=== PATIENT | male | born 1930 | race Caucasian/White ===

== ENCOUNTER 2018-06-14 15:43 | Outpatient (CLI) | payer MEDICARE ==
[2018-06-14 17:33] LABS: #Eosinphils 0.9 thou/uL (0.0-0.7); #Lymphocytes 2.1 thou/uL (1.20-3.40); #Monocytes 0.7 thou/uL (0.11-0.59); #Neutrophils 5.3 thou/uL (1.40-6.50); %Basophils 0.1 % (0.0-1.0); %Eosinophils 9.6 % (0.0-10.0); %Lymphocytes 23.3 % (21.0-51.0); %Monocytes 8.2 % (0.0-10.0); %Neutrophils 58.9 % (42.0-75.0); Hemoglobin 14.1 g/dL (14.0-18.0); Mean Corpuscular HGB CONC 33.1 g/dL (32.0-36.0); Mean Corpuscular Hemoglobin 31.1 pg (27.0-31.0); Mean Corpuscular Volume 93.9 fL (78.0-98.0); Mean Platelet Volume 7.6 fL (7.4-10.4); Platelet Count 304 thou/uL (130-400); RBC Distribution Width 12.3 % (11.5-14.5); Red Blood Cell (RBC) Count 4.55 mill/uL (4.70-6.10)
[2018-06-14 17:39] LABS: PTT 28.7 SEC (22.9-36.1); Prothrombin Time 13.5 SEC (12.0-14.7)
[2018-06-14 18:20] LABS: ALT (SGPT) 12 U/L (8-55); AST (SGOT) 15 U/L (5-34); Albumin 4.3 g/dL (3.4-4.8); Alkaline Phosphatase 88 U/L (40-150); Anion Gap 15 mmol/L (10-20); BUN (Urea Nitrogen) 40 mg/dL (8.4-25.7); Bilirubin, Total 0.3 mg/dL (0.2-1.2); Calc. Creatinine Clearance 0 mL/min (70-130); Calcium 9.5 mg/dL (7.8-10.44); Carbon Dioxide 26 mmol/L (23-31); Chloride 104 mmol/L (98-107); Estimated GFR-MDRD 35; Glucose 148 mg/dL (83-110); Potassium 4.5 mmol/L (3.5-5.1); Protein, Total 7.3 g/dL (5.8-8.1); Sodium 140 mmol/L (136-145)
== END 2018-06-14 15:44 | disposition home or self-care (01) ==
LOC: LABBT 15:43
PROVIDERS: ATTEND Internal Medicine Cardiovascular Disease
DX: Z01.812 Encounter for preprocedural laboratory examination (principal); I35.0 Nonrheumatic aortic (valve) stenosis
CPT/HCPCS: 80053; 85025; 85610; 85730

== ENCOUNTER → 2018-06-21 | Day surgery (SDC) | payer MEDICARE ==
[2018-06-14 16:07] VITALS: BMI 27.3
[~2018-06-21] MED LIST: Diazepam 5 MG TAB ONE; Fentanyl 100 MCG/2 ML VIAL ONE; Heparin 10,000 UNITS/1 ML VIAL ONE; Iopamidol 370 76% 100 ML VIAL ONE; Nitroglycerin 100MG/250ML BOT 0 ML ONE
== END ==
LOC: CCL 05:51
PROVIDERS: ATTEND Internal Medicine Cardiovascular Disease
PROC: 4A023N7 Measurement of Cardiac Sampling and Pressure, Left Heart, Percutaneous Approach (ICD-10-PCS; principal; 2018-06-21)
PROC: B2131ZZ Fluoroscopy of Multiple Coronary Artery Bypass Grafts using Low Osmolar Contrast (ICD-10-PCS; 2018-06-21)
DX: I25.10 Atherosclerotic heart disease of native coronary artery without angina pectoris (principal); I25.82 Chronic total occlusion of coronary artery; I35.0 Nonrheumatic aortic (valve) stenosis; I10 Essential (primary) hypertension; E11.9 Type 2 diabetes mellitus without complications; E78.00 Pure hypercholesterolemia, unspecified; Z88.0 Allergy status to penicillin; Z95.1 Presence of aortocoronary bypass graft; Z79.84 Long term (current) use of oral hypoglycemic drugs; Z79.82 Long term (current) use of aspirin; Z79.899 Other long term (current) drug therapy
CPT/HCPCS: 76942; 93455; C1769; J1644; J3010

== ENCOUNTER 2018-06-27 08:19 | Outpatient (CLI) | payer MEDICARE ==
[2018-06-27 10:40] LABS: #Eosinphils 0.9 thou/uL (0.0-0.7); #Lymphocytes 1.9 thou/uL (1.20-3.40); #Monocytes 0.7 thou/uL (0.11-0.59); #Neutrophils 6.1 thou/uL (1.40-6.50); %Basophils 0.5 % (0.0-1.0); %Eosinophils 9.2 % (0.0-10.0); %Lymphocytes 19.6 % (21.0-51.0); %Monocytes 7.1 % (0.0-10.0); %Neutrophils 63.7 % (42.0-75.0); Hemoglobin 14.1 g/dL (14.0-18.0); Mean Corpuscular Hemoglobin 30.9 pg (27.0-31.0); Mean Corpuscular Volume 93.5 fL (78.0-98.0); Mean Platelet Volume 7.9 fL (7.4-10.4); Platelet Count 254 thou/uL (130-400); RBC Distribution Width 12.5 % (11.5-14.5); Red Blood Cell (RBC) Count 4.58 mill/uL (4.70-6.10); White Blood Cell (WBC) Count 9.5 thou/uL (4.8-10.8)
== END 2018-06-27 08:20 | disposition home or self-care (01) ==
LOC: LABBT 08:19
PROVIDERS: ATTEND Internal Medicine Cardiovascular Disease
DX: Z01.812 Encounter for preprocedural laboratory examination (principal); I25.10 Atherosclerotic heart disease of native coronary artery without angina pectoris
CPT/HCPCS: 85025

== ENCOUNTER 2018-06-28 05:52 | Observation (INO) | payer MEDICARE ==
[2018-06-28] MEDS ORDERED: Lidocaine 1% (PF) 30 ML VIAL ONE (06:38)
[2018-06-28] MEDS ORDERED: Clopidogrel Bisulfate 300 MG TAB ONE (06:43)
[2018-06-28] MEDS ORDERED: Heparin 10,000 UNITS/1 ML VIAL ONE ×2 (07:14→08:28)
[2018-06-28] MEDS ORDERED: Iopamidol 370 76% 100 ML VIAL ONE (09:00)
[2018-06-28] MEDS ORDERED: Iopamidol 370 76% 50 ML VIAL FS ONE (09:00)
--- NOTE | 2018-06-28 17:56 | EKG ---
Test Reason : POST STENT Blood Pressure : / mmHG Vent. Rate : 056 BPM Atrial Rate : 056 BPM P-R Int : 242 ms QRS Dur : 092 ms QT Int : 404 ms P-R-T Axes : -10 -33 173 degrees QTc Int : 389 ms Sinus bradycardia with 1st degree A-V block Left axis deviation Anteroseptal infarct , age undetermined Abnormal ECG When compared with ECG of 19-MAY-2011 13:28, NV interval has increased Anteroseptal infarct is now Present Nonspecific T wave abnormality, worse in Lateral leads Confirmed by JOSE ELIAS MELISSA ([id number]) on 06/28/2018 5:55:57 PM Referred By: SWAPNIL Confirmed By:JOSE ELIAS MELISSA
[2018-06-28] MEDS ORDERED: Sodium Chloride 0.9% 1,000 ML IV SCH (18:02)
[2018-06-28] MEDS ORDERED: Acetaminophen/Codeine 30-300mg Tablet PO PRN ×2 (18:02)
[2018-06-28] MEDS ORDERED: traMADol HCl 50 MG TAB PO PRN (18:02)
[2018-06-28] MEDS ORDERED: clonazePAM 1 MG TAB PO PRN (18:06)
[2018-06-28] MEDS ORDERED: cloNIDine 0.1 MG TAB PO PRN (18:07)
[2018-06-28 19:43] VITALS: BMI 25.9
[2018-06-29 05:03] VITALS: TEMP 98.2
[2018-06-29 05:21] LABS: Anion Gap 12 mmol/L (10-20); BUN (Urea Nitrogen) 15 mg/dL (8.4-25.7); Calc. Creatinine Clearance 64 mL/min (70-130); Carbon Dioxide 24 mmol/L (23-31); Chloride 106 mmol/L (98-107); Estimated GFR-MDRD 76; Glucose 107 mg/dL (83-110); Potassium 3.9 mmol/L (3.5-5.1); Sodium 138 mmol/L (136-145)
[2018-06-29] MEDS ORDERED: Torsemide 20 MG TAB PO SCH (09:00)
[2018-06-29] MEDS ORDERED: Amlodipine 5 MG TAB PO SCH (09:00)
[2018-06-29] MEDS ORDERED: Clopidogrel Bisulfate 75 MG TAB PO SCH (09:00)
[2018-06-29] MEDS ORDERED: Allopurinol 100 MG TAB PO SCH (09:00)
[2018-06-29] MEDS ORDERED: Carvedilol 25 MG TAB PO SCH (09:00)
[2018-06-29 12:41] VITALS: BP 163/72
--- NOTE | 2018-06-29 13:44 | ULT ---
FOCUSED VASCULAR ULTRASOUND OF THE RIGHT INGUINAL REGION: Date: 06/29/18 HISTORY: Right inguinal discomfort, cardiac catheterization performed 2 weeks ago, and 06/28/18, assess for he matoma or pseudoaneurysm. TECHNIQUE: Multiplanar Leahy scale sonographic assessment of the right inguinal region with Doppler interrogation of the inguinal vasculature including color flow and spectral analysis obtained. FINDINGS: There is soft tissue swelling in the right inguinal region. There is a small lymph node incidentally noted. The common femoral artery and common femoral vein demonstrate patency. No appreciable hematoma is see n. No sonographic evidence of a patent pseudoaneurysm. IMPRESSION: No sonographic evidence of pseudoaneurysm of right inguinal region. Soft tissue swelling noted with n o evidence for discrete hematoma. POS: DAMIEN
--- NOTE | 2018-06-29 15:11 | DIS ---
DATE OF ADMISSION: 06/28/2018 DATE OF DISCHARGE: 06/29/2018 Mr. Rogel underwent percutaneous coronary intervention to the saphenous vein graft to the right coronary artery. A multipurpose catheter was used. A 3.5 x 24 mm drug-eluting stent was placed. Filter wire was used to post dilate it to 4 atmospheres, it took a very high pressure to open the stent to 16 atmospheres. CONCLUSION: 1. Successful stent implantation. 2. Most recent creatinine is 1.43. 3. He will resume Benicar, which was done today. He will stay on all his medicines including aspirin, Plavix, and amlodipine. Outpatient transcutaneous aortic valve replacement will be pursued as he does have severe aortic stenosis based on the echocardiogram done in the office recently. Job ID: [id number]
[2018-06-30] MEDS ORDERED: metFORMIN 500 MG TAB PO SCH (08:00)
--- NOTE | 2018-06-30 11:14 | DIS ---
DATE OF ADMISSION: 06/28/2018 DATE OF DISCHARGE: 06/29/2018 Mr. Rogel is doing well today. FINAL DIAGNOSIS: Coronary artery disease. PROCEDURES: Outpatient stent implantation and saphenous vein graft to the right coronary artery. HOSPITAL COURSE: This gentleman was admitted to the hospital having anginal chest pain. He has severe aortic stenosis. He has previous bypass surgery, had a severe stenosis in the right coronary artery to saphenous vein graft. He underwent successful implantation of a drug-coated stent, 3.5 x 24 mm stent and a FilterWire was used, post-dilated to 4 mm with a noncompliant balloon. There was a resistant lesion, but finally was able to be expanded. The patient will be seen in the office in a month. Following that, he will be referred to [place] for consideration of transcutaneous aortic valve replacement. As a precaution, he was given fluids and hydrated. His most recent creatinine actually markedly improved to 0.94. Previously, his creatinine had gone as high as 1.84 on 06/14/2018. Actually, we will ask him to reduce the torsemide to 10 mg a day for 20. Job ID: [id number]
== END 2018-06-29 14:23 | disposition home or self-care (01) ==
LOC: CCL 05:52 → 2SW 17:24
PROVIDERS: ADMIT Internal Medicine Cardiovascular Disease; ATTEND Internal Medicine Cardiovascular Disease
PROC: 027034Z Dilation of Coronary Artery, One Artery with Drug-eluting Intraluminal Device, Percutaneous Approach (ICD-10-PCS; principal; 2018-06-28)
PROC: 4A023N7 Measurement of Cardiac Sampling and Pressure, Left Heart, Percutaneous Approach (ICD-10-PCS; 2018-06-28)
PROC: B2111ZZ Fluoroscopy of Multiple Coronary Arteries using Low Osmolar Contrast (ICD-10-PCS; 2018-06-28)
PROC: B2131ZZ Fluoroscopy of Multiple Coronary Artery Bypass Grafts using Low Osmolar Contrast (ICD-10-PCS; 2018-06-28)
PROC: B2181ZZ Fluoroscopy of Left Internal Mammary Bypass Graft using Low Osmolar Contrast (ICD-10-PCS; 2018-06-28)
DX: I25.719 Atherosclerosis of autologous vein coronary artery bypass graft(s) with unspecified angina pectoris (principal); I25.119 Atherosclerotic heart disease of native coronary artery with unspecified angina pectoris; I35.0 Nonrheumatic aortic (valve) stenosis; E11.9 Type 2 diabetes mellitus without complications; E78.5 Hyperlipidemia, unspecified; E78.00 Pure hypercholesterolemia, unspecified; I10 Essential (primary) hypertension; Z79.02 Long term (current) use of antithrombotics/antiplatelets; Z79.82 Long term (current) use of aspirin; Z79.84 Long term (current) use of oral hypoglycemic drugs; Z79.899 Other long term (current) drug therapy; Z88.0 Allergy status to penicillin; Z95.1 Presence of aortocoronary bypass graft; Z95.5 Presence of coronary angioplasty implant and graft
CPT/HCPCS: 76942; 80048; 82962; 85347 ×3; 90662; 93005; 93454; 93798; 93926; C1769 ×2; C1874; C1887; C9600; G0008; G0378; 36415; 36416; 90471; 92928; J1644; J2001

== ENCOUNTER 2019-05-03 11:02 | Outpatient (CLI) | payer MEDICARE ==
--- NOTE | 2019-05-03 13:46 | MRI ---
MRI LUMBAR SPINE WITHOUT CONTRAST: Date: 05/03/19 INDICATION: Lumbar spinal stenosis. Back pain. FINDINGS: The lumbar vertebra maintain height. Moderate degenerative changes are seen throughout. There is loss of disc space at all levels with degenerative disc and end plate changes throughout the lumbar spine . There is a mild curvature to the right. At T12-L1, there is a broad based disc bulge flattening the thecal sac. Facet and ligamentous hypertr ophy is present. Mild to moderate central canal stenosis at this level. At L1-2, diffuse disc bulge. Facet and ligamentous hypertrophy is prominent. Moderate central canal s tenosis. Bilateral foraminal stenosis is noted. At L2-3, there is severe degenerative disc and end plate change. Broad based disc bulge. Prominent fa cet and ligamentous hypertrophy. Severe central canal stenosis. Bilateral foraminal stenosis. At L3-4, there is mild disc bulge. Prominent facet and ligamentous hypertrophy. Moderate central jake l stenosis. Bilateral foraminal stenosis. At L4-5, there is a broad based disc bulge. Moderate facet and ligamentous hypertrophy. Mild to moder ate central canal stenosis. Bilateral foraminal stenosis, more pronounced on the left. At L5-S1, annular fissure with small focal protrusion centrally indenting the anterior thecal sac and displacing the traversing left S1 nerve root. Mild central canal stenosis. Mild bilateral foraminal narrowing from disc bulge and facet hypertrophy, more pronounced on the left. IMPRESSION: Central canal and foraminal stenosis at multiple levels as described above. POS: TPC
--- NOTE | 2019-05-03 14:03 | RAD ---
LUMBAR SPINE 4 VIEWS: Date: 05/03/19 HISTORY: Lumbar spinal stenosis. Lumbar pain. FINDINGS: Curvature of the mid lumbar spine to the left with apex at L3-4. There is lateral compression of L3 a nd L4 vertebra due to this scoliotic curvature. Prominent osteophytes are present with lateral osteop hytes prominent at L2-3 and L3-4 secondary to the scoliotic curvature. There is loss of disc space a t all levels. In the lateral view, the lumbar vertebra maintain height. There is a slight posterolist hesis of L1-2 in the lateral projection. Prominent facet hypertrophy. IMPRESSION: There are moderate degenerative changes of the lumbar spine with a scoliotic curvature as described a nick. POS: TPC
== END 2019-05-03 11:03 | disposition home or self-care (01) ==
LOC: MRI 11:02
PROVIDERS: ATTEND Neurological Surgery
DX: M48.062 Spinal stenosis, lumbar region with neurogenic claudication (principal); M47.816 Spondylosis without myelopathy or radiculopathy, lumbar region; M48.07 Spinal stenosis, lumbosacral region; M41.9 Scoliosis, unspecified
CPT/HCPCS: 72120; 72148

== ENCOUNTER 2019-07-18 06:16 | Outpatient (CLI) | payer MEDICARE ==
[2019-07-18 12:12] LABS: Hemoglobin 12.2 g/dL (14.0-18.0); Mean Corpuscular HGB CONC 33.7 g/dL (32.0-36.0); Mean Corpuscular Hemoglobin 31.1 pg (27.0-31.0); Mean Corpuscular Volume 92.3 fL (78.0-98.0); Mean Platelet Volume 7.4 fL (7.4-10.4); Platelet Count 253 thou/uL (130-400); RBC Distribution Width 11.9 % (11.5-14.5); Red Blood Cell (RBC) Count 3.91 mill/uL (4.70-6.10); White Blood Cell (WBC) Count 8.8 thou/uL (4.8-10.8)
[2019-07-18 12:17] LABS: PTT 28.6 SEC (22.9-36.1); Prothrombin Time 13.5 SEC (12.0-14.7)
[2019-07-18 12:46] LABS: Anion Gap 13 mmol/L (10-20); BUN (Urea Nitrogen) 35 mg/dL (8.4-25.7); Calc. Creatinine Clearance 0 mL/min (70-130); Calcium 9.2 mg/dL (7.8-10.44); Carbon Dioxide 26 mmol/L (23-31); Chloride 104 mmol/L (98-107); Estimated GFR-MDRD 49; Glucose 139 mg/dL (83-110); Potassium 4.7 mmol/L (3.5-5.1); Sodium 138 mmol/L (136-145)
== END 2019-07-18 06:17 | disposition home or self-care (01) ==
LOC: LABBT 06:16
PROVIDERS: ATTEND Neurological Surgery
DX: Z01.812 Encounter for preprocedural laboratory examination (principal); M48.061 Spinal stenosis, lumbar region without neurogenic claudication
CPT/HCPCS: 80048; 85027; 85610; 85730

== ENCOUNTER 2019-07-21 05:40 | Inpatient (IN) | payer MEDICARE ==
[2019-07-18 11:13] VITALS: BMI 25.1
--- NOTE | 2019-07-20 09:25 | HP ---
REASON FOR ADMISSION: "I'm here for back surgery." HISTORY OF PRESENT ILLNESS: Mr. Rogel is a pleasant 88-year-old gentleman, whom we first met in our Neurosurgery Clinic in April 2016. In the 1970s, Mr. Rogel had, had back surgery in [place] for disk disease. It had been well for decades. In the years preceding his visit and the subsequent 3 years until this admission, he has been managed with a combination of physical therapy, injections, and oral analgesics. He recently returned to our office because these interventions were no longer helping him. The pain he had in his lower extremities with standing is significant and prevented him from having the quality of life he wants. His MRI scan shows multilevel lumbar stenosis causing his neurogenic claudication and he is here to have a decompression. PAST MEDICAL HISTORY: Includes coronary artery disease, diabetes, and hypertension. PAST SURGICAL HISTORY: Includes appendectomy, coronary artery bypass graft, lumbar disk surgery in the , elbow surgery, and rotator cuff repair. MEDICATIONS: 1. Gemfibrozil. 2. Carvedilol. 3. Amlodipine. 4. Niacin. 5. Clonidine. 6. Clonazepam. 7. Aspirin 81 mg daily. 8. Victoza. 9. Allopurinol. 10. Metformin. ALLERGIES: PENICILLIN CAUSES HIVES. FAMILY HISTORY: Both of his parents have . No history of complications of anesthesia in the family. There is no bleeding diathesis history. SOCIAL HISTORY: Mr. Rogel is retired. He is a nonsmoker. REVIEW OF SYSTEMS: Otherwise, negative. PHYSICAL EXAMINATION: NEUROLOGIC: Mr. Rogel is 5 feet 9 inches tall and weighs 170 pounds. He is awake and alert. There is no obvious cognitive deficit. His speech is fluent without dysarthria or dysphasia. In the lower extremities, no loss of strength in the iliopsoas, the quadriceps, the hamstrings, anterior to the EHL, the gastroc, and the toe flexors. There is no obvious specific dermatomal sensory loss, but there is a stocking distribution. Decreased sensation in the distal feet. The gait is normal for his age, but the longer he stands, the more he has to bend forward. IMAGING FINDINGS: The lumbar MR imaging suggest multilevel lumbar stenosis, which is severe. Flexion-extension views show that he has a scoliotic curve, but there is no translation on flexion or extension. 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 ASSESSMENT AND PLAN: Mr. Rogel is ready for his decompression operation. We will take him to the operating room for multilevel lumbar laminectomy with foraminotomies. Informed consent: In the clinic, we discussed indications, risks, benefits, alternatives, and expected outcomes from surgery. The risks we discussed included, but were not limited to, bleeding, infection, CSF leak, nerve damage, cauda equina injury, incontinence, paralysis, wheelchair dependence, cardiopulmonary complications of anesthesia, major blood vessel injury, and . Future complications include spinal instability, need for revision or future surgeries. He understands the risks and wants to proceed. We will take him to the operating room. Job ID: [id number]
[2019-07-21] MEDS ORDERED: Levofloxacin 500 mg/D5W 100 ml Premix Bag ONE (06:10)
[2019-07-21] MEDS ORDERED: Clindamycin/D5W 900 mg/50 ml Premix Bag ONE (06:10)
[2019-07-21] MEDS ORDERED: Thrombin 5000 UNITS/5 ML VIAL ONE (06:12)
[2019-07-21] MEDS ORDERED: Bupivacaine PF 0.5% 30 ML VIAL ONE (06:12)
[2019-07-21] MEDS ORDERED: Albumin 5% 500 ML ONE (06:50)
[2019-07-21] MEDS ORDERED: Rocuronium Bromide 10 MG/ML (10ML VIAL) ONE (07:07)
[2019-07-21] MEDS ORDERED: PHENYLEPHRINE-NS 100 MCG/ML 10 ML SYRINGE ONE (07:07)
[2019-07-21] MEDS ORDERED: PROPOFOL 200 MG/20 ML VIAL ONE (07:07)
[2019-07-21] MEDS ORDERED: Lidocaine 1% PF 5 ML VIAL ONE (07:07)
[2019-07-21] MEDS ORDERED: ePHEDrine/0.9% NaCl/PF SYRINGE 50 mg/10 ml ONE (07:07)
[2019-07-21] MEDS ORDERED: Ondansetron PF 4 MG/2 ML Vial ONE (07:07)
[2019-07-21] MEDS ORDERED: Glycopyrrolate 0.2 MG/ML 5 ML SYRINGE ONE (07:07)
[2019-07-21] MEDS ORDERED: Metoclopramide HCl 10 MG/2 ML VIAL ONE (07:07)
[2019-07-21] MEDS ORDERED: Fentanyl 100 MCG/2 ML VIAL ONE ×3 (07:09→11:28)
[2019-07-21] MEDS ORDERED: Acetaminophen 325 MG TAB PO PRN (11:08)
[2019-07-21] MEDS ORDERED: tiZANidine HCl 4 MG TAB PO PRN (11:08)
[2019-07-21] MEDS ORDERED: diphenhydrAMINE 50 MG/ML VIAL IVP PRN (11:08)
[2019-07-21] MEDS ORDERED: Acetaminophen 650 MG Suppository PR PRN (11:08)
[2019-07-21] MEDS ORDERED: Milk Of Magnesia 30 ML UDCUP PO PRN (11:08)
[2019-07-21] MEDS ORDERED: Ondansetron PF 4 MG/2 ML Vial IVP PRN (11:08)
[2019-07-21] MEDS ORDERED: Promethazine HCl 12.5 MG SUPP PR PRN (11:08)
[2019-07-21] MEDS ORDERED: Promethazine 25 MG TAB PO PRN (11:08)
[2019-07-21] MEDS ORDERED: Morphine 2 MG/ML SYRINGE SLOW IVP PRN (11:08)
[2019-07-21] MEDS ORDERED: Promethazine HCl 25 MG/ML VIAL IM PRN ×2 (11:08→11:32)
[2019-07-21] MEDS ORDERED: Bisacodyl 10 MG SUPP PR PRN (11:08)
[2019-07-21] MEDS ORDERED: Morphine 4 MG/ML VIAL SLOW IVP PRN (11:08)
[2019-07-21] MEDS ORDERED: Mag-Al 1200 mg/1200 mg/30 ML UDCUP PO PRN (11:08)
[2019-07-21] MEDS ORDERED: Acetaminophen/Codeine 30-300mg Tablet PO PRN ×2 (11:08)
[2019-07-21] MEDS ORDERED: cloNIDine 0.1 MG TAB PO PRN (11:11)
[2019-07-21] MEDS ORDERED: clonazePAM 1 MG TAB PO PRN (11:11)
[2019-07-21] MEDS ORDERED: Morphine Sulfate 2 MG/ML SYRINGE SLOW IVP PRN (11:32)
[2019-07-21] MEDS ORDERED: PACU-Morphine 4MG/ML VIAL SLOW IVP PRN (11:32)
[2019-07-21] MEDS ORDERED: Ondansetron HCl/PF 4 MG/2 ML Vial IVP PRN (11:32)
[2019-07-21] MEDS ORDERED: Promethazine HCl 25 MG/ML VIAL SLOW IVP PRN (11:32)
[2019-07-21] MEDS ORDERED: HYDROmorphone 2 MG/ML VIAL SLOW IVP PRN (11:32)
--- NOTE | 2019-07-21 12:01 | OP ---
DATE OF PROCEDURE: 07/21/2019 PRESS SET UP: None. PREOPERATIVE INDICATIONS: Treat pain and prevent neurological deterioration. PREOPERATIVE DIAGNOSIS: Multilevel lumbar stenosis with neurogenic claudication. POSTOPERATIVE DIAGNOSIS: Multilevel lumbar stenosis with neurogenic claudication. PROCEDURES PERFORMED: Decompressive laminectomy, medial facetectomy, and foraminotomy, L1-L2, L2-L3, L3-L4, and L4-L5. PREOPERATIVE MEDICATIONS: 1. Clindamycin 900 mg IV. 2. Levaquin 500 mg IV. DRAIN NUMBER: One. DRAIN TYPE: 10-[place] Neftali. DESCRIPTION OF PROCEDURE: The patient was brought to the operating room. General endotracheal anesthesia was induced. The patient was positioned prone on the operating table with his chest and hips supported by gel-filled chest rolls. A lateral fluoro radiograph was used to plan our incision. The lumbar skin was sterilely prepped and draped. We opened our planned incision with a 10-blade knife and controlled bleeding with bipolar cautery. We used monopolar cautery to dissect through the subcutaneous tissues to the thoracodorsal fascia. We incised the fascia in the midline and reflected the paraspinal muscles off the spinous process and lamina from L1 through L5. A self-retaining retractor was placed. A lateral fluoro radiograph confirmed the levels upon which we were operating. We then used an Adson rongeur to remove the spinous processes from L1 all the way to the top of L5. A Kerrison rongeur was used to fashion a laminectomy down the midline. Most of the compression was in the lateral recesses under the enlarged facet joints and bone spurs. Medial facetectomies needed to be performed at L1-L2, L2-L3, L3-L4, and L4-L5 as well as foraminotomies over the exiting L1 through L5 nerve roots on either side. Once our decompression was secured, we irrigated copiously with bacitracin irrigation. We infused local anesthetic in the paraspinal muscles. We treated the wound with vancomycin powder, and we closed the wound over a drain that was tunneled inferiorly through a separate stab incision. A sterile dressing was applied. This was a clean case, no contamination. Job ID: [id number]
[2019-07-21] MEDS: Sodium Chloride 0.9% 1,000 ML IV SCH (12:44)
[2019-07-21] MEDS ORDERED: Dextrose 50% Abboject 50 ML SYRINGE SLOW IVP PRN (13:25)
[2019-07-21] MEDS ORDERED: Insulin Regular 300 UNITS/3 ML VIAL SC PRN ×2 (13:25)
[2019-07-21] MEDS ORDERED: Dextrose 5% in Water 1,000 ML IV PRN (13:25)
[2019-07-21] MEDS: Scopolamine 1.5 mg/72 hour Patch TD SCH (13:36)
[2019-07-21] MEDS: Clindamycin/D5W 900 MG in Premix Bag 1 BAG IVPB SCH ×2 (16:55→21:03)
[2019-07-21] MEDS: HYDROcodone/Acetaminophen 7.5/325 mg Tablet PO PRN (17:15)
[2019-07-21] MEDS: metFORMIN 500 MG TAB PO SCH (18:27)
[2019-07-21] MEDS: Gemfibrozil 600 MG TAB PO SCH (21:03)
[2019-07-21] MEDS: Carvedilol 25 MG TAB PO SCH (21:04)
[2019-07-22 00:34] LABS: Bacteria/HPF None Seen HPF (None Seen); Bilirubin Negative (Negative); Blood, Urine Negative (Negative); Clarity Clear (Clear); Glucose, Urine (Dipstick) Normal (Negative); Leukocyte 25 Leu/uL (Negative); Nitrite Negative (Negative); Protein, Urine (Dipstick) 20 mg/dL (Neg-Trace); RBC/HPF 0-3 HPF (0-3); Squamous Epithelial None Seen HPF (0-3); Urobilinogen Normal mg/dL (Less than 2); WBC/HPF 0-3 HPF (0-3)
[2019-07-22 00:35] LABS: Urine Culture Reflex No No
[2019-07-22] MEDS: Sodium Chloride 0.9% 1,000 ML IV SCH ×2 (04:28→15:20)
[2019-07-22] MEDS: Tamsulosin HCl 0.4 MG CAP PO SCH (05:02)
[2019-07-22 05:58] LABS: #Lymphocytes 1.1 thou/uL (1.20-3.40); #Monocytes 1.1 thou/uL (0.11-0.59); #Neutrophils 8.5 thou/uL (1.40-6.50); %Basophils 0.1 % (0.0-1.0); %Eosinophils 0.1 % (0.0-10.0); %Lymphocytes 10.5 % (21.0-51.0); %Monocytes 10.2 % (0.0-10.0); %Neutrophils 79.1 % (42.0-75.0); Hemoglobin 9.6 g/dL (14.0-18.0); Mean Corpuscular HGB CONC 33.9 g/dL (32.0-36.0); Mean Corpuscular Hemoglobin 31.7 pg (27.0-31.0); Mean Corpuscular Volume 93.6 fL (78.0-98.0); Mean Platelet Volume 7.8 fL (7.4-10.4); Platelet Count 198 thou/uL (130-400); RBC Distribution Width 12.1 % (11.5-14.5); Red Blood Cell (RBC) Count 3.04 mill/uL (4.70-6.10); White Blood Cell (WBC) Count 10.8 thou/uL (4.8-10.8)
[2019-07-22 06:15] LABS: Carbon Dioxide 23 mmol/L (23-31); Chloride 105 mmol/L (98-107); Potassium 4.3 mmol/L (3.5-5.1); Sodium 138 mmol/L (136-145)
[2019-07-22 06:16] LABS: Anion Gap 14 mmol/L (10-20); BUN (Urea Nitrogen) 30 mg/dL (8.4-25.7); Calc. Creatinine Clearance 40 mL/min (70-130); Calcium 8.5 mg/dL (7.8-10.44); Estimated GFR-MDRD 48; Glucose 127 mg/dL (83-110); Magnesium 1.8 mg/dL (1.6-2.6)
--- NOTE | 2019-07-22 07:30 | PDOC.HOSPP ---
- Subjective Encounter Date: 07/21/19 Encounter Time: 18:20 Subjective: Patient seen and examined for med mngt. Follows Dr Pompa and Dr Eastman. Pain controlled. No CP/SOB. No new complaints. No overnight events - Objective Vital Signs & Weight: Vital Signs (12 hours) Temp Pulse Resp BP BP Pulse Ox 07/22/19 03:57 98.8 F 70 20 171/71 H 94 L 07/21/19 23:55 98.3 F 67 18 125/66 92 L 07/21/19 20:00 98 F 64 18 146/63 H 99 Weight Weight 170 lb I&O: 07/21/19 07/22/19 07/23/19 06:59 06:59 06:59 Intake Total 1075 Output Total 1290 Balance -215 Result Diagrams: 07/22/19 05:37 07/22/19 05:37 Additional Labs: Accuchecks 07/21/19 14:19 POC Glucose 157 H EKG Reviewed by me: Yes (SR) Hospitalist ROS - Review of Systems Respiratory: denies: cough, dry, shortness of breath, hemoptysis, SOB with excertion, pleuritic pain, sputum, wheezing, other Cardiovascular: denies: chest pain, palpitations, orthopnea, paroxysmal noc. dyspnea, edema, light headedness, other Gastrointestinal: denies: nausea, vomiting, abdominal pain, diarrhea, constipation, melena, hematochezia, other - Medication Medications: Active Medications Generic Name Dose Route Start Last Admin Trade Name Freq PRN Reason Stop Dose Admin Hydrocodone Bitart/Acetaminophen 1 tab 07/21/19 11:08 07/21/19 17:15 [place] 7.5/325 PO 1 tab Q4H PRN Administration Moderate Pain (4-6) Carvedilol 25 mg 07/21/19 21:00 07/21/19 21:04 Coreg PO 25 mg BID SUSANNA Administration Gemfibrozil 600 mg 07/21/19 21:00 07/21/19 21:03 Lopid PO 600 mg BID SUSANNA Administration Sodium Chloride 1,000 mls @ 75 mls/hr 07/21/19 11:15 07/22/19 04:28 Normal Saline 0.9% IV Not Given .[id number] SUSANNA Metformin HCl 500 mg 07/21/19 17:00 07/21/19 18:27 Glucophage PO Not Given BID-WM SUSANNA Promethazine HCl 12.5 mg 07/21/19 11:08 07/21/19 13:36 Phenergan PO 12.5 mg Q4H PRN Administration Nausea/Vomiting Scopolamine 1.5 mg 07/21/19 12:00 07/21/19 13:36 Transderm Scop TD 1.5 mg Q3D SUSANNA Administration Tamsulosin HCl 0.4 mg 07/22/19 06:00 07/22/19 05:02 Flomax PO 0.4 mg 0600 SUSANNA Administration - Exam General Appearance: NAD Neck: supple, no JVD Heart: RRR, no gallops Respiratory: no wheezes, no rales Gastrointestinal: soft, non-distended, normal bowel sounds Extremities: no edema Hosp A/P (1) HTN (hypertension) Code(s): I10 - ESSENTIAL (PRIMARY) HYPERTENSION (2) Dyslipidemia Code(s): E78.5 - HYPERLIPIDEMIA, UNSPECIFIED (3) CAD (coronary artery disease) Code(s): I25.10 - ATHSCL HEART DISEASE OF [place] CORONARY ARTERY W/O ANG PCTRS (4) S/P CABG (coronary artery bypass graft) Code(s): Z95.1 - PRESENCE OF AORTOCORONARY BYPASS GRAFT (5) Gout Code(s): M10.9 - GOUT, UNSPECIFIED (6) DM2 (diabetes mellitus, type 2) Qualifiers: Chronic kidney disease stage: stage 3 (moderate) - Plan DVT proph w/SCDs Does not remember the names of his meds Will resume selected home meds per recent preop visit - Coreg/Amlodipine/Digoxin /Lopis/Olmesartan/Torsemide No need for sliding scale Cont Metformin ASA/Plavix on hold due to surgery Full code DPOA - self/family
[2019-07-22] MEDS: metFORMIN 500 MG TAB PO SCH ×2 (08:30→16:29)
[2019-07-22] MEDS: Gemfibrozil 600 MG TAB PO SCH ×2 (08:30→20:36)
[2019-07-22] MEDS: Clindamycin/D5W 900 MG in Premix Bag 1 BAG IVPB SCH ×3 (08:30→23:41)
[2019-07-22] MEDS: Digoxin 0.125 MG TAB PO SCH (08:30)
[2019-07-22] MEDS: Senokot S 8.6-50 MG TAB PO SCH ×2 (08:30→20:36)
[2019-07-22] MEDS: Allopurinol 100 MG TAB PO SCH (08:30)
[2019-07-22] MEDS: Torsemide 20 MG TAB PO SCH (08:31)
[2019-07-22] MEDS: Losartan 25 MG TAB PO SCH (08:31)
[2019-07-22] MEDS: Amlodipine 5 MG TAB PO SCH (08:31)
[2019-07-22] MEDS: Carvedilol 25 MG TAB PO SCH ×2 (08:31→20:36)
[2019-07-22] MEDS: Aspirin Chewable 81 MG TAB PO SCH (08:32)
--- NOTE | 2019-07-22 08:33 | PRG ---
DATE OF SERVICE: 07/22/2019 SUBJECTIVE: The patient is postoperative day 1, status post L1-L5 laminectomy. Following the surgery, he was transitioned to the Med/Surg floor where his pain has been well controlled with p.o. medications, he is tolerating regular diet. He does have an indwelling Herrera catheter placed. He also had a DENISA drain placed intraoperatively, which had 90 mL out over the first night. The patient has no complaints this morning. Reports he rested well. OBJECTIVE: GENERAL: On exam, the patient is awake, alert, in no acute distress. EXTREMITIES: He has free active range of motion of all extremities. No focal motor weakness. There is a small amount of bright red blood in the DENISA drain. PLAN: We will leave DENISA drain an additional evening. We will begin to mobilize the patient with the assistance of PT and OT. The patient has expressed the desire to go to inpatient rehabilitation at discharge. A rehab screen has been placed and Case Management is assisting with discharge planning. We will go ahead and remove his Herrera catheter today and begin to mobilize him appropriately. Job ID: [id number]
[2019-07-22] MEDS ORDERED: Amlodipine 5 MG TAB PO SCH (09:00)
[2019-07-22] MEDS ORDERED: Losartan 25 MG TAB PO SCH (09:00)
[2019-07-22] MEDS ORDERED: Prevnar 13-Val Conj/PF 0.5 ML SYRINGE IM ONE (09:00)
[2019-07-22] MEDS ORDERED: Carvedilol 25 MG TAB PO SCH (09:00)
[2019-07-22] MEDS ORDERED: FLU VACC TS2019-20(65YR UP)/PF 180 MCG/0.5 ML SYRINGE IM ONE (09:00)
--- NOTE | 2019-07-22 15:44 | PRG ---
DATE OF SERVICE: 07/22/2019 Mr. Rogel is doing quite well following his multilevel laminectomy. His drain output is still reasonable and we are leaving this one more day. He is gradually mobilizing, but given his age and the extent of the surgery, he is requesting consideration for inpatient rehab, which we will pursue. Job ID: [id number]
--- NOTE | 2019-07-22 18:31 | PDOC.HOSPP ---
- Subjective Encounter Date: 07/22/19 Encounter Time: 18:30 Subjective: Pt seen for followup re: hypertension. States he feels better. - Objective Vital Signs & Weight: Vital Signs (12 hours) Temp Pulse Resp BP BP Pulse Ox 07/22/19 15:44 98.9 F 69 20 150/63 H 93 L 07/22/19 11:01 98.6 F 70 18 120/64 92 L 07/22/19 08:31 63 165/89 H 07/22/19 08:30 67 07/22/19 07:53 99.0 F 63 18 165/89 H 93 L Weight Weight 170 lb I&O: 07/21/19 07/22/19 07/23/19 06:59 06:59 06:59 Intake Total 1075 Output Total 1290 Balance -215 Result Diagrams: 07/22/19 05:37 07/22/19 05:37 Additional Labs: Labs and MARs reviewed by hi Hospitalist ROS - Review of Systems Respiratory: denies: cough, shortness of breath, SOB with excertion, pleuritic pain, wheezing Cardiovascular: denies: chest pain, palpitations, orthopnea, paroxysmal noc. dyspnea, edema, light headedness - Medication Medications: Active Medications Generic Name Dose Route Start Last Admin Trade Name Freq PRN Reason Stop Dose Admin Hydrocodone Bitart/Acetaminophen 1 tab 07/21/19 11:08 07/21/19 17:15 [place] 7.5/325 PO 1 tab Q4H PRN Administration Moderate Pain (4-6) Allopurinol 100 mg 07/22/19 09:00 07/22/19 08:30 Zyloprim PO 100 mg DAILY SUSANNA Administration Amlodipine Besylate 5 mg 07/22/19 09:00 07/22/19 08:31 Norvasc PO 5 mg DAILY SUSANNA Administration Aspirin 81 mg 07/22/19 09:00 07/22/19 08:32 Aspirin Chewable PO 81 mg DAILY SUSANNA Administration Carvedilol 25 mg 07/21/19 21:00 07/22/19 08:31 Coreg PO 25 mg BID SUSANNA Administration Digoxin 0.125 mg 07/22/19 09:00 07/22/19 08:30 Lanoxin PO 0.125 mg QAM SUSANNA Administration Gemfibrozil 600 mg 07/21/19 21:00 07/22/19 08:30 Lopid PO 600 mg BID SUSANNA Administration Sodium Chloride 1,000 mls @ 75 mls/hr 07/21/19 11:15 07/22/19 15:20 Normal Saline 0.9% IV 1,000 mls .[id number] SUSANNA Administration Clindamycin Phosphate/Dextrose 50 mls @ 100 mls/hr 07/22/19 08:00 07/22/19 16 :29 900 mg/ Device IVPB 50 mls 0800,1600,2359 SUSANNA Administration Losartan Potassium 100 mg 07/22/19 09:00 07/22/19 08:31 Cozaar PO 100 mg DAILY SUSANNA Administration Metformin HCl 500 mg 07/21/19 17:00 07/22/19 16:29 Glucophage PO 500 mg BID-WM SUSANNA Administration Promethazine HCl 12.5 mg 07/21/19 11:08 07/21/19 13:36 Phenergan PO 12.5 mg Q4H PRN Administration Nausea/Vomiting Scopolamine 1.5 mg 07/21/19 12:00 07/21/19 13:36 Transderm Scop TD 1.5 mg Q3D SUSANNA Administration Senna/Docusate Sodium 1 tab 07/22/19 09:00 07/22/19 08:30 Senokot S PO 1 tab BID SUSANNA Administration Sodium Chloride 10 ml 07/21/19 11:08 07/22/19 08:30 Flush - Normal Saline IVF 10 ml PRN PRN Administration Saline Flush Tamsulosin HCl 0.4 mg 07/22/19 06:00 07/22/19 05:02 Flomax PO 0.4 mg 0600 SUSANNA Administration Torsemide 20 mg 07/22/19 09:00 07/22/19 08:31 Demadex PO 20 mg DAILY SUSANNA Administration - Exam General Appearance: NAD Eye: anicteric sclera ENT: moist mucosa Neck: supple Heart: RRR Respiratory: CTAB Gastrointestinal: soft, non-tender Extremities: no clubbing Psychiatric: normal affect, normal behavior Hosp A/P - Plan Hosp A/P (1) HTN (hypertension) Code(s): I10 - ESSENTIAL (PRIMARY) HYPERTENSION (2) Dyslipidemia Code(s): E78.5 - HYPERLIPIDEMIA, UNSPECIFIED (3) CAD (coronary artery disease) Code(s): I25.10 - ATHSCL HEART DISEASE OF [place] CORONARY ARTERY W/O ANG PCTRS (4) S/P CABG (coronary artery bypass graft) Code(s): Z95.1 - PRESENCE OF AORTOCORONARY BYPASS GRAFT (5) Gout Code(s): M10.9 - GOUT, UNSPECIFIED (6) DM2 (diabetes mellitus, type 2) Qualifiers: Chronic kidney disease stage: stage 3 (moderate) - Plan DVT proph w/SCDs HTN control improved Continue Coreg/Amlodipine/Digoxin/Lopis/Olmesartan/Torsemide Cont Metformin ASA/Plavix on hold due to surgery Pain management and DVT prophylaxis per neurosurgery
--- NOTE | 2019-07-22 20:16 | PDOC.EVN ---
Event Note - Event Note Event Note: Notified by RN patient with urinary retention, bladder scan: 500mL, unable to fully void. Herrera was placed last night due to urinary retention with bladder scan showing [address] Herrera again. Will consult Urology.
[2019-07-23] MEDS: Tamsulosin HCl 0.4 MG CAP PO SCH (05:40)
[2019-07-23] MEDS: Sodium Chloride 0.9% 1,000 ML IV SCH ×2 (05:40→20:41)
[2019-07-23] MEDS: Torsemide 20 MG TAB PO SCH (08:13)
[2019-07-23] MEDS: Clindamycin/D5W 900 MG in Premix Bag 1 BAG IVPB SCH (08:13)
[2019-07-23] MEDS: Losartan 25 MG TAB PO SCH (08:14)
[2019-07-23] MEDS: Gemfibrozil 600 MG TAB PO SCH ×2 (08:15→20:41)
[2019-07-23] MEDS: Digoxin 0.125 MG TAB PO SCH (08:15)
[2019-07-23] MEDS: metFORMIN 500 MG TAB PO SCH ×2 (08:15→17:45)
[2019-07-23] MEDS: Senokot S 8.6-50 MG TAB PO SCH ×2 (08:15→20:41)
[2019-07-23] MEDS: Amlodipine 5 MG TAB PO SCH (08:15)
[2019-07-23] MEDS: Allopurinol 100 MG TAB PO SCH (08:15)
[2019-07-23] MEDS: Aspirin Chewable 81 MG TAB PO SCH (08:15)
[2019-07-23] MEDS: Carvedilol 25 MG TAB PO SCH ×2 (08:15→20:41)
--- NOTE | 2019-07-23 09:16 | PRG ---
DATE OF SERVICE: 07/23/2019 SUBJECTIVE: The patient is postoperative day #2, status post L1-L5 laminectomy. Overnight, he did develop some urinary retention and had to have Herrera catheter replaced. His DENISA output is beginning to trend downward and only had 50 mL out overnight. He reports minimal pain and is moving his legs easily in the bed. He has been mobilizing some with Physical Therapy. He still would like to go to rehab if possible at discharge. OBJECTIVE: GENERAL: On exam, this morning, he is awake, alert, in no acute distress. EXTREMITIES: He has free active range of motion of all extremities. No focal motor weakness. No reflex asymmetry. Incision is clean, dry, and intact. There is a small amount of serosanguineous blood in the DENISA. PLAN: We will plan to remove his DENISA drain. Continue to mobilize with the assistance of PT. Urology consult has been placed for his urinary retention. Job ID: [id number]
[2019-07-23] MEDS ORDERED: Polyethylene Glycol 3350 17 GM Packet PO PRN (11:16)
--- NOTE | 2019-07-23 12:26 | PDOC.HOSPP ---
- Subjective Encounter Date: 07/23/19 Encounter Time: 08:20 Subjective: Pt seen for followup re: urinary retention. States he feels better after he had Herrera placed. - Objective Vital Signs & Weight: Vital Signs (12 hours) Temp Pulse Resp BP BP Pulse Ox 07/23/19 11:26 98.5 F 89 18 99/57 L 95 07/23/19 08:15 68 148/68 H 07/23/19 08:10 93 L 07/23/19 07:27 98.5 F 67 20 148/68 H 96 07/23/19 03:16 98.7 F 68 18 122/67 95 Weight Weight 170 lb I&O: 07/22/19 07/23/19 07/24/19 06:59 06:59 06:59 Intake Total 1075 2135 Output Total 1290 1640 10 Balance -215 495 -10 Result Diagrams: 07/22/19 05:37 07/22/19 05:37 Additional Labs: Labs and MARs reviewed by nj Hospitalist ROS - Review of Systems Respiratory: denies: cough, shortness of breath, SOB with excertion, pleuritic pain, wheezing Cardiovascular: denies: chest pain, palpitations, orthopnea, paroxysmal noc. dyspnea, edema, light headedness Genitourinary: reports: retention. denies: dysuria, frequency, incontinence, hematuria - Medication Medications: Active Medications Generic Name Dose Route Start Last Admin Trade Name Freq PRN Reason Stop Dose Admin Hydrocodone Bitart/Acetaminophen 1 tab 07/21/19 11:08 07/21/19 17:15 [place] 7.5/325 PO 1 tab Q4H PRN Administration Moderate Pain (4-6) Allopurinol 100 mg 07/22/19 09:00 07/23/19 08:15 Zyloprim PO 100 mg DAILY SUSANNA Administration Amlodipine Besylate 5 mg 07/22/19 09:00 07/23/19 08:15 Norvasc PO 5 mg DAILY SUSANNA Administration Aspirin 81 mg 07/22/19 09:00 07/23/19 08:15 Aspirin Chewable PO 81 mg DAILY SUSANNA Administration Carvedilol 25 mg 07/21/19 21:00 07/23/19 08:15 Coreg PO 25 mg BID SUSANNA Administration Digoxin 0.125 mg 07/22/19 09:00 07/23/19 08:15 Lanoxin PO 0.125 mg QAM SUSANNA Administration Gemfibrozil 600 mg 07/21/19 21:00 07/23/19 08:15 Lopid PO 600 mg BID SUSANNA Administration Sodium Chloride 1,000 mls @ 75 mls/hr 07/21/19 11:15 07/23/19 05:40 Normal Saline 0.9% IV 1,000 mls .[id number] SUSANNA Administration Losartan Potassium 100 mg 07/22/19 09:00 07/23/19 08:14 Cozaar PO 100 mg DAILY SUSANNA Administration Metformin HCl 500 mg 07/21/19 17:00 07/23/19 08:15 Glucophage PO 500 mg BID-WM SUSANNA Administration Polyethylene Glycol 17 gm 07/23/19 11:16 07/23/19 11:37 Miralax PO 17 gm DAILY PRN Administration Constipation Promethazine HCl 12.5 mg 07/21/19 11:08 07/21/19 13:36 Phenergan PO 12.5 mg Q4H PRN Administration Nausea/Vomiting Scopolamine 1.5 mg 07/21/19 12:00 07/21/19 13:36 Transderm Scop TD 1.5 mg Q3D SUSANNA Administration Senna/Docusate Sodium 1 tab 07/22/19 09:00 07/23/19 08:15 Senokot S PO 1 tab BID SUSANNA Administration Sodium Chloride 10 ml 07/21/19 11:08 07/22/19 08:30 Flush - Normal Saline IVF 10 ml PRN PRN Administration Saline Flush Tamsulosin HCl 0.4 mg 07/22/19 06:00 07/23/19 05:40 Flomax PO 0.4 mg 0600 SUSANNA Administration Tizanidine HCl 4 mg 07/21/19 11:08 07/23/19 08:15 Zanaflex PO 4 mg Q6H PRN Administration Muscle Spasm Torsemide 20 mg 07/22/19 09:00 07/23/19 08:13 Demadex PO 20 mg DAILY SUSANNA Administration - Exam General Appearance: NAD Eye: anicteric sclera ENT: moist mucosa Neck: supple Heart: RRR Respiratory: CTAB, no rales Gastrointestinal: soft, non-tender Extremities: no clubbing Psychiatric: normal affect, normal behavior Hosp A/P - Plan Hosp A/P (1) Urinary retention Code(s): E78.5 - HYPERLIPIDEMIA, UNSPECIFIED (2) HTN (hypertension) Code(s): I10 - ESSENTIAL (PRIMARY) HYPERTENSION (3) CAD (coronary artery disease) Code(s): I25.10 - ATHSCL HEART DISEASE OF [place] CORONARY ARTERY W/O ANG PCTRS (4) S/P CABG (coronary artery bypass graft) Code(s): Z95.1 - PRESENCE OF AORTOCORONARY BYPASS GRAFT (5) Gout Code(s): M10.9 - GOUT, UNSPECIFIED (6) DM2 (diabetes mellitus, type 2) Qualifiers: Chronic kidney disease stage: stage 3 (moderate) (7) Dyslipidemia Code(s): E78.5 - HYPERLIPIDEMIA, UNSPECIFIED - Plan Continue Herrera, consult urology HTN controlled Continue Coreg/Amlodipine/Digoxin/Lopis/Olmesartan/Torsemide will continue metformin Pain management and DVT prophylaxis per neurosurgery DVT proph w/SCDs
--- NOTE | 2019-07-23 17:34 | CON ---
DATE OF CONSULTATION: 07/23/2019 CONSULTING PHYSICIAN: Fransisca Taylor. CONSULTED: Dr. Carvajal. REASON FOR CONSULTATION: Urinary retention. HISTORY OF PRESENT ILLNESS: Mr. Rogel is an 88-year-old white male, who was admitted to the hospital for L1 through L5 laminectomy with Dr. Downs. He underwent the surgery successfully on July 21. He has been admitted postoperatively. His catheter was removed, but the patient was unable to urinate adequately. He had a catheter replaced with approximately 500 mL of urine released. The catheter was then taken out, but the patient could not void again and then ended up with 600 mL in his bladder, at which time the catheter was put back in. He was started on Flomax and I have been consulted for further assistance. Of note, the patient normally sees Dr. Lane Barr for BPH. He does not normally take any medications for this. He states he is able to urinate on his own, although it is a little slow. He currently is not using much pain medication. He has not had a bowel movement in 3 days. He is getting up and walking, although he is scheduled for physical therapy as an inpatient at rehab after he is discharged from the hospital. ALLERGIES: PENICILLIN. HOME MEDICATIONS: 1. Clonazepam. 2. Metformin. 3. Clonidine. 4. Torsemide. 5. Olmesartan. 6. Plavix. 7. Carvedilol. 8. Aspirin. 9. Amlodipine. 10. Allopurinol. 11. Digoxin. 12. Gemfibrozil. Of note, the patient is also on Flomax here in the hospital. PAST MEDICAL HISTORY: 1. Coronary artery disease. 2. Diabetes. 3. Hypertension. PAST SURGICAL HISTORY: 1. Appendectomy. 2. CABG x5 vessels. 3. Lumbar disk surgery in the 70s. 4. Elbow surgery. 5. Rotator cuff repair. 6. Bilateral knee replacements. 7. Recent spine surgery with Dr. Downs. FAMILY HISTORY: Noncontributory. SOCIAL HISTORY: The patient is retired. He does not smoke. He denies alcohol or illicit drug abuse. REVIEW OF SYSTEMS: A 12-point review of systems is reviewed and negative other than what was commented on the HPI. PHYSICAL EXAMINATION: VITAL SIGNS: Temperature 98.5, pulse 68, respirations 20, blood pressure 148/68, saturation is 93% on room air. GENERAL: No apparent distress. Communicative and alert. Well nourished, well developed, appears stated age. HEENT: Normocephalic, atraumatic. Pupils are symmetric and round. Sclerae are nonicteric. Trachea midline. Moist mucous membranes. CARDIOVASCULAR: Regular rate and rhythm. Normal S1, S2. Symmetric pulses. CHEST: Nonlabored breathing and symmetric expansion. LUNGS: Clear anteriorly. ABDOMEN: Soft, nontender, and nondistended. Positive bowel sounds. : Herrera catheter in place, draining clear yellow urine secured with a StatLock. Testes are bilaterally descended. No scrotal edema. Prostate exam is deferred at this time. EXTREMITIES: No clubbing, cyanosis, or edema. MUSCULOSKELETAL: Full range of motion. No joint deformities or joint erythema noted. Bilateral knee scars noted. Back surgeries also recently performed with incision clean, dry, and intact. NEUROLOGIC: Cranial nerves 2 through 12 grossly intact. No focal or sensory motor deficits identified. SKIN: Warm, dry. No rashes. No lesions. Good turgor. EXTREMITIES: No clubbing, cyanosis, or edema. PSYCHIATRIC: Alert and oriented x3. Appropriate mood and affect. LABORATORY EVALUATION: Full set of labs are in the [facility] system, which I have reviewed. Of note, most recent labs demonstrate a white count of 10.8, hemoglobin 9.6. Creatinine of 1.4. Urinalysis is completely unremarkable except 4-6 hyaline casts. ASSESSMENT AND PLAN: An 88-year-old white male with postop urinary retention after spine surgery, which is relatively common secondary to the spinal inflammation. I would recommend continuing on the Flomax. The patient does need to have management of his constipation, which will improve his ability to void. Given that he had 2 relatively mild overdistention injuries at his advanced age, I would recommend keeping the Herrera catheter in for at least 2 to 3 days, at which point, the catheter could subsequently be removed for a void trial. This could be done while at rehab or at Dr. Lane Barr's office, who is his primary urologist. I would recommend the patient to keep the catheter in for now, stay on the Flomax, aggressively manage bowel movements, and ambulate with physical therapy. He will not need to follow up with me, but should follow up with Dr. Barr in the future to ensure that he is adequately voiding. Again, void trial can be done either at rehab or with Dr. Barr. I will sign off. Please call if there are any further questions. Job ID: [id number]
[2019-07-23] MEDS: HYDROcodone/Acetaminophen 7.5/325 mg Tablet PO PRN (20:40)
[2019-07-24] MEDS: Sodium Chloride 0.9% 1,000 ML IV SCH ×2 (05:27→20:34)
[2019-07-24] MEDS: Tamsulosin HCl 0.4 MG CAP PO SCH (05:40)
--- NOTE | 2019-07-24 06:56 | PRG ---
DATE OF SERVICE: 07/24/2019 I saw Mr. Rogel in his hospital room this morning. He is 3 days out from a long segment lumbar laminectomy. He began mobilization over the weekend , but with a walker, he can get to the commode, but he has not taken walks in the hallway. The maximum temperature I see recorded over the weekend is 99.9 degrees Fahrenheit. Other vital signs have been relatively stable and his neurological examination is likewise reassuring. If there is a bed in the inpatient rehabilitation facility, then I think, Mr. Rogel, would be a good candidate for that. He lives alone, and therefore, he needs to be safe for all his activities of daily living and independent before finally returning to his home. A few days to a week in inpatient rehabilitation facility, would go long way to achieving that goal. Job ID: [id number] MTDD
[2019-07-24] MEDS: Allopurinol 100 MG TAB PO SCH (08:39)
[2019-07-24] MEDS: Carvedilol 25 MG TAB PO SCH ×2 (08:39→20:50)
[2019-07-24] MEDS: Amlodipine 5 MG TAB PO SCH (08:39)
[2019-07-24] MEDS: Torsemide 20 MG TAB PO SCH (08:39)
[2019-07-24] MEDS: metFORMIN 500 MG TAB PO SCH ×2 (08:39→17:44)
[2019-07-24] MEDS: Digoxin 0.125 MG TAB PO SCH (08:40)
[2019-07-24] MEDS: Aspirin Chewable 81 MG TAB PO SCH (08:42)
[2019-07-24] MEDS: Senokot S 8.6-50 MG TAB PO SCH ×2 (08:42→20:50)
[2019-07-24] MEDS: Gemfibrozil 600 MG TAB PO SCH ×2 (08:42→20:50)
[2019-07-24] MEDS: Losartan 25 MG TAB PO SCH (08:42)
[2019-07-24] MEDS: Scopolamine 1.5 mg/72 hour Patch TD SCH (14:43)
--- NOTE | 2019-07-24 15:56 | PDOC.HOSPP ---
- Subjective Encounter Date: 07/24/19 Encounter Time: 08:40 Subjective: Pt seen for followup re: urinary retention. No abdo pain. - Objective Vital Signs & Weight: Vital Signs (12 hours) Temp Pulse Resp BP BP Pulse Ox 07/24/19 15:02 98.1 F 71 18 129/61 95 07/24/19 10:59 97.1 F L 71 20 129/66 92 L 07/24/19 08:40 72 07/24/19 08:39 71 151/72 H 07/24/19 07:36 98.2 F 71 16 151/72 H 92 L Weight Weight 170 lb I&O: 07/23/19 07/24/19 07/25/19 06:59 06:59 06:59 Intake Total 2135 3130 Output Total 1640 1360 Balance 495 1770 Result Diagrams: 07/22/19 05:37 07/22/19 05:37 Additional Labs: Labs and MARs reviewed by ca Hospitalist ROS - Review of Systems Cardiovascular: denies: chest pain, palpitations, orthopnea, paroxysmal noc. dyspnea, edema, light headedness Gastrointestinal: denies: nausea, vomiting, abdominal pain, diarrhea, constipation, melena, hematochezia - Medication Medications: Active Medications Generic Name Dose Route Start Last Admin Trade Name Freq PRN Reason Stop Dose Admin Hydrocodone Bitart/Acetaminophen 1 tab 07/21/19 11:08 07/23/19 20:40 [place] 7.5/325 PO 1 tab Q4H PRN Administration Moderate Pain (4-6) Allopurinol 100 mg 07/22/19 09:00 07/24/19 08:39 Zyloprim PO 100 mg DAILY SUSANNA Administration Amlodipine Besylate 5 mg 07/22/19 09:00 07/24/19 08:39 Norvasc PO 5 mg DAILY SUSANNA Administration Aspirin 81 mg 07/22/19 09:00 07/24/19 08:42 Aspirin Chewable PO 81 mg DAILY SUSANNA Administration Carvedilol 25 mg 07/21/19 21:00 07/24/19 08:39 Coreg PO 25 mg BID SUSANNA Administration Digoxin 0.125 mg 07/22/19 09:00 07/24/19 08:40 Lanoxin PO 0.125 mg QAM SUSANNA Administration Gemfibrozil 600 mg 07/21/19 21:00 07/24/19 08:42 Lopid PO 600 mg BID SUSANNA Administration Sodium Chloride 1,000 mls @ 75 mls/hr 07/21/19 11:15 07/24/19 05:27 Normal Saline 0.9% IV Not Given .[id number] SUSANNA Losartan Potassium 100 mg 07/22/19 09:00 07/24/19 08:42 Cozaar PO 100 mg DAILY SUSANNA Administration Metformin HCl 500 mg 07/21/19 17:00 07/24/19 08:39 Glucophage PO 500 mg BID-WM SUSANNA Administration Polyethylene Glycol 17 gm 07/23/19 11:16 07/23/19 11:37 Miralax PO 17 gm DAILY PRN Administration Constipation Promethazine HCl 12.5 mg 07/21/19 11:08 07/21/19 13:36 Phenergan PO 12.5 mg Q4H PRN Administration Nausea/Vomiting Scopolamine 1.5 mg 07/21/19 12:00 07/24/19 14:43 Transderm Scop TD 1.5 mg Q3D SUSANNA Administration Senna/Docusate Sodium 1 tab 07/22/19 09:00 07/24/19 08:42 Senokot S PO 1 tab BID SUSANNA Administration Sodium Chloride 10 ml 07/21/19 11:08 07/22/19 08:30 Flush - Normal Saline IVF 10 ml PRN PRN Administration Saline Flush Tamsulosin HCl 0.4 mg 07/22/19 06:00 07/24/19 05:40 Flomax PO 0.4 mg 0600 SUSANNA Administration Tizanidine HCl 4 mg 07/21/19 11:08 07/23/19 08:15 Zanaflex PO 4 mg Q6H PRN Administration Muscle Spasm Torsemide 20 mg 07/22/19 09:00 07/24/19 08:39 Demadex PO 20 mg DAILY SUSANNA Administration - Exam General Appearance: awake alert Eye: anicteric sclera ENT: moist mucosa Neck: supple Heart: RRR Respiratory: no wheezes Gastrointestinal: soft, non-tender Skin: no rashes Musculoskeletal: no muscle wasting Psychiatric: normal affect, normal behavior Hosp A/P - Plan Hosp A/P (1) Urinary retention Code(s): E78.5 - HYPERLIPIDEMIA, UNSPECIFIED (2) HTN (hypertension) Code(s): I10 - ESSENTIAL (PRIMARY) HYPERTENSION (3) CAD (coronary artery disease) Code(s): I25.10 - ATHSCL HEART DISEASE OF [place] CORONARY ARTERY W/O ANG PCTRS (4) S/P CABG (coronary artery bypass graft) Code(s): Z95.1 - PRESENCE OF AORTOCORONARY BYPASS GRAFT (5) Gout Code(s): M10.9 - GOUT, UNSPECIFIED (6) DM2 (diabetes mellitus, type 2) Qualifiers: Chronic kidney disease stage: stage 3 (moderate) (7) Dyslipidemia Code(s): E78.5 - HYPERLIPIDEMIA, UNSPECIFIED - Plan Appreciate urology service input. Continue Miralax, start Dulcolax. HTN controlled Continue metformin DVT proph w/SCDs
[2019-07-24] MEDS: HYDROcodone/Acetaminophen 7.5/325 mg Tablet PO PRN (16:14)
[2019-07-24] MEDS ORDERED: Bisacodyl 5 MG TAB PO SCH (16:15)
[2019-07-25] MEDS: Tamsulosin HCl 0.4 MG CAP PO SCH (05:28)
[2019-07-25] MEDS: Bisacodyl 5 MG TAB PO PRN ×2 (05:29→08:25)
--- NOTE | 2019-07-25 07:09 | PRG ---
DATE OF SERVICE: 07/25/2019 I saw John Rogel in his hospital room this morning. He is 4 days out from long segment lumbar laminectomy. He is making nice progress with mobilization. A Herrera catheter had to be replaced last night. He is anticipating continued improvement in inpatient rehabilitation. I reviewed vital signs and I do not see a fever recorded overnight. Blood pressures have been in the 150s. Lower extremity function is quite good. Mr. Rogel is ready for transfer to inpatient rehabilitation. Followup arrangements have been made in our office. We went over home going activity restrictions and wound care. Job ID: [id number]
[2019-07-25] MEDS: Amlodipine 5 MG TAB PO SCH (08:24)
[2019-07-25] MEDS: Allopurinol 100 MG TAB PO SCH (08:24)
[2019-07-25] MEDS: Gemfibrozil 600 MG TAB PO SCH (08:24)
[2019-07-25] MEDS: Aspirin Chewable 81 MG TAB PO SCH (08:24)
[2019-07-25] MEDS: Torsemide 20 MG TAB PO SCH (08:24)
[2019-07-25] MEDS: metFORMIN 500 MG TAB PO SCH (08:24)
[2019-07-25] MEDS: Carvedilol 25 MG TAB PO SCH (08:24)
[2019-07-25] MEDS: Senokot S 8.6-50 MG TAB PO SCH (08:25)
[2019-07-25] MEDS: Digoxin 0.125 MG TAB PO SCH (08:26)
[2019-07-25] MEDS: Losartan 25 MG TAB PO SCH (08:26)
[2019-07-25] MEDS: Sodium Chloride 0.9% 1,000 ML IV SCH (08:26)
[2019-07-25] MEDS ORDERED: Magnesium Citrate 300 ML BOT PO SCH (10:45)
[2019-07-25 12:07] VITALS: BP 155/69; TEMP 98.4
== END 2019-07-25 14:22 | DRG 517 ==
LOC: SDC 05:40 → SURG B 12:52 → SDC 07-23 22:12 → SURG B 07-23 22:12
PROVIDERS: ADMIT Neurological Surgery; ATTEND Neurological Surgery
PROC: 01NB0ZZ Release Lumbar Nerve, Open Approach (ICD-10-PCS; principal; 2019-07-21)
DX: M48.062 Spinal stenosis, lumbar region with neurogenic claudication (principal); I25.10 Atherosclerotic heart disease of native coronary artery without angina pectoris; M10.9 Gout, unspecified; N18.3 Chronic kidney disease, stage 3 (moderate); I12.9 Hypertensive chronic kidney disease with stage 1 through stage 4 chronic kidney disease, or unspecified chronic kidney disease; E11.22 Type 2 diabetes mellitus with diabetic chronic kidney disease; N40.0 Benign prostatic hyperplasia without lower urinary tract symptoms; M41.86 Other forms of scoliosis, lumbar region; M51.16 Intervertebral disc disorders with radiculopathy, lumbar region; R33.9 Retention of urine, unspecified; Z95.1 Presence of aortocoronary bypass graft; Z90.49 Acquired absence of other specified parts of digestive tract; Z88.0 Allergy status to penicillin; Z88.8 Allergy status to other drugs, medicaments and biological substances
CPT/HCPCS: 36415; 36416; 76000; 80048; 81001; 83735; 85025; 90471; 90662; G0008; J1956; J3010; J3370; J3490; P9045; Q0169; S0020

== ENCOUNTER 2019-08-15 15:12 | Outpatient (CLI) | payer MEDICARE | END 2019-08-15 15:13 | disposition home or self-care (01) | LOC: CTENTCT 15:12 | PROVIDERS: ATTEND Otolaryngology Plastic Surgery within the Head & Neck | DX: J32.8 Other chronic sinusitis (principal) | CPT/HCPCS: 70486 ==

== ENCOUNTER 2019-08-23 06:57 | Inpatient (IN) | payer MEDICARE ==
[2019-08-23] MEDS ORDERED: Fentanyl 250 MCG/5 ML VIAL ONE (08:07)
[2019-08-23 09:05] LABS: Hemoglobin 10.6 g/dL (14.0-18.0)
[2019-08-23] MEDS ORDERED: AFRIN NASAL MIST 15 ML BOT ONE ×3 (09:30→11:53)
[2019-08-23 09:36] LABS: Anion Gap 11 mmol/L (10-20); BUN (Urea Nitrogen) 29 mg/dL (8.4-25.7); Calc. Creatinine Clearance 50 mL/min (70-130); Calcium 9.4 mg/dL (7.8-10.44); Carbon Dioxide 25 mmol/L (23-31); Chloride 106 mmol/L (98-107); Estimated GFR-MDRD 61; Glucose 129 mg/dL (83-110); Potassium 4.7 mmol/L (3.5-5.1); Sodium 137 mmol/L (136-145)
[2019-08-23] MEDS ORDERED: Lidocaine 2% Jelly 5 ML TUBE ONE (10:01)
[2019-08-23] MEDS ORDERED: Sodium Bicarb 50 MEQ/50 ML Abboject 8.4% SYRINGE ONE (10:01)
[2019-08-23] MEDS ORDERED: Lidocaine 1% w/Epinephrine 1:100K 20 ML VIAL ONE ×2 (10:08→11:53)
[2019-08-23] MEDS ORDERED: Bacitracin Zinc Ointment 30 gm TUBE ONE (11:15)
[2019-08-23] MEDS ORDERED: Tetracaine HCl/PF 1% 20 MG/2 ML AMP ONE (12:01)
[2019-08-23] MEDS ORDERED: methylPREDNISolone Sod Succ 40 MG VIAL ONE (12:04)
[2019-08-23] MEDS ORDERED: methylPREDNISolone Sod Succ/PF 125 MG/2 ML VIAL ONE (12:14)
[2019-08-23] MEDS ORDERED: Phenylephrine HCL 10 MG/ML VIAL ONE (13:07)
[2019-08-23] MEDS ORDERED: EPHEDRINE 25 MG/5 ML SYRINGE ONE ×3 (13:09→13:15)
[2019-08-23] MEDS ORDERED: Glycopyrrolate 0.2 MG/ML 5 ML SYRINGE ONE (13:12)
[2019-08-23] MEDS ORDERED: Ondansetron PF 4 MG/2 ML Vial ONE (13:12)
[2019-08-23] MEDS ORDERED: PROPOFOL 200 MG/20 ML VIAL ONE ×2 (13:12→13:15)
[2019-08-23] MEDS ORDERED: Lidocaine 1% PF 5 ML VIAL ONE ×2 (13:12→13:15)
[2019-08-23] MEDS ORDERED: Rocuronium Bromide 10 MG/ML (10ML VIAL) ONE ×2 (13:12→13:15)
[2019-08-23] MEDS ORDERED: Dexamethasone 20 MG/5 ML VIAL ONE (13:12)
[2019-08-23] MEDS ORDERED: HYDROcodone/Acetaminophen 5/325 mg Tablet PO PRN ×2 (13:23→13:24)
[2019-08-23] MEDS ORDERED: Ondansetron PF 4 MG/2 ML Vial IVP PRN (13:23)
--- NOTE | 2019-08-23 13:29 | RAD ---
EXAM: Single view of the chest HISTORY: Postop chest x-ray COMPARISON: 04/11/2009 FINDINGS: Single view of the chest shows a normal sized cardiomediastinal silhouette. There is eleva tion the right hemidiaphragm. No pneumothorax is seen. Atherosclerotic calcifications are seen in the aorta. There is no evidence of consolidation, mass, or pleural effusion. The bones are unremarkab le. IMPRESSION: No evidence of acute cardiopulmonary disease
[2019-08-23] MEDS ORDERED: Sodium Chloride 0.45% 1,000 ML IV SCH (13:30)
[2019-08-23 13:52] LABS: #Basophils 0.1 thou/uL (0.0-0.2); #Eosinphils 0.3 thou/uL (0.0-0.7); #Lymphocytes 1.4 thou/uL (1.20-3.40); #Monocytes 0.2 thou/uL (0.11-0.59); #Neutrophils 10.4 thou/uL (1.40-6.50); %Basophils 0.9 % (0.0-1.0); %Eosinophils 2.2 % (0.0-10.0); %Lymphocytes 11.5 % (21.0-51.0); %Monocytes 1.6 % (0.0-10.0); %Neutrophils 83.8 % (42.0-75.0); Hemoglobin 9.4 g/dL (14.0-18.0); Mean Corpuscular HGB CONC 33.1 g/dL (32.0-36.0); Mean Corpuscular Hemoglobin 32.3 pg (27.0-31.0); Mean Corpuscular Volume 97.6 fL (78.0-98.0); Mean Platelet Volume 7.4 fL (7.4-10.4); Platelet Count 291 thou/uL (130-400); RBC Distribution Width 12.6 % (11.5-14.5); Red Blood Cell (RBC) Count 2.92 mill/uL (4.70-6.10); White Blood Cell (WBC) Count 12.4 thou/uL (4.8-10.8)
[2019-08-23 14:09] LABS: Anion Gap 11 mmol/L (10-20); BUN (Urea Nitrogen) 29 mg/dL (8.4-25.7); Calc. Creatinine Clearance 56 mL/min (70-130); Calcium 8.6 mg/dL (7.8-10.44); Carbon Dioxide 24 mmol/L (23-31); Chloride 107 mmol/L (98-107); Estimated GFR-MDRD 70; Glucose 197 mg/dL (83-110); Potassium 5.4 mmol/L (3.5-5.1); Sodium 137 mmol/L (136-145)
[2019-08-23] MEDS ORDERED: Fentanyl 100 MCG/2 ML VIAL ONE ×2 (14:25→17:41)
[2019-08-23 16:26] VITALS: BMI 25.5
[2019-08-23] MEDS: Clindamycin/D5W 900 MG in Premix Bag 1 BAG IVPB SCH ×2 (16:48→22:34)
[2019-08-23] MEDS ORDERED: Midazolam HCl 2 mg/2 ml Vial ONE (17:41)
[2019-08-23 17:43] LABS: Actual Bicarbonate (HCO3a) 12.2 mEq/L (22-28); Base Excess (BEa) -12.7 mEq/L (-2.0 to +3.0); Calcium, Ionized 1.02 mmol/L (1.12-1.30); Carboxyhemoglobin (COHb) 1.4 gm% (0.0-3.0); Hemoglobin (Hb) 6.6 g/dL (14.0-18.0); O2 Tension (PaO2) 139.7 mmHg (> 60.0); Potassium - ABG Lab 7.32 mmol/L (3.70-5.30); pH, Arterial 7.32 (7.35-7.45)
[2019-08-23 17:52] LABS: CO2 Tension 24.4 mmHg (35.0-45.0); Puncture Site LFA
--- NOTE | 2019-08-23 18:05 | RAD ---
EXAM: CHEST ONE VIEW HISTORY: Code balloon. Post intubation. COMPARISON: 08/23/2019 at 1257 hours. FINDINGS: Endotracheal tube is now noted in place with tip overlying the T3-4 level and above the level of the emilia. Cardiac silhouette is magnified by projection. Pulmonary vasculature is within normal limits. There is stable elevation of the right hemidiaphragm with mild volume loss at the medial righ t lung base. No pneumothorax or pleural effusion is identified on this exam. Aortic valve replacement is seen. Surgical clips overlie the right axillary region. Vascular calcification are aga in seen in thoracic aorta. No other interval change. IMPRESSION: 1. Interval placement of endotracheal tube with tip above the level of the emilia. Chest is otherwise stable.
[2019-08-23] MEDS ORDERED: Propofol 1,000 MG/100 ML VIAL IV ONE (18:50)
[2019-08-23] MEDS ORDERED: DISCONTINUE PREVIOUS NARCOTIC PAIN MEDICATIONS AND BENZODIAZEPINES FS SCH (19:15)
[2019-08-23] MEDS ORDERED: Morphine 2 MG/ML SYRINGE SLOW IVP PRN (19:15)
[2019-08-23] MEDS ORDERED: Sodium Bicarb 50 MEQ/50 ML VIAL IVP SCH (19:15)
[2019-08-23] MEDS ORDERED: Fentanyl BOLUS 250 ML IVPB PRN (19:15)
[2019-08-23] MEDS ORDERED: Lorazepam 2 MG/ML VIAL SLOW IVP PRN (19:15)
[2019-08-23] MEDS ORDERED: Propofol BOLUS 1,000 MG/100 ML VIAL IV PRN (19:15)
[2019-08-23] MEDS ORDERED: fentaNYL Citrate/PF 2,000 MCG in Sodium Chloride 0.9% 60 ML IV SCH (19:15)
[2019-08-23] MEDS ORDERED: Sodium Chloride 0.9% 2,000 ML IV SCH (19:15)
[2019-08-23] MEDS ORDERED: Propofol 1,000 MG/100 ML VIAL IV PRN (19:15)
[2019-08-23 19:16] LABS: Actual Bicarbonate (HCO3a) 19.5 mEq/L (22-28); Base Excess (BEa) -6.7 mEq/L (-2.0 to +3.0); CO2 Tension 42.8 mmHg (35.0-45.0); Calcium, Ionized 1.01 mmol/L (1.12-1.30); Carboxyhemoglobin (COHb) 1.2 gm% (0.0-3.0); Hemoglobin (Hb) 5.4 g/dL (14.0-18.0); O2 Tension (PaO2) 493.3 mmHg (> 60.0); Potassium - ABG Lab 5.56 mmol/L (3.70-5.30); pH, Arterial 7.28 (7.35-7.45)
[2019-08-23 19:42] LABS: Puncture Site LRA
[2019-08-23 19:49] LABS: #Eosinphils 0.1 thou/uL (0.0-0.7); #Lymphocytes 3.8 thou/uL (1.20-3.40); #Monocytes 0.3 thou/uL (0.11-0.59); #Neutrophils 12.9 thou/uL (1.40-6.50); %Basophils 0.1 % (0.0-1.0); %Eosinophils 0.5 % (0.0-10.0); %Lymphocytes 22.3 % (21.0-51.0); %Monocytes 1.6 % (0.0-10.0); %Neutrophils 75.4 % (42.0-75.0); Mean Corpuscular HGB CONC 32.6 g/dL (32.0-36.0); Mean Corpuscular Volume 98.1 fL (78.0-98.0); Mean Platelet Volume 8.3 fL (7.4-10.4); Platelet Count 241 thou/uL (130-400); RBC Distribution Width 12.5 % (11.5-14.5); Red Blood Cell (RBC) Count 2.19 mill/uL (4.70-6.10); White Blood Cell (WBC) Count 17.1 thou/uL (4.8-10.8)
[2019-08-23 19:55] LABS: Anion Gap 22 mmol/L (10-20); BUN (Urea Nitrogen) 33 mg/dL (8.4-25.7); Calc. Creatinine Clearance 50 mL/min (70-130); Calcium 7.8 mg/dL (7.8-10.44); Carbon Dioxide 14 mmol/L (23-31); Chloride 108 mmol/L (98-107); Estimated GFR-MDRD 60; Glucose 194 mg/dL (83-110); Sodium 137 mmol/L (136-145)
[2019-08-23 20:06] LABS: Potassium 6.6 mmol/L (3.5-5.1)
[2019-08-23 20:35] LABS: Band 12 % (5-11); Lymphocytes 11 % (21-51); MDiff Complete? YES; Monocytes 3 % (0-10); Neutrophil 74 % (42-75)
[2019-08-23 20:36] LABS: Ovalocytes SLIGHT = 2-5 cells (100X) (0-1/hpf); Platelet Morphology Comment Appears Adequate; Polychromasia SLIGHT = 2-3 cells (100X) (0-2/hpf)
[2019-08-23] MEDS: Sodium Chloride 0.45% 1,000 ML IV SCH (20:50)
[2019-08-23] MEDS ORDERED: Calcium Chloride 13.6 MEQ in Sodium Chloride 0.9% 100 ML IVPB SCH (21:00)
[2019-08-23] MEDS ORDERED: methylPREDNISolone Sod Succ/PF 125 MG/2 ML VIAL IVP SCH (21:00)
[2019-08-23 21:09] LABS: INR-International Normal Ratio 1.4; Prothrombin Time 16.8 SEC (12.0-14.7)
[2019-08-23] MEDS ORDERED: Sodium Chloride 0.9% (PF) 10 ML VIAL FS PRN (21:18)
[2019-08-23] MEDS ORDERED: Pantoprazole 40 MG VIAL IVP SCH (21:30)
[2019-08-23] MEDS ORDERED: Albuterol Sulfate 2.5 mg/3 ml Neb ONE (21:59)
--- NOTE | 2019-08-24 01:43 | CON ---
DATE OF CONSULTATION: 08/23/2019 SERVICE: Pulmonary Medicine. REASON FOR CONSULTATION: ICU patient. HISTORY OF PRESENT ILLNESS: The patient is an 88-year-old white male with past medical history significant for essentially nothing. He was in his usual state of health until he underwent an elective procedure. Postoperatively, he has significant bleeding event. His hemoglobins dropped off significantly over several hours. Unfortunately, he experienced a brief PEA arrest. He briefly got chest compressions and 3 L of fluid. He was tucked into the ICU. Thankfully, he has had good neurologic recovery. He cannot provide any additional elements of the history as he is currently requiring a little bit of sedation he is on the mechanical ventilator. He denies any current fevers or chills. Prior to this event, he did not have any known lung problems. Laboratories were reviewed and multiple adjustments were made. PAST MEDICAL HISTORY: 1. Coronary artery disease. 2. Type 2 diabetes mellitus. 3. Hypertension. PAST SURGICAL HISTORY: 1. Appendectomy. 2. Coronary bypass graft x5 vessels. 3. Lumbar surgery in the 1970s. 4. Laminectomy, postop 1 month. 5. Elbow surgery. 6. Rotator cuff repair. 7. Bilateral knee replacements. 8. ENT procedure, postop day #0. FAMILY HISTORY: Noncontributory. SOCIAL HISTORY: Negative for alcohol, tobacco, or illicit drug use. ALLERGIES: PENICILLIN. MEDICATIONS: List of inpatient medications was reviewed. Multiple small updates were made. We will put him on a sedation protocol and a fluoroquinolone was initiated. IV fluids were dropped slightly, and the patient was given some scheduled nebulized medications and steroids, Kayexalate and calcium. REVIEW OF SYSTEMS: This cannot be obtained as the patient is currently intubated and sedated. PHYSICAL EXAMINATION: VITAL SIGNS: Afebrile, pulse 62, blood pressure 99/47, respirations 16, saturation 97%, currently on 27% FiO2 and a PEEP of 5. GENERAL: The patient is awake and alert, in no apparent distress. LUNGS: Very good air entry. There is a prolonged expiratory phase on the ventilator waveforms. No overt wheezing is appreciated. No rhonchi noted. No crackles noted. HEART: Normal rate, regular. ABDOMEN: Soft, nontender, nondistended. Bowel sounds are positive. MUSCULOSKELETAL: No cyanosis or clubbing. EXTREMITIES: There is no pitting in the bilateral lower extremities. NEUROLOGIC: Grossly nonfocal. He is moving all 4 extremities. He is following commands. LABORATORY DATA: WBC 7.1, hemoglobin 7.0 and downtrending, platelets 241,000. INR 1.0 on the 2019. PH 7.28, pCO2 42, pO2 493. Potassium up trending to 6.6, bicarb 14, anion gap 22. Creatinine 1.15. Basic metabolic profile is otherwise unremarkable. Magnesium 1.8. Urinalysis is unremarkable. IMAGING: Chest x-ray demonstrates interval placement of an endotracheal tube. Cardiac silhouette is generous, though I do not see any overt consolidating lesions, or pulmonary edema present. There is an enteric catheter coursing midline below the level of the diaphragm. ASSESSMENT: 1. Acute blood loss anemia. 2. Hyperkalemia. 3. Pulseless electrical activity arrest. 4. Hemorrhagic shock, resolving. 5. Aspiration pneumonitis, suspected. DISCUSSION AND PLAN: The patient does not have a lung history, but there is pretty significant prolongation of the expiratory phase. We will put him on nebulized medications, which may actually help out with his potassium issue. We will give a dose of Kayexalate, and I will give him a dose of calcium. Magnesium and phosphorus will be checked with tomorrow morning's laboratories. A brief course of steroids will be initiated and I will also put him on the Levaquin to round out our coverage of aspiration related organisms. We will continue the clindamycin for the anaerobic coverage. Pulmonary/Critical Care will continue to follow very closely. Provided that his hemoglobin stabilizes, he will likely be prepared for extubation 1st thing in the morning. Multiple adjustments to the ventilator have been performed. Since the patient is waking up nicely, and his drive to breathe is good, we will turn a touch more work of breathing over to the patient. CRITICAL CARE TIME: 30 minutes, this includes dictation. Job ID: [id number] [facility]
--- NOTE | 2019-08-24 02:25 | OP ---
DATE OF PROCEDURE: 08/23/2019 PREOPERATIVE DIAGNOSIS: Left orbital hematoma. POSTOPERATIVE DIAGNOSIS: Left orbital hematoma. PROCEDURE PERFORMED: Left endoscopic medial orbital wall decompression. ESTIMATED BLOOD LOSS: 50 mL. COMPLICATIONS: None. ANESTHESIA: GETA. BRIEF HISTORY: This is a gentleman who just previously underwent endoscopic sinus surgery and was noted to have herniation of orbital fat with a bleeding vessel in the orbital fat, which was previously controlled. The patient was noted to have mild amount of proptosis and intraoperative consultation with Dr. Cunha was obtained while the patient was returned to the operating room. Intraoperatively, Dr. Cunha checked the intra-ocular pressures, which were noted to be within normal limits and also extraocular muscle movements were noted to be intact and it was recommended by Dr. Cunha that the patient undergo a medial orbital wall decompression. There was no indication for a lateral canthotomy at this time per his evaluation. DESCRIPTION OF PROCEDURE: The patient was placed on the operating room table supine. General endotracheal anesthesia was obtained. The 0-degree endoscope was then advanced into the right nasal cavity, which was noted to be intact with no bleeding. The left nasal cavity was then examined. Any residual NasoPore packing was removed from this area. There was a slight amount of oozing from the herniated medial orbital contents and bipolar electrocautery was again used to control this bleeding in this area. Following this, a 2 cm2 area of medial orbital wall bone was then gently removed using straight Blakesley forceps and the periorbita was then incised in a linear fashion with a sickle knife and ball ended probe allowing more overall fat to herniate into the ethmoidal sinus. A small amount of NasoPore packing was placed over this area to protect the orbital fat, but still allow for herniation and a Merocel pack was then placed in the inferior aspect of the nasal cavity and was soaked with Afrin. This medial orbital decompression allowed for the globe to be much softer. The patient was taken to recovery room in stable condition. It was noted in the recovery room the patient experienced an episode of bradycardia and Anesthesia corrected this with a dose of Delta-Synephrine and the patient was observed in the recovery room for approximately 2 hours and the nasal pack was then removed from the left inferior nasal cavity. There was no anterior bleeding or posterior bleeding noted. The patient was awake and oriented x3. He was having no eye pain and his visual acuity was still diminished, but improved from before. Job ID: [id number]
--- NOTE | 2019-08-24 02:53 | PRG ---
DATE OF SERVICE: TIME SEEN: Approximately 5 p.m. BRIEF HISTORY: I was called by the telemetry nurses to be informed that the patient was undergoing a code secondary to asystole. However after the patient had been transferred to the ICU, he was intubated by Dr. Lane De La Rosa and CPR were performed. His rhythm was restored following a code document after three doses of epinephrine and chest compressions. He currently is in the ICU and hemodynamically stable. The patient previously had a bradycardia event in the immediate postoperative period in the recovery room. At that time, CBC, basic metabolic panel and chest x-ray was performed to rule out any flash pulmonary edema or blood loss. Hemoglobin was 9.5 at that time. His current hemoglobin was 6.5 after the code. the patient did have some blood in the posterior pharynx, which was suctioned prior to intubation. We are still awaiting the telemetry records to observe his continuous pulse oximetry numbers as well as his heart rhythm and rate. He will receive 2 units of packed red blood cells for now and when more hemodynamically stable, we will perform a CT of the head to rule out any intracranial bleeding that may possibly have contributed to this. Job ID: [id number]
--- NOTE | 2019-08-24 03:06 | OP ---
DATE OF PROCEDURE: 08/23/2019 PREOPERATIVE DIAGNOSES: 1. Chronic rhinosinusitis. 2. Allergic fungal sinusitis. POSTOPERATIVE DIAGNOSES: 1. Chronic rhinosinusitis. 2. Allergic fungal sinusitis. PROCEDURES: 1. Bilateral endoscopic sinus surgery, total ethmoidectomies. 2. Bilateral endoscopic sinus surgery, frontal sinusotomies. 3. Bilateral endoscopic sinus surgery, maxillary antrostomies. 4. Right endoscopic sinus surgery, sphenoidotomy with removal of tissue. 5. Left endoscopic sinus surgery, sphenoidotomy. 6. LandSverveX image-guided intraoperative cranial base navigational surgery. ESTIMATED BLOOD LOSS: 50 mL. COMPLICATIONS: Left orbital fat herniation. ANESTHESIA: GETA. DESCRIPTION OF PROCEDURE: The patient was taken to the operating room and placed supine on the table. General endotracheal anesthesia was obtained by the Anesthesia Staff. The Fitcline image-guided system was set up and was calibrated and was noted to be within 1 mm of accuracy. Following this, Afrin pledgets were removed from the nasal cavity. 1% lidocaine with 1:100,000 epinephrine was injected into the middle turbinates and lateral nasal wall. Following this, the middle turbinates were gently medialized with a White elevator. The uncinate process was then anteriorly fractured using a ball-ended probe bilaterally. The uncinate process was then removed using the 0-degree microdebrider and up-biting Blakesley forceps bilaterally. The natural maxillary sinus ostia was then visualized and was widened using the 40-degree microdebrider blade and straight Blakesley forceps. Following this, the ethmoidal bulla was identified bilaterally and was punctured on its medial and inferior aspect using the 0-degree microdebrider. Following this, ethmoidal bulla was removed using the microdebrider and up-biting Blakesley forceps. Following this, the grand lamella was identified and was punctured into the posterior ethmoidal cells, working from posterior to anterior keeping the cribriform plate in view. Ethmoidal cells were opened. Following this, the image guided instruments were used to identify the anterior sphenoid sinus wall and a sphenoidotomy was created bilaterally using a Alvarez tip suction. The sphenoidotomies were then widened in a medial and inferior direction using the 0-degree microdebrider bilaterally. The right sphenoid sinus was impacted with fungal debris and mucin, this was removed using a straight suction and straight Blakesley forceps. Following this, the 45-degree endoscope along with a 40-degree microdebrider blade was used to further open the anterior ethmoidal cells and expose the frontal sinus ostia. On the left anterior ethmoidal cell, there was a small area of exposed left orbital fat. The fat was gently repositioned with a White elevator. There is a small amount of bleeding that was identified from the orbital fat. It did not appear to be the anterior ethmoidal artery, only from a small vessel within the orbital fat. A bipolar electrocautery was used to cauterize this area. There was no active bleeding. Following this, the frontal sinus ostia was then widened using the curved microdebrider bilaterally. Following this NasoPore packing was placed within the middle meatus area and the procedure was completed. Upon extubation, it was noted that the patient's left eye was slightly tense. The packing was removed from the left ethmoidal area, which seemed to help with the pressures on the left eye. The patient was extubated and taken to the recovery room. In the recovery room, the patient's vision was noted to be diminished on this left side. Therefore, an intraoperative consult with Dr. Randolph and Ophthalmology was obtained. The patient was then returned to the operating room for endoscopic orbital decompression. Job ID: [id number]
[2019-08-24 04:20] LABS: #Lymphocytes 0.7 thou/uL (1.20-3.40); #Monocytes 0.7 thou/uL (0.11-0.59); #Neutrophils 15.6 thou/uL (1.40-6.50); %Basophils 0.1 % (0.0-1.0); %Eosinophils 0.2 % (0.0-10.0); %Lymphocytes 4.3 % (21.0-51.0); %Neutrophils 91.4 % (42.0-75.0); Hemoglobin 7.4 g/dL (14.0-18.0); Mean Corpuscular HGB CONC 33.3 g/dL (32.0-36.0); Mean Corpuscular Hemoglobin 32.2 pg (27.0-31.0); Mean Corpuscular Volume 96.6 fL (78.0-98.0); Platelet Count 215 thou/uL (130-400); RBC Distribution Width 12.8 % (11.5-14.5); Red Blood Cell (RBC) Count 2.29 mill/uL (4.70-6.10); White Blood Cell (WBC) Count 17.1 thou/uL (4.8-10.8)
[2019-08-24 04:39] LABS: Anion Gap 10 mmol/L (10-20); BUN (Urea Nitrogen) 41 mg/dL (8.4-25.7); Calc. Creatinine Clearance 48 mL/min (70-130); Calcium 7.8 mg/dL (7.8-10.44); Carbon Dioxide 24 mmol/L (23-31); Chloride 107 mmol/L (98-107); Estimated GFR-MDRD 57; Glucose 194 mg/dL (83-110); Phosphorus 4.7 mg/dL (2.3-4.7); Potassium 5.4 mmol/L (3.5-5.1); Sodium 136 mmol/L (136-145)
[2019-08-24] MEDS: Clindamycin/D5W 900 MG in Premix Bag 1 BAG IVPB SCH ×3 (05:31→21:50)
[2019-08-24 08:39] LABS: Actual Bicarbonate (HCO3a) 19.5 mEq/L (22-28); Analyzer IN Cardio OR; Base Excess (BEa) -5.2 mEq/L (-2.0 to +3.0); Calcium, Ionized 1.09 mmol/L (1.12-1.30); Carboxyhemoglobin (COHb) 1.1 gm% (0.0-3.0); Hemoglobin (Hb) 7.3 g/dL (14.0-18.0); Potassium - ABG Lab 4.88 mmol/L (3.70-5.30); pH, Arterial 7.38 (7.35-7.45)
[2019-08-24] MEDS: Pantoprazole 40 MG VIAL IVP SCH (08:40)
[2019-08-24] MEDS: predniSONE 20 MG TAB PO SCH (08:40)
[2019-08-24] MEDS ORDERED: DC Sedation Protocol FS ONE (08:46)
--- NOTE | 2019-08-24 08:55 | PRG ---
DATE OF SERVICE: TIME SPENT: 35 minutes of critical care time. SUBJECTIVE: Mr. Rogel was brought to the ICU last night and had to be intubated because of an arrest while on the floor after surgery yesterday. He looks like he is back to baseline at this point. He is on minimal ventilator settings. OBJECTIVE: GENERAL: He is awake, alert, following commands. HEENT: Remarkable for ecchymosis around his left eye with periorbital swelling. He has a nasal tampon in his left nostril. He is intubated orally. NECK: No adenopathy or JVD. LUNGS: Clear anteriorly. CARDIOVASCULAR: S1 and S2. Regular. ABDOMEN: Soft, nontender to palpation. EXTREMITIES: No clubbing, cyanosis, or edema. LABORATORY DATA: ABG pending. Sodium 136, potassium 5.4, chloride 107, CO2 of 24, BUN 41, creatinine 1.2, glucose 194. White blood cell count is 17.1, hematocrit 22.2, and platelet count 215. Chest x-ray is pending. ASSESSMENT: 1. Acute respiratory failure, requiring mechanical ventilation. 2. Acute blood loss anemia. 3. Hyperkalemia. 4. Status post CPR. PLAN: 1. Given the patient lost blood yesterday, his H and H seem to be followed closely and he may require transfusion if he falls any further. 2. If his blood gas looks appropriate, we will proceed with extubation. 3. He is being empirically covered with antibiotics for presumed aspiration. 4. We will check an x-ray to make sure the right diaphragm is okay as it looked elevated on yesterday's film. Job ID: [id number]
[2019-08-24 08:57] LABS: Puncture Site LRA
[2019-08-24] MEDS ORDERED: Losartan 25 MG TAB PO SCH (09:00)
--- NOTE | 2019-08-24 09:07 | RAD ---
SINGLE VIEW OF THE CHEST: COMPARISON: 08/23/2019. HISTORY: Right diaphragm elevation. FINDINGS: A single view of the chest shows a normal-size cardiomediastinal silhouette. The endotracheal tube i s unchanged in position. There is an NG tube with its tip in the stomach. There is no evidence of c onsolidation, mass, or pleural effusion. There is stable elevation of the right hemidiaphragm. IMPRESSION: Stable exam status post nasogastric tube placement. POS: [facility]
[2019-08-24] MEDS: Sodium Chloride 0.45% 1,000 ML IV SCH ×2 (09:33→23:19)
[2019-08-24 17:58] LABS: #Lymphocytes 0.9 thou/uL (1.20-3.40); #Monocytes 0.8 thou/uL (0.11-0.59); #Neutrophils 17.9 thou/uL (1.40-6.50); %Eosinophils 0.1 % (0.0-10.0); %Lymphocytes 4.6 % (21.0-51.0); %Monocytes 4.1 % (0.0-10.0); %Neutrophils 91.1 % (42.0-75.0); Hemoglobin 7.4 g/dL (14.0-18.0); Mean Corpuscular HGB CONC 33.4 g/dL (32.0-36.0); Mean Corpuscular Volume 95.8 fL (78.0-98.0); Mean Platelet Volume 7.8 fL (7.4-10.4); Platelet Count 233 thou/uL (130-400); White Blood Cell (WBC) Count 19.7 thou/uL (4.8-10.8)
[2019-08-25 03:43] LABS: #Lymphocytes 1.2 thou/uL (1.20-3.40); #Neutrophils 13.9 thou/uL (1.40-6.50); %Eosinophils 0.1 % (0.0-10.0); %Lymphocytes 7.7 % (21.0-51.0); %Monocytes 6.4 % (0.0-10.0); %Neutrophils 85.9 % (42.0-75.0); Hemoglobin 6.6 g/dL (14.0-18.0); Mean Corpuscular Hemoglobin 32.2 pg (27.0-31.0); Mean Corpuscular Volume 94.7 fL (78.0-98.0); Mean Platelet Volume 7.9 fL (7.4-10.4); Platelet Count 198 thou/uL (130-400); RBC Distribution Width 12.9 % (11.5-14.5); Red Blood Cell (RBC) Count 2.04 mill/uL (4.70-6.10); White Blood Cell (WBC) Count 16.1 thou/uL (4.8-10.8)
[2019-08-25 04:08] LABS: Anion Gap 13 mmol/L (10-20); BUN (Urea Nitrogen) 57 mg/dL (8.4-25.7); Calc. Creatinine Clearance 48 mL/min (70-130); Calcium 7.9 mg/dL (7.8-10.44); Carbon Dioxide 21 mmol/L (23-31); Chloride 106 mmol/L (98-107); Estimated GFR-MDRD 57; Glucose 136 mg/dL (83-110); Magnesium 1.8 mg/dL (1.6-2.6); Potassium 4.5 mmol/L (3.5-5.1); Sodium 135 mmol/L (136-145)
[2019-08-25] MEDS: Clindamycin/D5W 900 MG in Premix Bag 1 BAG IVPB SCH ×3 (05:02→22:45)
[2019-08-25] MEDS ORDERED: Acetaminophen 325 MG TAB PO PRN ×2 (07:48→12:19)
[2019-08-25] MEDS: Pantoprazole 40 MG VIAL IVP SCH (07:50)
[2019-08-25] MEDS: predniSONE 20 MG TAB PO SCH (07:50)
--- NOTE | 2019-08-25 08:40 | PRG ---
DATE OF SERVICE: 08/25/2019 SUBJECTIVE: He has done well since extubation. He is up in a chair this morning. He has received 1 unit of blood. OBJECTIVE: VITAL SIGNS: Temperature 97.6, pulse 63, blood pressure 136/64, O2 saturation 92%. Intake 2268, output 2320. HEENT: Left periorbital swelling is better. Still has ecchymoses there. He has a nasal tampon in the left nostril. NECK: No adenopathy or JVD. CHEST: Clear to auscultation. CARDIAC: S1, S2. Regular. ABDOMEN: Soft. EXTREMITIES: No edema. LABORATORY: Sodium 135, potassium 4.5, chloride 106, CO2 of 21, BUN 57, creatinine 1.2, and glucose 136. White blood cell count 16.1, hemoglobin 6.6, hematocrit 19.3, and platelet count 198. His x-ray from yesterday showed mild right diaphragmatic elevation. ASSESSMENT: 1. Anemia due to blood loss. 2. Status post respiratory failure, requiring mechanical ventilation. 3. Improved hyperkalemia. 4. Elevated BUN, probably secondary to swallowing of blood. PLAN: 1. Go ahead and stop IV fluids. 2. Recheck H and H at 10 a.m. this morning. If hemoglobin less than 8, give one more unit of blood. 3. Can transfer to [facility]. If he does well today there, then he can be transferred to the floor tomorrow. Job ID: [id number]
[2019-08-25] MEDS ORDERED: Loperamide HCl 2 MG CAP PO PRN (12:19)
[2019-08-25] MEDS ORDERED: Calcium Carbonate 500 MG ChewTAB PO PRN (12:19)
[2019-08-25] MEDS ORDERED: Bisacodyl 10 MG SUPP PR PRN (12:19)
[2019-08-25] MEDS ORDERED: Artificial Tears 18 DROP/0.9 ML EA EYE PRN (12:19)
[2019-08-25] MEDS ORDERED: Diabetic Tussin 200 MG/10 ML UDCUP PO PRN (12:19)
[2019-08-25] MEDS ORDERED: Senokot S 8.6-50 MG TAB PO PRN (12:19)
[2019-08-25] MEDS ORDERED: Sodium Chloride 0.65% Nasal 44 ML BOT EA NARE PRN (12:19)
[2019-08-25] MEDS ORDERED: NIFEdipine XL 60 MG TAB PO SCH (12:30)
[2019-08-25] MEDS ORDERED: Losartan 25 MG TAB PO SCH (12:30)
--- NOTE | 2019-08-25 12:45 | PDOC.HOSPP ---
- Subjective Encounter Date: 08/25/19 Encounter Time: 12:43 Subjective: pt seen and examined, consulted for medical management, last night he had code and he had PEA, had CPR and intubated, transfer to ICU, this morning extubated and transferred to IM, he was admitted by ENT for sinus surgery, he has received blood transfusion, he is stable now, family bedside - Objective Vital Signs & Weight: Vital Signs (12 hours) Temp Pulse Resp Pulse Ox 08/25/19 08:00 98 08/25/19 07:00 97.9 F 08/25/19 06:00 97.6 F 63 20 92 L 08/25/19 04:00 98.2 F Weight Admit Weight 170 lb Weight 173 lb 4 oz Most Recent Monitor Data Heart Rate from ECG 73 NIBP 163/74 NIBP BP-Mean 103 Respiration from ECG 26 SpO2 95 I&O: 08/24/19 08/25/19 08/26/19 06:59 06:59 06:59 Intake Total 4086 2268 800 Output Total 850 2320 150 Balance 3236 -52 650 Result Diagrams: 08/25/19 09:45 08/25/19 03:21 Radiology Reviewed by me: Yes EKG Reviewed by me: Yes Hospitalist ROS - Review of Systems Eyes: denies: pain, vision change, conjunctivae inflammation, eyelid inflammation, redness, other ENT: denies: ear pain, ear discharge, nose pain, nose discharge, nose congestion , mouth pain, mouth swelling, throat pain, throat swelling, other Respiratory: denies: cough, dry, shortness of breath, hemoptysis, SOB with excertion, pleuritic pain, sputum, wheezing, other Cardiovascular: denies: chest pain, palpitations, orthopnea, paroxysmal noc. dyspnea, edema, light headedness, other Gastrointestinal: denies: nausea, vomiting, abdominal pain, diarrhea, constipation, melena, hematochezia, other Musculoskeletal: denies: neck pain, shoulder pain, arm pain, back pain, hand pain, leg pain, foot pain, other - Medication Medications: Active Medications Generic Name Dose Route Start Last Admin Trade Name Freq PRN Reason Stop Dose Admin Clindamycin Phosphate/Dextrose 50 mls @ 100 mls/hr 08/23/19 14:00 08/25/19 05 :02 900 mg/ Device IVPB 50 mls Q8HR SUSANNA Administration Levofloxacin 750 mg/ Device 150 mls @ 100 mls/hr 08/23/19 22:00 08/24/19 21: 51 IVPB 08/27/19 23:29 150 mls 2200 SUSANNA Administration Pantoprazole Sodium 40 mg 08/24/19 09:00 08/25/19 07:50 Protonix IVP 40 mg DAILY SUSANNA Administration Prednisone 40 mg 08/24/19 08:00 08/25/19 07:50 Prednisone PO 08/27/19 08:01 40 mg QAM-WM SUSANNA Administration Sodium Chloride 10 ml 08/23/19 21:00 08/25/19 07:51 Flush - Normal Saline IVF 10 ml Q12HR SUSANNA Administration - Exam General Appearance: NAD, awake alert Eye: PERRL, anicteric sclera ENT: normocephalic atraumatic, no oropharyngeal lesions Neck: supple, symmetric, no JVD, no thyromegaly Heart: RRR, no murmur, no gallops, no rubs Respiratory: CTAB, no wheezes, no rales, no ronchi Gastrointestinal: soft, non-tender, non-distended, normal bowel sounds Extremities: no cyanosis, no clubbing, no edema Skin: normal turgor, no lesions Neurological: no focal deficits Musculoskeletal: normal tone, normal strength Psychiatric: normal affect, normal behavior Hosp A/P (1) Anemia due to acute blood loss Code(s): D62 - ACUTE POSTHEMORRHAGIC ANEMIA Status: Acute (2) Acute respiratory failure Code(s): J96.00 - ACUTE RESPIRATORY FAILURE, UNSP W HYPOXIA OR HYPERCAPNIA Status: Acute (3) CAD (coronary artery disease) Code(s): I25.10 - ATHSCL HEART DISEASE OF [place] CORONARY ARTERY W/O ANG PCTRS Status: Chronic (4) DM2 (diabetes mellitus, type 2) Status: Chronic Qualifiers: Chronic kidney disease stage: stage 3 (moderate) (5) Dyslipidemia Code(s): E78.5 - HYPERLIPIDEMIA, UNSPECIFIED Status: Chronic (6) Gout Code(s): M10.9 - GOUT, UNSPECIFIED Status: Chronic (7) HTN (hypertension) Code(s): I10 - ESSENTIAL (PRIMARY) HYPERTENSION Status: Chronic (8) Hyperkalemia Code(s): E87.5 - HYPERKALEMIA Status: Acute (9) Metabolic acidosis Code(s): E87.2 - ACIDOSIS Status: Acute - Plan old records reviewed/req, plan discussed w/ family 08/25/19 medication reviewed and continue to provide symptomatic care will consult palliative care will repeat H & H at 4 PM will follow consider boles removal but pt wanted to leave in discussed with family
--- NOTE | 2019-08-25 13:32 | CON ---
DATE OF CONSULTATION: Code Note I was on the telemetry unit when the monitor techs noted that Mr. Rogel had become asystolic. On arrival in the room, he had a large clot volume on his left arm, which had been removed. We initially checked for a pulse. There was none and CPR was begun. We bag-mask ventilated him while respiratory therapy prepared for intubation. After our intubation supplies were prepared, we elevated his jaw and suctioned a large volume of clot from his posterior pharynx. The cords were noted and passed a Yankauer sucker into his tracheobronchial tree and evacuated a large volume of clot. He was intubated with #8 endotracheal tube. Good color change was seen and he was ventilated via the endotracheal tube. CPR was continued. Three rounds of epinephrine were given. Eventually, we were able to sustain a sinus rhythm with a palpable pulse. The patient was transferred to the ICU and blood gas was obtained, which showed a hemoglobin of 6.6. Dr. Huggins was notified and arrived on the scene and took over the patient's management. Job ID: [id number]
[2019-08-25] MEDS: hydrALAZINE 20 MG/ML VIAL SLOW IVP PRN (15:38)
[2019-08-25] MEDS ORDERED: HumaLOG 300 UNITS/3 ML VIAL SC PRN ×2 (16:05)
[2019-08-25] MEDS ORDERED: Dextrose 5% in Water 1,000 ML IV PRN (16:05)
[2019-08-25] MEDS ORDERED: Dextrose 50% Abboject 50 ML SYRINGE SLOW IVP PRN (16:05)
--- NOTE | 2019-08-25 16:21 | PDOC.PALCO ---
Palliative Care Consult - Consult Details Requesting Physician: Dr Quigley Reason for Consult: advance directives assistance, complex decision-making Family Members Present: Family friend Efe Franco HPI 88 year old male with an unremarkable past medical history. Present to the hospital 08/23 for elective surgery, experienced bleeding and while on telemetry was found to have a cardiac arrest/PEA. Successful intubation and cardiac measures with admission to CCU and IMCU after successful extubation. Palliative Care was consulted for assistance with advance directives and revisiting resuscitation status. - Social History Smoking Status: Never smoker Smoking: no tobacco exposure Alcohol Use: none Drug Use History: none Living Situation: independent - Medications MAR Reviewed: Yes - Allergies Allergies/Adverse Reactions: Allergies Allergy/AdvReac Type Severity Reaction Status Date / Time Penicillins Allergy Verified 08/22/19 10:31 - Subjective Awake, alert. Family friend Efe Cassidy at bedside. Patient was for greater than 40 years, he became a several years ago. Lives independently , and he had one son who last year. Complains of slight soreness to chest, weakness. - ROS Constitutional: alert, weakness ENT: other (negative for difficulity swallowing, congestion) Respiratory: other (Negative for shortness of breath) Cardiology: other (negative for palpitations) Musculoskeletal: other (Chest pain from CPR compressions) Skin: bruising - Objective Vital Signs: Vital Signs - Most Recent Temp Pulse Resp BP Pulse Ox 97.9 F 65 20 183/79 H 98 08/25/19 07:00 08/25/19 15:38 08/25/19 06:00 08/25/19 15:38 08/25/19 08:00 Palliative Performance Scale: 50 - Physical Exam Constitutional: mild distress HEENT: moist MMs, sclera anicteric Respiratory: no wheezing, unlabored breathing Cardiovascular: no significant murmur, RRR Gastrointestinal: non-tender, no distention, positive bowel sounds Musculoskeletal: no cyanosis, no clubbing Deviation from normal: Limited ROM to right arm/rotator cuff injury Skin: bruising, fragile Psychiatric: A&O x 3 - Problem List (1) Palliative care encounter Code(s): Z51.5 - ENCOUNTER FOR PALLIATIVE CARE Current Visit: Yes Status: Acute (2) Acute respiratory failure Code(s): J96.00 - ACUTE RESPIRATORY FAILURE, UNSP W HYPOXIA OR HYPERCAPNIA Current Visit: Yes Status: Acute (3) Anemia due to acute blood loss Code(s): D62 - ACUTE POSTHEMORRHAGIC ANEMIA Current Visit: Yes Status: Acute (4) CAD (coronary artery disease) Code(s): I25.10 - ATHSCL HEART DISEASE OF [place] CORONARY ARTERY W/O ANG PCTRS Current Visit: No Status: Chronic (5) Dyslipidemia Code(s): E78.5 - HYPERLIPIDEMIA, UNSPECIFIED Current Visit: No Status: Chronic - Plan/Recommendations Plan: Discussed resuscitation status at length with patient. He desires to be cardiac only, no intubation in the future. Efe Cassidy at bedside. In an attempt to determine MPOA patient states he "Thinks it is his niece" who lives in [place]. "Valery" but could not spell or recall specific of last name. We do not have her number. We have the number of a Valery who lives by him but he requested we not call her. Asked if Efe could go in his home to retrieve "paperwork/documents/cell phone" but he said no. Requested that all family leave a number so we can attempt to locate Valery in [place]. Efe Cassidy [phone] [45] minutes spent on this encounter with >50% of the time in counseling and coordination of care. Thank you for this very appropriate consult.
[2019-08-25 16:28] LABS: Hemoglobin 7.8 g/dL (14.0-18.0)
[2019-08-26 05:50] LABS: #Monocytes 1.2 thou/uL (0.11-0.59); #Neutrophils 11.9 thou/uL (1.40-6.50); %Basophils 0.1 % (0.0-1.0); %Eosinophils 0.1 % (0.0-10.0); %Lymphocytes 12.9 % (21.0-51.0); %Monocytes 7.8 % (0.0-10.0); %Neutrophils 79.2 % (42.0-75.0); Mean Corpuscular HGB CONC 35.5 g/dL (32.0-36.0); Mean Corpuscular Hemoglobin 32.6 pg (27.0-31.0); Platelet Count 207 thou/uL (130-400); RBC Distribution Width 13.3 % (11.5-14.5); Red Blood Cell (RBC) Count 2.76 mill/uL (4.70-6.10); White Blood Cell (WBC) Count 15.1 thou/uL (4.8-10.8)
[2019-08-26] MEDS: Clindamycin/D5W 900 MG in Premix Bag 1 BAG IVPB SCH ×3 (05:57→21:46)
[2019-08-26 06:27] LABS: Anion Gap 12 mmol/L (10-20); BUN (Urea Nitrogen) 32 mg/dL (8.4-25.7); Calc. Creatinine Clearance 57 mL/min (70-130); Calcium 8.8 mg/dL (7.8-10.44); Carbon Dioxide 26 mmol/L (23-31); Chloride 106 mmol/L (98-107); Estimated GFR-MDRD 69; Glucose 111 mg/dL (83-110); Phosphorus 1.9 mg/dL (2.3-4.7); Potassium 3.9 mmol/L (3.5-5.1); Sodium 140 mmol/L (136-145)
[2019-08-26] MEDS: NIFEdipine XL 60 MG TAB PO SCH (09:06)
[2019-08-26] MEDS: predniSONE 20 MG TAB PO SCH (09:07)
[2019-08-26] MEDS: Losartan 25 MG TAB PO SCH (09:07)
[2019-08-26] MEDS: Sodium Phosphate 30 MMOL in Sodium Chloride 0.9% 250 ML 250 ML IVPB SCH (10:47)
--- NOTE | 2019-08-26 14:05 | PDOC.HOSPP ---
- Subjective Encounter Date: 08/26/19 Encounter Time: 12:00 Subjective: no overnigh events. This morning, patient complains of complete loss of vision in left eye. 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 CT head and facial STAT and notified ENT. Otherwise, has no complaints. Denies acute headaches or focal weakness. - Objective Vital Signs & Weight: Vital Signs (12 hours) Temp Pulse BP Pulse Ox 08/26/19 09:06 75 152/69 H 08/26/19 08:00 94 L 08/26/19 07:41 98.5 F 08/26/19 03:53 97.9 F Weight Admit Weight 170 lb Weight 173 lb 4 oz Most Recent Monitor Data Heart Rate from ECG 81 NIBP 140/63 NIBP BP-Mean 88 Respiration from ECG 30 SpO2 94 I&O: 08/25/19 08/26/19 08/27/19 06:59 06:59 06:59 Intake Total 2268 3180 Output Total 2320 4450 Balance -52 -1270 Result Diagrams: 08/26/19 05:30 08/26/19 05:30 Additional Labs: Accuchecks 08/26/19 08/26/19 08/25/19 10:45 05:29 19:55 POC Glucose 166 H 126 H 221 H 08/25/19 17:16 POC Glucose 224 H Hospitalist ROS - Review of Systems Constitutional: denies: fever, chills, sweats, weakness, malaise, other Eyes: reports: vision change Respiratory: denies: cough, dry, shortness of breath, hemoptysis, SOB with excertion, pleuritic pain, sputum, wheezing, other Cardiovascular: denies: chest pain, palpitations, orthopnea, paroxysmal noc. dyspnea, edema, light headedness, other Musculoskeletal: denies: neck pain, shoulder pain, arm pain Neurological: denies: weakness, numbness, incoordination, change in speech, confusion - Medication Medications: Active Medications Generic Name Dose Route Start Last Admin Trade Name Freq PRN Reason Stop Dose Admin Hydralazine HCl 10 mg 08/25/19 12:19 08/25/19 15:38 Apresoline SLOW IVP 10 mg Q4H PRN Administration SBP > 180 and HR < 70 Clindamycin Phosphate/Dextrose 50 mls @ 100 mls/hr 08/23/19 14:00 08/26/19 05 :57 900 mg/ Device IVPB 50 mls Q8HR SUSANNA Administration Levofloxacin 750 mg/ Device 150 mls @ 100 mls/hr 08/23/19 22:00 08/25/19 22: 45 IVPB 08/27/19 23:29 150 mls 2200 SUSANNA Administration Sodium Phosphate 30 mmol/ 260 mls @ 43.333 mls/hr 08/26/19 09:00 08/26/19 10: 47 Sodium Chloride IVPB 08/26/19 20:59 260 mls Q6H SUSANNA Administration Insulin Human Lispro 0 units 08/25/19 16:05 08/25/19 18:28 Humalog SC 4 unit .MODERATE SLIDING SC PRN Administration Moderate Correctional Scale Losartan Potassium 50 mg 08/26/19 09:00 08/26/19 09:07 Cozaar PO 50 mg DAILY SUSANNA Administration Nifedipine 60 mg 08/26/19 09:00 08/26/19 09:06 Procardia Xl PO 60 mg DAILY SUSANNA Administration Pantoprazole Sodium 40 mg 08/26/19 09:00 08/26/19 09:07 Protonix PO 40 mg DAILY SUSANNA Administration Prednisone 40 mg 08/24/19 08:00 08/26/19 09:07 Prednisone PO 08/27/19 08:01 40 mg QAM-WM SUSANNA Administration Sodium Chloride 10 ml 08/23/19 21:00 08/26/19 09:13 Flush - Normal Saline IVF 10 ml Q12HR SUSANNA Administration - Exam General Appearance: NAD, awake alert Eye: anicteric sclera. negative: PERRL (no anisocoria, no ophthalmoplegia) Eye - other findings: left pupil not reacting to light, reacts when light on opposite eye. 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
--- NOTE | 2019-08-26 14:50 | CT ---
CT HEAD WITHOUT CONTRAST: 08/26/2019 HISTORY: Vision loss. COMPARISON: CT maxillofacial bones from 08/15/2019. TECHNIQUE: Axial CT imaging at 5 mm intervals from the vertex through the skull base without contrast. FINDINGS: When compared to the 08/15/2019 examination there is new partial opacification of the frontal sinuses with a right frontal sinus air-fluid level. There is new complete opacification of the sphenoid sinu s on the left and there is partial opacification of the sphenoid sinus on the right, which is grossly unchanged as well. New air-fluid levels within the bilateral maxillary sinuses with hyperdensity, co nsistent with internal hemorrhage. There is extensive new opacification of the bilateral ethmoid air cells. Some of the material opacify ing the ethmoid air cells is hyperdense, suggesting internal hemorrhage. There is a subtle new fractu re involving the medial orbital wall/lamina papyracea on the right. There is a new laterally displace d lamina papyracea fracture/medial orbital wall fracture on the left. Through this new fracture of th e left lamina papyracea there is extension of hyperdense material. This causes mass effect on the lef t medial rectus muscle, which is slightly deviated laterally. There is associated mild new left exoph thalmos. There is atherosclerotic calcification involving the cavernous carotid arteries and the distal verteb ral arteries bilaterally. No intracranial hemorrhage, midline shift or mass effect. Extensive periven tricular and deep white matter hypodensity suggests small vessel disease. IMPRESSION: Interval extensive paranasal sinus opacification with scattered areas of hyperdense secretions, inclu ding the ethmoid air cells, the sphenoid sinuses and the maxillary sinuses, suggesting hemorrhage. Ne w bilateral lamina papyracea/medial orbital wall fractures, most significant on the left. The secreti ons within the left ethmoid air cells extend through the fracture of the left lamina papyracea and ex ert mass effect on the left medial rectus muscle, which is slightly deviated to the left. There is al so new left exophthalmos. POS: [facility]
--- NOTE | 2019-08-26 15:07 | CT ---
CT of the orbits 08/26/2019 COMPARISON: CT of the paranasal sinuses to 10/30/2019 HISTORY: Difficulty with left-sided vision following paranasal sinus surgery. TECHNIQUE: Axial CT imaging at 2.5 mm intervals through the orbits with coronal and sagittal reformat damon imaging FINDINGS: There is new partial opacification of the frontal sinuses with hyperdense secretions and ai r-fluid levels suggesting internal paranasal sinus hemorrhage. Similar findings are noted within bilateral ethmoid air cells, sphenoid sinuses, and maxillary sinuses. The retroantral fat appears ki ar. The patient appears status post interval bilateral uncinatectomy. There is a new slightly laterally d isplaced fracture of the medial orbital wall on the right. On the left there is a new multifocal fracture of the medial orbital wall. There is significant later al displacement. Through the fracture of the left medial orbital wall is extension of paranasal sinus contents, including hyperdense contents likely on the basis of hemorrhage. This leads to mass e ffect on the medial rectus muscle on the left which is deviated laterally. There is also a mild degree of hemorrhage extending into the superior aspect of the orbit on the left adjacent to the supe rior oblique muscle. This leads to a mild degree of exophthalmus on the left. IMPRESSION: Interval paranasal sinus surgery with extensive paranasal sinus opacification, including contents of hyperdensity consistent with hemorrhage. Of note, new medial orbital wall fractures are noted bilaterally, left more conspicuous than right. Through the fracture on the left there is extens ion of hyperdense paranasal sinus component suggesting hemorrhage which results in lateral deviation of the left medial rectus muscle as well as left exophthalmus. CODE T- Dr. Bryan made aware at 3:05 PM via phone by Dr. Bliss 08/26/2019
--- NOTE | 2019-08-26 18:21 | PRG ---
DATE OF SERVICE: 08/26/2019 SUBJECTIVE: Mr. Rogel has no complaints. OBJECTIVE: VITAL SIGNS: He is afebrile. Oximetry is 97 on room air, blood pressure 165/75, heart rate 86. HEENT: He has an ecchymotic periorbital area and subconjunctival hemorrhage on the left. He has no light perception in his left eye. He can see fine on his right eye. He still has left nasal packing. LUNGS: Clear. HEART: Regular rhythm. ABDOMEN: Soft. IMPRESSION: 1. Status post arrest associated with a postop hemorrhage. 2. Status post CT today showing a laterally displaced fracture of the medial orbital wall on the right and left. Apparently, there is retro-orbital blood seen on the CT. 3. Status post code associated with perioperative hemorrhage. 4. 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 I cannot find a note, although I was told by my associate that the retina doctor did seem in the perioperative period. There is no dictation. There is no progress notes in the chart, so I am not really sure what the affect was. Unfortunately, he has no light perception in his left eye which would lead me to believe that he has lost his vision in his left eye. From a pulmonary standpoint, he is stable. Job ID: [id number]
[2019-08-27] MEDS: Sodium Phosphate 30 MMOL in Sodium Chloride 0.9% 250 ML 250 ML IVPB SCH (02:04)
[2019-08-27 03:46] LABS: #Lymphocytes 1.6 thou/uL (1.20-3.40); #Monocytes 1.2 thou/uL (0.11-0.59); #Neutrophils 9.1 thou/uL (1.40-6.50); %Eosinophils 0.2 % (0.0-10.0); %Lymphocytes 13.6 % (21.0-51.0); %Neutrophils 76.2 % (42.0-75.0); Hemoglobin 8.1 g/dL (14.0-18.0); Mean Corpuscular Hemoglobin 32.5 pg (27.0-31.0); Mean Corpuscular Volume 92.7 fL (78.0-98.0); Mean Platelet Volume 7.6 fL (7.4-10.4); Platelet Count 182 thou/uL (130-400); RBC Distribution Width 13.5 % (11.5-14.5); Red Blood Cell (RBC) Count 2.48 mill/uL (4.70-6.10); White Blood Cell (WBC) Count 11.9 thou/uL (4.8-10.8)
[2019-08-27 04:15] LABS: Anion Gap 13 mmol/L (10-20); BUN (Urea Nitrogen) 23 mg/dL (8.4-25.7); Calc. Creatinine Clearance 63 mL/min (70-130); Calcium 8.2 mg/dL (7.8-10.44); Carbon Dioxide 24 mmol/L (23-31); Chloride 107 mmol/L (98-107); Estimated GFR-MDRD 78; Glucose 103 mg/dL (83-110); Magnesium 1.7 mg/dL (1.6-2.6); Phosphorus 3.5 mg/dL (2.3-4.7); Potassium 3.7 mmol/L (3.5-5.1); Sodium 140 mmol/L (136-145)
[2019-08-27] MEDS: Clindamycin/D5W 900 MG in Premix Bag 1 BAG IVPB SCH ×3 (05:20→22:28)
[2019-08-27] MEDS: NIFEdipine XL 60 MG TAB PO SCH (08:36)
[2019-08-27] MEDS: predniSONE 20 MG TAB PO SCH (08:38)
[2019-08-27] MEDS: Losartan 25 MG TAB PO SCH (08:39)
--- NOTE | 2019-08-27 17:12 | PRG ---
DATE OF SERVICE: 08/27/2019 SUBJECTIVE: Mr. Rogel still has no light perception in his left eye. I contacted Dr. Sellers who apparently discussed the case with Dr. Mascorro and then called back stating that he would be happy to come look at Mr. Rogel. OBJECTIVE: VITAL SIGNS: He is afebrile. Blood pressure is 165/77, heart rate is 80, respiratory rates in the 20s. LUNGS: Clear. HEART: Regular rhythm. ABDOMEN: Soft[place] no way that he can go home with vision out of one eye, living alone, [place] am told [place]. There is no way he can drive at this point safely given his advanced age and vision out of one eye. We need to get all these issues resolved and also get him through some rehab before he can be discharged in my opinion. I appreciate Dr. 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 Job ID: [id number]
--- NOTE | 2019-08-27 22:33 | PDOC.HOSPP ---
- Subjective Encounter Date: 08/27/19 Encounter Time: 09:30 Subjective: no overnight events. Nasal packing removed. Patient continues to have no light perception in left eye. Otherwise no complaints. - Objective Vital Signs & Weight: Vital Signs (12 hours) Temp Pulse Ox 08/27/19 20:00 96 08/27/19 19:54 98.8 F 08/27/19 16:05 98.6 F 08/27/19 11:13 98.9 F Weight Admit Weight 170 lb Weight 173 lb 4 oz Most Recent Monitor Data Heart Rate from ECG 70 NIBP 147/67 NIBP BP-Mean 93 Respiration from ECG 23 SpO2 95 I&O: 08/26/19 08/27/19 08/28/19 06:59 06:59 06:59 Intake Total 3180 480 Output Total 4450 875 Balance -1270 -395 Result Diagrams: 08/27/19 03:36 08/27/19 03:36 Additional Labs: Accuchecks 08/27/19 08/27/19 08/27/19 20:27 16:36 10:35 POC Glucose 272 H 249 H 153 H 08/27/19 05:46 POC Glucose 112 H Hospitalist ROS - Review of Systems Constitutional: denies: fever, chills, sweats, weakness, malaise, other Eyes: reports: other (complete loss of vision in left eye) Respiratory: denies: cough, dry, shortness of breath, hemoptysis, SOB with excertion, pleuritic pain, sputum, wheezing, other Cardiovascular: denies: chest pain, palpitations, orthopnea, paroxysmal noc. dyspnea, edema, light headedness, other Gastrointestinal: denies: nausea, vomiting, abdominal pain, diarrhea, constipation, melena, hematochezia, other Neurological: denies: weakness, numbness, incoordination, change in speech, confusion, seizures - Medication Medications: Active Medications Generic Name Dose Route Start Last Admin Trade Name Freq PRN Reason Stop Dose Admin Hydralazine HCl 10 mg 08/25/19 12:19 08/25/19 15:38 Apresoline SLOW IVP 10 mg Q4H PRN Administration SBP > 180 and HR < 70 Clindamycin Phosphate/Dextrose 50 mls @ 100 mls/hr 08/23/19 14:00 02/16/20 22 :28 900 mg/ Device IVPB 50 mls Q8HR SUSANNA Administration Levofloxacin 750 mg/ Device 150 mls @ 100 mls/hr 08/23/19 22:00 08/27/19 22: 29 IVPB 08/27/19 23:29 150 mls 2200 SUSANNA Administration Insulin Human Lispro 0 units 08/25/19 16:05 08/25/19 18:28 Humalog SC 4 unit .MODERATE SLIDING SC PRN Administration Moderate Correctional Scale Losartan Potassium 50 mg 08/26/19 09:00 08/27/19 08:39 Cozaar PO 50 mg DAILY SUSANNA Administration Nifedipine 60 mg 08/26/19 09:00 08/27/19 08:36 Procardia Xl PO 60 mg DAILY SUSANNA Administration Pantoprazole Sodium 40 mg 08/26/19 09:00 08/27/19 08:39 Protonix PO 40 mg DAILY SUSANNA Administration Sodium Chloride 10 ml 08/23/19 21:00 08/27/19 22:28 Flush - Normal Saline IVF 10 ml Q12HR SUSANNA Administration Sodium Chloride 0 ml 08/25/19 12:19 08/27/19 05:16 [place] Nasal [place] 0.65% EA NARE 1 spr QIDPRN PRN Administration Nasal Congestion - Exam General Appearance: NAD, awake alert Eye - other findings: afferent left pupillary defect; unchanged; left orbital superficial hematom ENT - other findings: nasal packing removed; dry blood; Heart: RRR, no murmur, no gallops, no rubs, normal peripheral pulses Respiratory: CTAB, no wheezes, no rales, no ronchi, normal chest expansion Gastrointestinal: soft, non-tender, non-distended, normal bowel sounds, no palpable masses, no hepatomegaly, no splenomegaly, no bruit Extremities: no edema Neurological: normal sensation to touch, no weakness, no focal deficits, no new deficit, vision deficit. 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 abbott) who evaluated imaging and thinks it is unlikely a result of mass effect or vascular but rather neuritis -discussed with patient and educated regarding inability to predict improvement and possibility of permanent loss, as was relayed to me by Dr. Abbott #left orbital hematoma #left nasal bleeding -packing removed -no additional bleeding episodes #Type 2 DM -BG increasing -at home on metformin -currently sliding scale Plan: -will transfer to stroke unit in AM if no additional bleeding episodes or new neurological findings -avoid anticoagulants and antiplatelets -diet restarted; will reassess BG control Code status: PRTL
[2019-08-27] MEDS ORDERED: metFORMIN 500 MG TAB PO SCH (23:00)
[2019-08-28] MEDS: hydrALAZINE 20 MG/ML VIAL SLOW IVP PRN (03:16)
[2019-08-28 04:39] LABS: #Lymphocytes 1.7 thou/uL (1.20-3.40); #Neutrophils 7.6 thou/uL (1.40-6.50); %Basophils 0.1 % (0.0-1.0); %Eosinophils 0.4 % (0.0-10.0); %Monocytes 9.7 % (0.0-10.0); %Neutrophils 73.8 % (42.0-75.0); Anion Gap 12 mmol/L (10-20); BUN (Urea Nitrogen) 21 mg/dL (8.4-25.7); Calc. Creatinine Clearance 62 mL/min (70-130); Calcium 8.1 mg/dL (7.8-10.44); Carbon Dioxide 24 mmol/L (23-31); Chloride 105 mmol/L (98-107); Estimated GFR-MDRD 76; Glucose 90 mg/dL (83-110); Hemoglobin 8.6 g/dL (14.0-18.0); Magnesium 1.8 mg/dL (1.6-2.6); Mean Corpuscular HGB CONC 34.4 g/dL (32.0-36.0); Mean Corpuscular Hemoglobin 32.3 pg (27.0-31.0); Mean Corpuscular Volume 93.7 fL (78.0-98.0); Mean Platelet Volume 7.7 fL (7.4-10.4); Phosphorus 2.8 mg/dL (2.3-4.7); Platelet Count 219 thou/uL (130-400); Potassium 3.8 mmol/L (3.5-5.1); RBC Distribution Width 13.6 % (11.5-14.5); Red Blood Cell (RBC) Count 2.65 mill/uL (4.70-6.10); Sodium 137 mmol/L (136-145); White Blood Cell (WBC) Count 10.3 thou/uL (4.8-10.8)
--- NOTE | 2019-08-28 04:45 | PDOC.EVN ---
Event Note - Event Note Event Note: RN called - Pt has CP. Will get EKG/troponins
[2019-08-28] MEDS ORDERED: Nitroglycerin 0.4 MG TAB (25 Tab Bottle) ONE (04:57)
[2019-08-28] MEDS: Nitroglycerin 0.4 MG TAB (25 Tab Bottle) PO PRN ×2 (04:58→05:21)
[2019-08-28] MEDS: Clindamycin/D5W 900 MG in Premix Bag 1 BAG IVPB SCH ×3 (08:09→21:37)
[2019-08-28] MEDS: Losartan 25 MG TAB PO SCH (08:11)
[2019-08-28] MEDS: NIFEdipine XL 60 MG TAB PO SCH (08:11)
[2019-08-28 08:27] LABS: Troponin I 0.131 ng/mL (< 0.028)
--- NOTE | 2019-08-28 08:39 | CON ---
DATE OF CONSULTATION: 08/27/2019 TIME OF CONSULT: 1030 hours. REASON FOR CONSULTATION: Loss of vision in left eye. HISTORY OF PRESENT ILLNESS: The patient is an 88-year-old man who was having an endoscopic sinus surgery. Immediately afterwards, he had considerable subconjunctival hemorrhage and swelling of the left eye. Dr. Randolph was consulted in the operating room and he recommended to remove blood from the posterior orbit. Subsequently, the patient additionally,.aspirated some blood, producing cardiac arrest with immediate resuscitation and is now functioning at his pre- arrest level. CT of the orbits has shown fractures of the medial wall of both orbits, with displacement of the left medial rectus muscle and extending into the left posterior orbit. He has been noted by [employer] to have no light perception in his left eye. The medical record was reviewed. PHYSICAL EXAMINATION: Visual acuity with right eye J-3. Left eye has no light perception with penlight through the lid. Intraocular pressure with a Himanshu-Pen was 15 right eye , and 25 mm Hg left eye. The ocular motility exam shows good alignment and full range of motion. There is no proptosis. The pupils are equal at about 3 or 4 mm. The right pupil is briskly reactive to light. The left pupil is nonreactive to direct light in shows a 4+ left relative afferent pupillary defect. There is slight bruising of the right lids and dense bruising of left lids. There is a 360 degree patchy subconjunctival hemorrhage of the left eye. Corneas are clear and the anterior chambers have normal depth. There is 2+ nuclear sclerotic cataract of each eye. Dilated fundus exam showed no pathology in either eye. Both retinas are flat and intact without any hemorrhages or areas of edema. Both optic nerves are of normal color, not elevated, with a cup/disk ratio of about 0.2. There are no pigment changes within the macular area. 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 This is not likely to show any recovery. There is no additional treatment indicated. This was discussed with the patient. Job ID: [id number] [facility]
--- NOTE | 2019-08-28 09:30 | PRG ---
DATE OF SERVICE: 08/28/2019 SUBJECTIVE: The patient is up, walking in the halls, still has not regained sight with his left eye. OBJECTIVE: VITAL SIGNS: Temperature 98, pulse 70, blood pressure 177/75, O2 saturation 96%. HEENT: Left eye ecchymosis. NECK: No JVD. CHEST: Clear. CARDIAC: S1 and S2 regular. ABDOMEN: Soft. LABORATORY DATA: White blood cell count 10, hematocrit 24.8, platelet count 219. Sodium 137, potassium 3.8, BUN 21, creatinine 0.9, glucose 90. ASSESSMENT: 1. Status post respiratory failure, requiring mechanical ventilation. 2. Status post cardiopulmonary arrest after extensive bleeding from sinus surgery. 3. Failure to regain left eyesight. PLAN: No real suggestions from Pulmonary standpoint, probably transferred up to the regular floor. We will sign off the case. Please recall further assistance if needed. Job ID: [id number]
--- NOTE | 2019-08-28 11:48 | PRG ---
DATE OF SERVICE: 08/28/2019 SUBJECTIVE: The patient was doing well over the weekend. He had a hemoglobin once dropped from 9 to 8, now up this morning, was back up to 8.6. He did have an episode of chest pain about 4 a.m. in the morning, and chest x-ray was ordered. Troponins and EKG were ordered. His first round of troponins are negative thus far. Otherwise, the patient is resting comfortably in bed. He is alert and oriented and completely aware and involved in his situation. Dr. Sellers visited the patient over the weekend. I have put a phone call with Dr. Sellers this morning. He reports that his pupillary responses were intact. Extraocular muscles markedly diminished visual acuity on this side with low likelihood of judaism of vision in his left eye. OBJECTIVE: GENERAL: The patient is resting comfortably in bed. HEENT: Pupillary responses intact. Extraocular muscles are intact. Left orbit shows very mild amount of proptosis compared to the right side. Otherwise, the periorbital ecchymosis is resolving. Nasal cavity, stuffy and congested. Postoperative changes are intact and within normal limits. Oral cavity and oropharynx, no postnasal bleeding or drainage noticed. NECK: No lymphadenopathy. No masses. ASSESSMENT AND PLAN: 1. Recent angina. Troponin levels were ordered. However, the patient could have multiple etiologies from his chest compressions he received just a few days ago. 2. Left decreased visual acuity as discussed with Dr. Sellers. He can evaluate him with glasses, he recommends in the next 2 to 3 weeks. In the meantime, we need to first rule out any acute cardiac cause of his angina. If he clears that, we will begin physical therapy and occupational therapy, assuring that Mr. Rogel can return to his residence safely. 3. Allergic fungal sinusitis, status post endoscopic sinus surgery. We would normally begin endoscopic debridements this week in clinic; however, secondary to the medial orbital decompression that was performed and also concern for some of his blood loss over the weekend, we will hold off on debridements until next week. I will begin very gentle nasal saline irrigations maybe Wednesday. Job ID: [id number]
--- NOTE | 2019-08-28 13:44 | PDOC.HOSPP ---
- Subjective Encounter Date: 08/28/19 Encounter Time: 09:00 Subjective: overnight, substernal chest pressure somewhat allevviated by nitroglycerin. No other symptoms. 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 This morning, feeling well and has no complaints. left eyesight unchanged. - Objective Vital Signs & Weight: Vital Signs (12 hours) Temp Pulse Pulse Pulse BP BP BP 08/28/19 11:19 97.2 F L 08/28/19 09:00 79 78 164/76 H 145/68 H 08/28/19 08:11 69 182/82 H 08/28/19 07:21 98.0 F 08/28/19 03:39 98.5 F 08/28/19 03:16 69 182/82 H Weight Admit Weight 170 lb Weight 173 lb 4 oz Most Recent Monitor Data Heart Rate from ECG 81 NIBP 164/76 NIBP BP-Mean 105 Respiration from ECG 34 SpO2 97 I&O: 08/27/19 08/28/19 08/29/19 06:59 06:59 06:59 Intake Total 480 240 Output Total 875 500 550 Balance -395 -260 -550 Result Diagrams: 08/28/19 03:33 08/28/19 03:33 Additional Labs: Accuchecks 08/28/19 08/28/19 08/27/19 10:46 06:35 20:27 POC Glucose 150 H 112 H 272 H 08/27/19 16:36 POC Glucose 249 H Hospitalist ROS - Review of Systems Constitutional: denies: fever, chills, sweats, weakness, malaise, other Respiratory: denies: cough, dry, shortness of breath, hemoptysis, SOB with excertion, pleuritic pain, sputum, wheezing, other Cardiovascular: denies: chest pain, palpitations, orthopnea, paroxysmal noc. dyspnea, edema, light headedness, other Gastrointestinal: denies: nausea, vomiting, abdominal pain, diarrhea, constipation, melena, hematochezia, other Genitourinary: denies: hematuria Neurological: denies: weakness, numbness, incoordination, change in speech, confusion, seizures, other - Medication Medications: Active Medications Generic Name Dose Route Start Last Admin Trade Name Freq PRN Reason Stop Dose Admin Hydralazine HCl 10 mg 08/25/19 12:19 08/28/19 03:16 Apresoline SLOW IVP 10 mg Q4H PRN Administration SBP > 180 and HR < 70 Clindamycin Phosphate/Dextrose 50 mls @ 100 mls/hr 08/23/19 14:00 08/28/19 08 :09 900 mg/ Device IVPB 50 mls Q8HR SUSANNA Administration Insulin Human Lispro 0 units 08/25/19 16:05 08/25/19 18:28 Humalog SC 4 unit .MODERATE SLIDING SC PRN Administration Moderate Correctional Scale Losartan Potassium 50 mg 08/26/19 09:00 08/28/19 08:11 Cozaar PO 50 mg DAILY SUSANNA Administration Nitroglycerin 0.4 mg 08/28/19 04:40 08/28/19 05:21 Nitrostat PO 0.4 mg Q5MIN PRN Administration Chest Pain Pantoprazole Sodium 40 mg 08/26/19 09:00 08/28/19 08:11 Protonix PO 40 mg DAILY SUSANNA Administration Sodium Chloride 10 ml 08/23/19 21:00 08/28/19 08:12 Flush - Normal Saline IVF 10 ml Q12HR SUSANNA Administration Sodium Chloride 0 ml 08/25/19 12:19 08/27/19 05:16 [place] Nasal [place] 0.65% EA NARE 1 spr QIDPRN PRN Administration Nasal Congestion - Exam General Appearance: NAD, awake alert Eye - other findings: afferent pupillary defect unchanged ENT: normocephalic atraumatic ENT - other findings: orbital hematoma unchanged Neck: no JVD Heart: RRR, no murmur, no gallops Respiratory: CTAB, no wheezes, no rales, no ronchi Gastrointestinal: soft, non-tender, non-distended, normal bowel sounds Extremities: no edema Neurological: no weakness, no focal deficits, no new deficit, vision deficit. negative: facial droop, hemiplegia, speech deficit Musculoskeletal: normal tone, normal strength Psychiatric: normal affect, normal behavior, A&O x 3 Hosp A/P - Plan #hypertensive emergency #type 2 NSTEMI #CAD s/p CBG (5 vessel) #PEA requiring CPR this admission -typical chest pressure overnight, grossly elevated BP at time -ekg showing old anteroseptal infarct, no new ischemic changes -likely demand ischemia due to hypertensive emergency -symptoms resolved (08/28 AM) -aspirin and plavix held due to bleeding #left eye loss of vision s/p sinus surgery -ophthalmology reassessed patient; recommendations appreciated and no change in management #allergic fungal sinusitis s/p endoscopic surgery #left orbital hematoma #left nasal bleeding -packing removed -no additional bleeding episodes since 08/26; hgb stable -per ENT, will debride next week #Type 2 DM -BG increasing -at home on metformin -currently sliding scale Plan: -transfer to telemetry -started coreg (25mg bid at home, started 6.25 bid here) for better control of blood pressure; nitroglycerin PRN; has indication for ACEI however if coughs might precipitate sinus/nasal bleeding -avoid anticoagulants and antiplatelets -diet restarted; will reassess BG control Code status: PRTL
[2019-08-28] MEDS: Carvedilol 6.25 MG TAB PO SCH (16:28)
[2019-08-28] MEDS ORDERED: Carvedilol 6.25 MG TAB PO SCH (17:00)
[2019-08-28] MEDS ORDERED: Carvedilol 25 MG TAB PO SCH (21:00)
[2019-08-29 04:13] LABS: #Eosinphils 0.2 thou/uL (0.0-0.7); #Lymphocytes 1.4 thou/uL (1.20-3.40); #Monocytes 1.1 thou/uL (0.11-0.59); #Neutrophils 7.9 thou/uL (1.40-6.50); %Basophils 0.1 % (0.0-1.0); %Eosinophils 1.6 % (0.0-10.0); %Lymphocytes 12.9 % (21.0-51.0); %Monocytes 10.1 % (0.0-10.0); %Neutrophils 75.4 % (42.0-75.0); Anion Gap 11 mmol/L (10-20); BUN (Urea Nitrogen) 22 mg/dL (8.4-25.7); Calc. Creatinine Clearance 56 mL/min (70-130); Calcium 8.3 mg/dL (7.8-10.44); Carbon Dioxide 25 mmol/L (23-31); Chloride 103 mmol/L (98-107); Estimated GFR-MDRD 68; Glucose 117 mg/dL (83-110); Hemoglobin 8.6 g/dL (14.0-18.0); Magnesium 1.8 mg/dL (1.6-2.6); Mean Corpuscular HGB CONC 34.8 g/dL (32.0-36.0); Mean Corpuscular Hemoglobin 32.6 pg (27.0-31.0); Mean Corpuscular Volume 93.7 fL (78.0-98.0); Mean Platelet Volume 7.6 fL (7.4-10.4); Platelet Count 222 thou/uL (130-400); RBC Distribution Width 13.6 % (11.5-14.5); Red Blood Cell (RBC) Count 2.64 mill/uL (4.70-6.10); Sodium 135 mmol/L (136-145); White Blood Cell (WBC) Count 10.5 thou/uL (4.8-10.8)
[2019-08-29] MEDS: Clindamycin/D5W 900 MG in Premix Bag 1 BAG IVPB SCH ×3 (06:14→22:13)
[2019-08-29] MEDS: Carvedilol 6.25 MG TAB PO SCH ×2 (10:15→18:09)
[2019-08-29] MEDS: Atorvastatin Calcium 40 MG TAB PO SCH (10:15)
[2019-08-29] MEDS: Losartan 25 MG TAB PO SCH (10:15)
[2019-08-29] MEDS: Digoxin 0.125 MG TAB PO SCH (10:15)
[2019-08-29] MEDS: NIFEdipine XL 60 MG TAB PO SCH (10:16)
--- NOTE | 2019-08-29 17:20 | PDOC.HOSPP ---
- Subjective Encounter Date: 08/29/19 Encounter Time: 09:00 Subjective: no overnight events. No additional episodes of chest pressure. No change in left eye vision. Has no complaints. - Objective Vital Signs & Weight: Vital Signs (12 hours) Temp Pulse Resp BP BP Pulse Ox 08/29/19 15:40 99.7 F H 78 22 H 132/65 95 08/29/19 11:54 97.4 F L 72 16 164/70 H 97 08/29/19 10:16 115/59 L 08/29/19 10:15 69 115/59 L 08/29/19 07:39 98.2 F Weight Admit Weight 170 lb Weight 173 lb 4 oz Most Recent Monitor Data Heart Rate from ECG 68 NIBP 125/55 NIBP BP-Mean 78 Respiration from ECG 25 SpO2 96 I&O: 08/28/19 08/29/19 08/30/19 06:59 06:59 06:59 Intake Total 240 1220 Output Total 500 1800 10 Balance -260 -580 -10 Result Diagrams: 08/29/19 03:11 08/29/19 03:11 Additional Labs: Accuchecks 08/29/19 08/29/19 08/29/19 16:33 10:35 06:25 POC Glucose 208 H 164 H 133 H 08/28/19 20:24 POC Glucose 150 H Hospitalist ROS - Review of Systems Constitutional: denies: fever, chills, sweats, weakness, malaise, other Eyes: denies: vision change Respiratory: denies: cough, dry, shortness of breath, hemoptysis, SOB with excertion, pleuritic pain, sputum, wheezing, other Cardiovascular: denies: chest pain, palpitations, orthopnea, paroxysmal noc. dyspnea, edema, light headedness, other Gastrointestinal: denies: nausea, vomiting, abdominal pain, diarrhea, constipation, melena, hematochezia, other Genitourinary: denies: dysuria, frequency, incontinence, hematuria, retention, other Neurological: denies: weakness, numbness, incoordination, change in speech, confusion, seizures, other - Medication Medications: Active Medications Generic Name Dose Route Start Last Admin Trade Name Freq PRN Reason Stop Dose Admin Atorvastatin Calcium 40 mg 08/29/19 09:00 08/29/19 10:15 Lipitor PO 40 mg DAILY SUSANNA Administration Carvedilol 12.5 mg 08/28/19 17:00 08/29/19 10:15 Coreg PO 12.5 mg BID-WM SUSANNA Administration Digoxin 0.125 mg 08/29/19 09:00 08/29/19 10:15 Lanoxin PO 0.125 mg QAM SUSANNA Administration Hydralazine HCl 10 mg 08/25/19 12:19 08/28/19 03:16 Apresoline SLOW IVP 10 mg Q4H PRN Administration SBP > 180 and HR < 70 Clindamycin Phosphate/Dextrose 50 mls @ 100 mls/hr 08/23/19 14:00 08/29/19 14 :09 900 mg/ Device IVPB 50 mls Q8HR SUSANNA Administration Insulin Human Lispro 0 units 08/25/19 16:05 08/25/19 18:28 Humalog SC 4 unit .MODERATE SLIDING SC PRN Administration Moderate Correctional Scale Losartan Potassium 50 mg 08/26/19 09:00 08/29/19 10:15 Cozaar PO 50 mg DAILY SUSANNA Administration Nifedipine 60 mg 08/29/19 09:00 08/29/19 10:16 Procardia Xl PO 60 mg DAILY SUSANNA Administration Nitroglycerin 0.4 mg 08/28/19 04:40 08/28/19 05:21 Nitrostat PO 0.4 mg Q5MIN PRN Administration Chest Pain Pantoprazole Sodium 40 mg 08/26/19 09:00 08/29/19 10:16 Protonix PO 40 mg DAILY SUSANNA Administration Sodium Chloride 0 ml 08/25/19 12:19 08/27/19 05:16 [place] Nasal [place] 0.65% EA NARE 1 spr QIDPRN PRN Administration Nasal Congestion - Exam General Appearance: NAD, awake alert Eye - other findings: no change in afferent pupillary defect ENT - other findings: left eye hematoma unchanged Neck: supple, symmetric, no JVD Heart: RRR, no murmur, no gallops, no rubs, normal peripheral pulses Respiratory: CTAB, no wheezes, no rales, no ronchi, normal chest expansion Gastrointestinal: soft, non-tender, non-distended, normal bowel sounds, no bruit Extremities: no edema Psychiatric: normal affect, normal behavior, A&O x 3 Hosp A/P - Plan #hypertensive emergency #type 2 NSTEMI #CAD s/p CBG (5 vessel) #PEA requiring CPR this admission -no additional chest pressure since 08/28 -aspirin and plavix held due to bleeding #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 -ophthalmology reassessed patient; recommendations appreciated and no change in management #allergic fungal sinusitis s/p endoscopic surgery #left orbital hematoma #left nasal bleeding -packing removed (08/27) -no additional bleeding episodes since 08/26; hgb stable -per ENT, pending debridment #Type 2 DM -BG well controlled after restarting home metformin Plan: -transfered to telemetry -started coreg (25mg bid at home, started 6.25 bid here) and blood pressure well controlled; nitroglycerin PRN; has indication for ACEI however if coughs might precipitate sinus/nasal bleeding -avoid anticoagulants and antiplatelets Code status: PRTL
[2019-08-30] MEDS: Clindamycin/D5W 900 MG in Premix Bag 1 BAG IVPB SCH ×2 (05:34→14:31)
[2019-08-30 05:39] LABS: Anion Gap 10 mmol/L (10-20); BUN (Urea Nitrogen) 22 mg/dL (8.4-25.7); Calc. Creatinine Clearance 63 mL/min (70-130); Calcium 8.3 mg/dL (7.8-10.44); Carbon Dioxide 27 mmol/L (23-31); Chloride 104 mmol/L (98-107); Estimated GFR-MDRD 78; Glucose 141 mg/dL (83-110); Magnesium 1.9 mg/dL (1.6-2.6); Potassium 3.9 mmol/L (3.5-5.1); Sodium 137 mmol/L (136-145)
[2019-08-30] MEDS: Atorvastatin Calcium 40 MG TAB PO SCH (09:12)
[2019-08-30] MEDS: Digoxin 0.125 MG TAB PO SCH (09:12)
[2019-08-30] MEDS: Carvedilol 6.25 MG TAB PO SCH ×2 (09:12→17:00)
[2019-08-30] MEDS: Losartan 25 MG TAB PO SCH (09:13)
[2019-08-30] MEDS: NIFEdipine XL 60 MG TAB PO SCH (09:13)
[2019-08-30 16:21] VITALS: BP 122/59; TEMP 97.9
--- NOTE | 2019-08-31 13:49 | DIS ---
DATE OF ADMISSION: 08/23/2019 DATE OF DISCHARGE: 08/30/2019 HOSPITAL COURSE: Mr. Rogel is an 88-year-old male with a medical history of coronary artery disease, type 2 diabetes, and hypertension, who underwent an elective procedure for full treatment of allergic fungal sinusitis. He underwent left endoscopic medial orbital wall decompression after he had a hematoma and he initially tolerated the procedure well. He was admitted to the telemetry floor status post procedure, but developed pulseless electrical activity, so was revised via CPR and admitted to the ICU. In the ICU, he was doing well. However, he reported completely losing the vision in his left eye. ENT and Ophthalmology were consulted. Per Ophthalmology, there was no intraocular pathology, and ENT suggested that the patient lost his vision due to optic neuritis. The patient was educated regarding his loss of vision and was informed that he may not regain the vision in his left eye. He was discharged to a rehab facility in order to assure that he is accustoming to his loss of vision as well as follow his postsurgical course considering he had significant bleeding. He was discharged home hemodynamically stable. PHYSICAL EXAMINATION: VITAL SIGNS: Unremarkable. GENERAL: He was in no apparent distress, awake, and alert. HEENT: Eye exam, left afferent pupillary defect. No perception of light, left eye hematoma, superficial hematoma, unchanged. NECK: Supple. Symmetric. No JVD. HEART: Regular rate and rhythm. No murmur. No gallops. No rubs. Normal peripheral pulses. RESPIRATORY: Clear to auscultation bilaterally. No wheezes. No rales. No rhonchi. Normal chest expansion. GI: Soft, nontender, nondistended. Normal bowel sounds. No bruits. EXTREMITIES: No edema. PSYCHIATRIC: Normal affect. Normal behavior. Alert and oriented x3. ASSESSMENT AND PLAN: Mr. Rogel is an 88-year-old with a medical history of Aspergillus sinusitis, who presented for treatment of the sinusitis, status post endoscopic surgery developed hematoma as well as left nasal bleed. He underwent decompression. After decompression, developed pulseless electrical activity. Therefore, admitted to the ICU. He recovered promptly. However, he did lose the vision in his left eye due to optic neuritis. Prior to discharge, the patient underwent debridement of his sinus by ENT and was restarted on his home medications. The patient's blood pressure remains well controlled despite holding some of his medications, so instead of starting him on his full dose of Coreg, which is 25 mg b.i.d. at home. He was resumed on 6.25 b.i.d. The patient's PCP should consider starting him on an SAIMA inhibitor after his sinus problems resolve in order to avoid coughing, which can increase the risk for bleeding from his sinus or nasal cavity. The patient was also restarted on his aspirin and Plavix per ENT recommendations prior to discharge. Job ID: [id number]
== END 2019-08-30 19:30 | DRG 131 ==
LOC: SDC 06:57 → 2NO 13:19 → CCU 17:32 → IMCU/EMU 08-25 10:40 → 2SW 08-29 11:44
PROVIDERS: ADMIT Otolaryngology Plastic Surgery within the Head & Neck; ATTEND Otolaryngology Plastic Surgery within the Head & Neck
PROC: 09BV8ZZ Excision of Left Ethmoid Sinus, Via Natural or Artificial Opening Endoscopic (ICD-10-PCS; principal; 2019-08-23)
PROC: 09BU8ZZ Excision of Right Ethmoid Sinus, Via Natural or Artificial Opening Endoscopic (ICD-10-PCS; 2019-08-23)
PROC: 09BW8ZZ Excision of Right Sphenoid Sinus, Via Natural or Artificial Opening Endoscopic (ICD-10-PCS; 2019-08-23)
PROC: 09BR8ZZ Excision of Left Maxillary Sinus, Via Natural or Artificial Opening Endoscopic (ICD-10-PCS; 2019-08-23)
PROC: 09BX8ZZ Excision of Left Sphenoid Sinus, Via Natural or Artificial Opening Endoscopic (ICD-10-PCS; 2019-08-23)
PROC: 09BQ8ZZ Excision of Right Maxillary Sinus, Via Natural or Artificial Opening Endoscopic (ICD-10-PCS; 2019-08-23)
PROC: 30233N1 Transfusion of Nonautologous Red Blood Cells into Peripheral Vein, Percutaneous Approach (ICD-10-PCS; 2019-08-23)
PROC: 0BH17EZ Insertion of Endotracheal Airway into Trachea, Via Natural or Artificial Opening (ICD-10-PCS; 2019-08-23)
PROC: 5A1935Z Respiratory Ventilation, Less than 24 Consecutive Hours (ICD-10-PCS; 2019-08-23)
PROC: 0NB Head and Facial Bones, Excision (ICD-10-PCS; 2019-08-23)
PROC: 5A12012 Performance of Cardiac Output, Single, Manual (ICD-10-PCS; 2019-08-24)
DX: J30.89 Other allergic rhinitis (principal); I46.9 Cardiac arrest, cause unspecified; R57.8 Other shock; J96.00 Acute respiratory failure, unspecified whether with hypoxia or hypercapnia; I21.A1 Myocardial infarction type 2; D62 Acute posthemorrhagic anemia; E87.2 Acidosis; I16.1 Hypertensive emergency; Z51.5 Encounter for palliative care; J32.0 Chronic maxillary sinusitis; J32.2 Chronic ethmoidal sinusitis; J32.3 Chronic sphenoidal sinusitis; H05.232 Hemorrhage of left orbit; I25.10 Atherosclerotic heart disease of native coronary artery without angina pectoris; E11.9 Type 2 diabetes mellitus without complications; I10 Essential (primary) hypertension; Z95.1 Presence of aortocoronary bypass graft; Z96.653 Presence of artificial knee joint, bilateral; Z88.0 Allergy status to penicillin; E87.5 Hyperkalemia; E78.5 Hyperlipidemia, unspecified; M10.9 Gout, unspecified; H54.62 Unqualified visual loss, left eye, normal vision right eye
CPT/HCPCS: 36415; 36416; 36430; 70450; 70480; 71045; 80048; 82805; 83735; 84100; 84484; 85014; 85018; 85025; 85610; 86850; 86900; 86901; 92950; 93005; 93010; 94002; 94003; 94640; C2625; C9113; J0360; J1100; J1956; J2001; J2250; J2370; J2405; J2704; J2920; J2930; J3010; J3490; J7050; J7512; J7611; J7620; P9016; P9035

== ENCOUNTER 2020-03-04 21:58 | Inpatient (IN) | payer MEDICARE, OTHER ==
[2020-03-04] MEDS ORDERED: Pantoprazole 40 MG VIAL ONE (22:27)
[2020-03-04 22:28] LABS: #Basophils 0.1 thou/uL (0.0-0.2); #Eosinphils 0.1 thou/uL (0.0-0.7); #Lymphocytes 2.2 thou/uL (1.20-3.40); #Monocytes 0.5 thou/uL (0.11-0.59); #Neutrophils 4.8 thou/uL (1.40-6.50); %Basophils 0.9 % (0.0-1.0); %Eosinophils 0.7 % (0.0-10.0); %Monocytes 7.1 % (0.0-10.0); %Neutrophils 63.3 % (42.0-75.0); Hemoglobin 7.3 g/dL (14.0-18.0); Mean Corpuscular Hemoglobin 29.4 pg (27.0-31.0); Mean Corpuscular Volume 91.9 fL (78.0-98.0); Platelet Count 262 thou/uL (130-400); Red Blood Cell (RBC) Count 2.47 mill/uL (4.70-6.10); White Blood Cell (WBC) Count 7.7 thou/uL (4.8-10.8)
[2020-03-04] MEDS ORDERED: Pantoprazole 80 MG in Sodium Chloride 0.9% 100 ML IVPB SCH (22:45)
[2020-03-04 22:48] LABS: ALT (SGPT) 7 U/L (8-55); AST (SGOT) 13 U/L (5-34); Alkaline Phosphatase 62 U/L (40-110); Anion Gap 13 mmol/L (10-20); BUN (Urea Nitrogen) 40 mg/dL (8.4-25.7); Bilirubin, Total 0.2 mg/dL (0.2-1.2); Calc. Creatinine Clearance 0 mL/min (70-130); Calcium 8.2 mg/dL (7.8-10.44); Carbon Dioxide 24 mmol/L (23-31); Chloride 105 mmol/L (98-107); Estimated GFR-MDRD 65; Globulin 2.6 g/dL (2.4-3.5); Glucose 105 mg/dL (83-110); Potassium 4.3 mmol/L (3.5-5.1); Protein, Total 5.6 g/dL (5.8-8.1); Sodium 138 mmol/L (136-145)
[2020-03-05] MEDS ORDERED: Acetaminophen 325 MG TAB PO PRN (00:05)
[2020-03-05] MEDS ORDERED: Sodium Chloride 0.9% 1,000 ML IV SCH (00:05)
[2020-03-05] MEDS ORDERED: Ondansetron ODT 4 MG TAB SL PRN (00:05)
[2020-03-05] MEDS ORDERED: Ondansetron PF 4 MG/2 ML Vial IVP PRN (00:05)
--- NOTE | 2020-03-05 01:14 | PDOC.HHP ---
Hospitalist HPI - History of Present Illness gi bleeding History of Present Illness: Case of an 89y/o male with pmhx of atrial fibrillation with no AC, htn and cad who comes to hospital transfer from rehab due to episodes of coffe ground vomiting and black stools. patient is a poor historian, he apparently had a recent admission for a syncope episode. he was dx with afib in rvr and had a picc line place on his abdomn to drain an abdominal wall abscess by IR, and was discharge with rocephin and flagyl and would f/u with dr Centeno. patient states he was on his usual state of health until 3 days ago when he had an episode of coffe ground hemesis and another one today for which he was jeannine to hospital for evaluation. patient also complains of atleast 5 days of drak stools. denies chest pain abd pain palpitations sob fever or chills Hospitalist ROS - Review of Systems All other systems reviewed; all pertinent +/- noted in HPI/Subj Hospitalist History - Past Surgical History Past Surgical History: reports: CABG, Other (Colon surgery, sinus surgery, spinal surgery, bovine valve replacement) - Social History Alcohol: reports: None Drugs: reports: none - Exam General Appearance: NAD, awake alert Eye: PERRL, anicteric sclera ENT: normocephalic atraumatic, no oropharyngeal lesions Neck: supple, symmetric, no JVD, no thyromegaly Heart: RRR, no murmur, no gallops, no rubs Respiratory: CTAB, no wheezes, no rales, no ronchi Gastrointestinal: soft, non-tender, non-distended, normal bowel sounds Extremities: no cyanosis, no clubbing, no edema Skin: normal turgor, no lesions, no rashes Neurological: cranial nerve grossly intact, normal sensation to touch, no weakness Musculoskeletal: normal tone, normal strength, no muscle wasting Psychiatric: normal affect, normal behavior, A&O x 3 Hospitalist Results - Labs Result Diagrams: 03/05/20 01:20 03/04/20 22:19 Lab results: WBC 7.7 thou/uL (4.8-10.8) 03/04/20 22:19 Hgb 7.3 g/dL (14.0-18.0) L 03/04/20 22:19 Hct 22.7 % (42.0-52.0) L 03/04/20 22:19 MCV 91.9 fL (78.0-98.0) 03/04/20 22:19 Plt Count 262 thou/uL (130-400) 03/04/20 22:19 Neutrophils % 63.3 % (42.0-75.0) 03/04/20 22:19 Sodium 138 mmol/L (136-145) 03/04/20 22:19 Potassium 4.3 mmol/L (3.5-5.1) 03/04/20 22:19 Chloride 105 mmol/L (98-107) 03/04/20 22:19 Carbon Dioxide 24 mmol/L (23-31) 03/04/20 22:19 BUN 40 mg/dL (8.4-25.7) H 03/04/20 22:19 Creatinine 1.08 mg/dL (0.7-1.3) 03/04/20 22:19 Glucose 105 mg/dL (83-110) 03/04/20 22:19 Lactic Acid 3.5 mmol/L (0.5-2.2) H 03/04/20 22:38 Calcium 8.2 mg/dL (7.8-10.44) 03/04/20 22:19 Total Bilirubin 0.2 mg/dL (0.2-1.2) 03/04/20 22:19 AST 13 U/L (5-34) 03/04/20 22:19 ALT 7 U/L (8-55) L 03/04/20 22:19 Alkaline Phosphatase 62 U/L (40-110) 03/04/20 22:19 Serum Total Protein 5.6 g/dL (5.8-8.1) L 03/04/20 22:19 Albumin 3.0 g/dL (3.4-4.8) L 03/04/20 22:19 Lipase 27 U/L (8-78) 03/04/20 22:38 Hospitalist H&P A/P - Problem (1) GI bleeding Code(s): K92.2 - GASTROINTESTINAL HEMORRHAGE, UNSPECIFIED Status: Acute (2) Abdominal abscess Code(s): WGB1068 - Status: Acute (3) CAD (coronary artery disease) Code(s): I25.10 - ATHSCL HEART DISEASE OF [place] CORONARY ARTERY W/O ANG PCTRS Status: Chronic Qualifiers: Coronary Disease-Associated Artery/Lesion type: [place] artery [place] vs. transplanted heart: [place] heart Associated angina: without angina Qualified Code(s): I25.10 - Atherosclerotic heart disease of [place] coronary artery without angina pectoris (4) DM2 (diabetes mellitus, type 2) Status: Chronic Qualifiers: Diabetes mellitus mcfp insulin use: without superintendent terminal use Chronic kidney disease stage: stage 3 (moderate) (5) Dyslipidemia Code(s): E78.5 - HYPERLIPIDEMIA, UNSPECIFIED Status: Chronic (6) Gout Code(s): M10.9 - GOUT, UNSPECIFIED Status: Chronic (7) HTN (hypertension) Code(s): I10 - ESSENTIAL (PRIMARY) HYPERTENSION Status: Chronic Qualifiers: Hypertension type: essential hypertension Qualified Code(s): I10 - Essential (primary) hypertension - Plan Plan: 89y/o male with the stated pmhx who present with gi bleeding gi bleeding - npo - hg q 4hrs - transfuse 2 prbcs - gi consulted - ivfs - protonix drip atrial fibrillation - no AC, holding asa due to gi bleed - continue rate control when able to tolerate po abdominal wall abscess - abx should have been finish by now, was discharge with rocephin + flagyl - will consult dr garg as he was seeing in last admission htn - holding medication in the setting of anemia w gi bleeding dm acc + ss
[2020-03-05 01:43] LABS: Lactic Acid 3.4 mmol/L (0.5-2.2)
[2020-03-05] MEDS ORDERED: HumaLOG 300 UNITS/3 ML VIAL SC PRN (02:05)
[2020-03-05] MEDS ORDERED: Dextrose 5% in Water 1,000 ML IV PRN (02:05)
[2020-03-05] MEDS ORDERED: Dextrose 50% Abboject 50 ML SYRINGE SLOW IVP PRN (02:05)
[2020-03-05 08:00] LABS: SARS-CoV-2 NAA Rapid Test Not Detected (NotDetected)
[2020-03-05] MEDS: Lactinex Tablet PO SCH (08:09)
[2020-03-05] MEDS: Allopurinol 100 MG TAB PO SCH (08:09)
[2020-03-05] MEDS: Sodium Chloride 0.9% 1,000 ML IV SCH (08:53)
[2020-03-05] MEDS ORDERED: Iopamidol 370 76% 50 ML VIAL FS ONE (09:23)
[2020-03-05] MEDS ORDERED: Iopamidol-370 76% 500 ML 1 ML ONE (09:23)
[2020-03-05] MEDS ORDERED: Sodium Chloride 0.9% (PF) 10 ML VIAL FS PRN (09:42)
[2020-03-05 09:46] LABS: #Basophils 0.1 thou/uL (0.0-0.2); #Eosinphils 0.2 thou/uL (0.0-0.7); #Lymphocytes 2.1 thou/uL (1.20-3.40); #Monocytes 0.6 thou/uL (0.11-0.59); %Basophils 0.8 % (0.0-1.0); %Eosinophils 3.1 % (0.0-10.0); %Lymphocytes 30.4 % (21.0-51.0); %Monocytes 8.6 % (0.0-10.0); Hemoglobin 8.6 g/dL (14.0-18.0); Mean Corpuscular HGB CONC 33.7 g/dL (32.0-36.0); Mean Corpuscular Volume 91.9 fL (78.0-98.0); Platelet Count 213 thou/uL (130-400); RBC Distribution Width 14.5 % (11.5-14.5); Red Blood Cell (RBC) Count 2.76 mill/uL (4.70-6.10)
[2020-03-05 09:48] LABS: INR-International Normal Ratio 1.1; Prothrombin Time 14.3 sec (12.0-14.7)
[2020-03-05] MEDS: Pantoprazole 40 MG VIAL IVP SCH ×2 (09:51→19:59)
[2020-03-05 10:05] LABS: ALT (SGPT) Less than 7 U/L (8-55); AST (SGOT) 14 U/L (5-34); Albumin 2.8 g/dL (3.4-4.8); Alkaline Phosphatase 55 U/L (40-110); Anion Gap 9 mmol/L (10-20); BUN (Urea Nitrogen) 34 mg/dL (8.4-25.7); Bilirubin, Total 0.6 mg/dL (0.2-1.2); Calc. Creatinine Clearance 50 mL/min (70-130); Carbon Dioxide 26 mmol/L (23-31); Chloride 107 mmol/L (98-107); Estimated GFR-MDRD 70; Globulin 2.4 g/dL (2.4-3.5); Glucose 94 mg/dL (83-110); Potassium 3.9 mmol/L (3.5-5.1); Protein, Total 5.2 g/dL (5.8-8.1); Sodium 138 mmol/L (136-145)
[2020-03-05] MEDS ORDERED: PROPOFOL 200 MG/20 ML VIAL ONE (10:51)
[2020-03-05] MEDS ORDERED: Fentanyl 100 MCG/2 ML VIAL ONE (11:08)
--- NOTE | 2020-03-05 12:20 | PDOC.HOSPP ---
- Subjective Encounter Date: 03/05/20 Encounter Time: 07:45 Subjective: no abd pain or sob had hematemesis then melena and chasity blood in stools per patient - Objective Vital Signs & Weight: Vital Signs (12 hours) Temp Pulse Pulse Resp BP BP Pulse Ox 03/05/20 05:26 98.6 F 91 18 119/62 03/05/20 05:11 97.8 F 82 18 121/61 03/05/20 05:06 97.8 F 82 20 121/61 96 03/05/20 04:35 97.8 F 82 18 121/61 03/05/20 01:40 97.8 F 82 18 124/61 03/05/20 00:56 95 Weight Weight 153 lb 6 oz I&O: 03/04/20 03/05/20 03/06/20 06:59 06:59 06:59 Intake Total 860 350 Balance 860 350 Result Diagrams: 03/05/20 09:26 03/05/20 09:26 Additional Labs: Accuchecks 03/05/20 05:00 POC Glucose 117 H Hospitalist ROS - Medication Medications: Active Medications Generic Name Dose Route Start Last Admin Trade Name Freq PRN Reason Stop Dose Admin Acidophilus 1 tab 03/05/20 09:00 03/05/20 08:09 Floranex PO Not Given DAILY SUSANNA Allopurinol 100 mg 03/05/20 09:00 03/05/20 08:09 Zyloprim PO Not Given DAILY SUSANNA Sodium Chloride 1,000 mls @ 50 mls/hr 03/05/20 01:15 03/05/20 08:53 Normal Saline 0.9% IV 1,000 mls .Q20H SUSANNA Administration Metoprolol Succinate 25 mg 03/05/20 09:00 03/05/20 09:58 Toprol Xl PO 25 mg DAILY SUSANNA Administration Pantoprazole Sodium 40 mg 03/05/20 09:00 03/05/20 09:51 Protonix IVP Not Given Q12HR SUSANNA Pneumococcal Polyvalent Vaccine 0.5 ml 03/05/20 21:00 03/05/20 04:04 Pneumovax 23 IM 03/05/20 21:01 Not Given .ONCE ONE - Exam General Appearance: awake alert, ill appearing Eye: anicteric sclera ENT: normocephalic atraumatic, dry oral mucosa Neck: supple, no JVD Heart: RRR, no murmur Respiratory: no wheezes, no rales, rhonchi Gastrointestinal: soft, non-tender, non-distended, normal bowel sounds Gastrointestinal - other findings: cath+ Extremities: no cyanosis Neurological: cranial nerve grossly intact, no focal deficits Hosp A/P (1) GI bleed Code(s): K92.2 - GASTROINTESTINAL HEMORRHAGE, UNSPECIFIED Status: Acute Qualifiers: GI bleed type/associated pathology: unspecified gastrointestinal hemorrhage type Qualified Code(s): K92.2 - Gastrointestinal hemorrhage, unspecified (2) Abdominal abscess Code(s): ELG8976 - Status: Chronic (3) CAD (coronary artery disease) Code(s): I25.10 - ATHSCL HEART DISEASE OF [place] CORONARY ARTERY W/O ANG PCTRS Status: Chronic Qualifiers: Coronary Disease-Associated Artery/Lesion type: [place] artery [place] vs. transplanted heart: [place] heart Associated angina: without angina Qualified Code(s): I25.10 - Atherosclerotic heart disease of [place] coronary artery without angina pectoris (4) DM2 (diabetes mellitus, type 2) Status: Chronic Qualifiers: Diabetes mellitus terminal carman insulin use: without terminal carman use (5) Dyslipidemia Code(s): E78.5 - HYPERLIPIDEMIA, UNSPECIFIED Status: Chronic (6) Gout Code(s): M10.9 - GOUT, UNSPECIFIED Status: Chronic Qualifiers: Gout site: unspecified site (7) HTN (hypertension) Code(s): I10 - ESSENTIAL (PRIMARY) HYPERTENSION Status: Chronic Qualifiers: Hypertension type: essential hypertension Qualified Code(s): I10 - Essential (primary) hypertension - Plan for endoscopy today, is npo h/h is stable for now continue protonix, iv fluids, ceftriaxone and flagyl still has abd cath with very minimal drainage in the bag hemostable
[2020-03-05 12:38] VITALS: BMI 22.6
[2020-03-05] MEDS ORDERED: cefTRIAXone\\ROCEPHIN 2 GM in Sodium Chloride 0.9% 100 ML IVPB SCH (13:00)
[2020-03-05 13:49] LABS: Hemoglobin 9.7 g/dL (14.0-18.0)
[2020-03-05] MEDS ORDERED: metroNIDAZOLE 500 MG in Premix Bag 1 BAG IVPB SCH (14:00)
--- NOTE | 2020-03-05 15:33 | CT ---
CT OF THE ABDOMEN AND PELVIS WITH IV CONTRAST INDICATION: Follow-up of abdominal drainage COMPARISON: CT peritoneal abscess drainage evaluation dated 02/15/[address] the abdomen and pelvis dated 02/15/2020. FINDINGS: ABDOMEN: Lung bases: Trace bilateral pleural effusions with bibasilar atelectasis. There is stable aortic valv ular replacement. There are prominent coronary artery and thoracic aortic calcifications. Liver: No focal lesion. Gallbladder: Contracted Pancreas: Normal. Adrenal glands: Normal. Spleen: Normal. Kidneys and ureters: Stable right nephrolithiasis. No focal renal lesion. No hydronephrosis. Vasculature: There are moderate vascular calcifications seen involving the visualized vasculature. Lymph nodes:No lymphadenopathy. Free fluid in abdomen:There is a right lower quadrant percutaneous pigtail catheter. Previously seen right lower quadrant fluid collection is no longer identified. PELVIS: Small and large bowel: Normal Appendix:Not definitely seen Bladder: Normal. Rectal and perirectal soft tissues:Normal. Reproductive structures: Normal. Free fluid in pelvis: Mild free fluid Lymphadenopathy pelvis: No lymphadenopathy is evident. Osseous structures: No acute osseous abnormality. No destructive osteolytic or osteoblastic lesion i s identified. There is scattered degenerative and osteoarthritic changes. Laminectomy changes of the lower lumbar spine are stable. Soft tissues:There is mild anasarca IMPRESSION: 1. Resolution of previously seen percutaneously drained right lower quadrant abscess. No residual flu id collection is evident. The right lower quadrant percutaneous drain is unchanged in position. 2. Small bilateral pleural effusions and mild anasarca may reflect volume overload. 3. Stable right nephrolithiasis.
[2020-03-05 17:12] LABS: Hemoglobin 9.8 g/dL (14.0-18.0)
--- NOTE | 2020-03-05 17:30 | OP ---
DATE OF PROCEDURE: 03/05/2020 PROCEDURES PERFORMED: Esophagogastroduodenoscopy, control of hemorrhage. PREPROCEDURE DIAGNOSES: 1. History of abdominal abscess, drained on 02/19/2020 by Interventional Radiology. 2. Status post course of IV antibiotics. 3. Melena and hematemesis, and in the past 24 hours, drop in hemoglobin. ANESTHESIA: TIVA. POSTPROCEDURE DIAGNOSES: Duodenal ulcers 2, both at apex of the bulb, one is 7 mm in size inferior and one is 7 mm in size superior, both with mild oozing, both cauterized with 7-[place] heater probe. RECOMMENDATIONS: 1. We will get a CT scan of the abdomen and pelvis to evaluate his previous abscesses. 2. Monitor hemoglobin and hematocrit. 3. IV PPI q.12 hours. DESCRIPTION OF PROCEDURE: After the patient was informed of the risks, benefits, and possible complications of endoscopy including perforation, reaction to medication, aspiration, informed consent was obtained. The patient was brought to the endoscopy suite, where he was sedated in gradual fashion. Once he was comfortable, a bite block was placed in the incisural orifice. The endoscope was advanced through esophagus, stomach, into second and third portions of the duodenum and slowly removed. The esophagus and stomach were normal in forward and retroflexed views. In the duodenal bulb, at the apex, there was a small 7 mm ulcer inferiorly, yellow base, with some oozing at the site and a small vessel oozing, this was cauterized with 7-[place]rist[place] heater probe. There was no large visible vessel in the ulcer base. Likewise superiorly at the apex of the duodenal bulb, there was a 7 mm ulcer, yellow, base with a slight vessel oozing at the lateral aspect that was cauterized as well. There were no large vessels in the base and no clots. The duodenum beyond this was normal up to third portion. The area of the ulcers was then re-evaluated and found to be stable without high-risk stigmata for ongoing bleeding. Stomach was re-evaluated. No other lesions noted. There was no gastritis to biopsy. The duodenum was normal. The scope was removed. The patient tolerated the procedure well. There were no complications. Job ID: [id number]
--- NOTE | 2020-03-05 19:24 | CON ---
DATE OF CONSULTATION: 03/05/2020 HISTORY OF PRESENT ILLNESS: An 89-year-old whom I had recently seen just a few days ago when he was admitted with a history of coronary artery disease, CKD stage 3 , and aortic stenosis. He had sinus surgery and lost vision in his left eye. Now, we have the operative report from the procedure and it looks like he had a herniation of the orbital fat with a bleeding vessel in the orbital fat and then he developed some proptosis. The intraocular pressures are noted to be within normal limits , so a medial orbital wall decompression was recommended. It looks like the vision loss was associated with this complication. Anyways, when I saw him a few days ago, he had presented with a syncopal event and confusional state. He has had some headaches, but the remainder of his review of systems was not remarkable. We had been asked to see him because of neutrophilia of uncertain etiology, make a long story short. After workup, a pelvic abscess was identified, presumably due to diverticulitis, so the area was aspirated percutaneously with radiology intervention. The microbiology revealed a Citrobacter, Enterobacter viridans, Strep. He was kept on Merrem and was transferred to the rehab. Now, the patient was brought back because of GI bleed, both episodes of coffee-ground and melena. It looks like he was discharged on Rocephin and Flagyl. The patient had, I believe , an upper endoscopy just recently and reportedly identified a small ulcer. I do not have the procedure transcribed yet. Currently, Mr. Rogel is feeling well. He denies any headaches. No sore throat, odynophagia, or dysphagia. No dyspnea, cough, or sputum production. No abdominal pain. Still with a percutaneous drain in the pelvic area. He is voiding in the urinal. Still with vision loss in the left side. PAST MEDICAL HISTORY: 1. Coronary artery disease with stenting and bypass graft surgery. 2. It looks like he has a ruptured segment of pectoralis muscle, left side. 3. Sinus surgery with bleeding and hematoma in the medial orbit area, which had to be decompressed. 4. He has developed vision impairment in left side following this event. 5. Newly identified pelvic abscess, which seems to be secondary to ruptured diverticulum. SOCIAL HISTORY: Drinks occasionally. Never smoker. Lives in [place]. ALLERGIES: PENICILLIN WITH RASH. FAMILY HISTORY: Noncontributory. CURRENT MEDICATIONS: He is on: 1. Ceftriaxone. 2. Metronidazole. PHYSICAL EXAMINATION: VITAL SIGNS: Temperature is normal, blood pressure 150/71, pulse 65, respirations 18, and O2 saturation 96. SKIN: The patient has a percutaneous pelvic drain. HEENT: Ocular movements conjugate. Oral cavity normal. LUNGS: Symmetric, clear breath sounds. HEART: S1 and S2. Regular rate. ABDOMEN: Soft, not distended. No tenderness. No organomegaly. No bladder distention. No genital abnormalities. EXTREMITIES: No joint inflammatory activity. No edema. Pulses 1+ in dorsalis pedis. Moves extremities equally. LABORATORY DATA: Sodium 138, creatinine 1.01, AST 14, ALT less than 7, and albumin 2.8. White cell count 7.0, hemoglobin 8.6, and platelets 213 with normal differential. SARS-CoV was not detected. Repeat abdomen and pelvis CT with resolution of the percutaneous drain in the right lower quadrant abscess. No residual fluid collection evident. ASSESSMENT: 1. Coronary artery disease. 2. Recent sinus surgery with postoperative vision loss. 3. Pelvic abscess secondary to probably ruptured diverticulitis. The abscess is being treated. PLAN: The plan now is to remove the drainage tube and follow the images. Switch him to meropenem in view of the final identification of the organisms of Enterobacter aerogenes or could switch him to oral Quinolone plus Flagyl. Discontinue the PICC line and continue the oral treatment for another 2 weeks approximately following removal of the percutaneous drain. Job ID: [id number] MTDD
[2020-03-05] MEDS: Atorvastatin Calcium 40 MG TAB PO SCH (19:59)
[2020-03-05] MEDS: metroNIDAZOLE 500 MG TAB PO SCH (19:59)
[2020-03-05] MEDS ORDERED: Pantoprazole 40 MG VIAL IVP SCH (21:00)
[2020-03-05 21:31] LABS: Hemoglobin 9.4 g/dL (14.0-18.0)
--- NOTE | 2020-03-06 08:07 | CON ---
DATE OF CONSULTATION: REASON FOR CONSULTATION: GI bleed. HISTORY OF PRESENT ILLNESS: Mr. Rogel is an 89-year-old gentleman who has history of abdominal abscess, likely diverticular, which he was in the hospital for up until his discharge on 02/21. He had that drained and was on antibiotics in the outpatient setting, IV Flagyl and Rocephin. A couple of days ago, he had an episode of coffee-ground emesis apparently while at rehab facility. Apparently, he had 3 episodes of coffee-ground emesis and maybe some melena. He has been on some Aleve at times. He is also on baby aspirin and on Plavix, he reports. His hemoglobin was 11 on 02/19. On admission, it was 7.3 and this morning it is 8.6. His white count is 7. INR is 1.1. Sodium 138, potassium 3.9, BUN and creatinine 34 and 1.01, this is similar to his labs when he was here earlier in the month. Liver function tests were normal. PAST MEDICAL HISTORY: 1. Diabetes. 2. Hyperlipidemia. 3. Hypertension. 4. Coronary artery disease. 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 PAST SURGICAL HISTORY: He has had previous surgery includes: 1. Coronary artery bypass grafting. 2. Spine surgery. 3. Sinus surgery. 4. He had a bovine aortic valve replacement. SOCIAL HISTORY: Drinks alcohol occasionally. Lives in [place], [place]. Does not smoke. His passed about 12 years ago. ALLERGIES: PENICILLIN WITH RASHES. MEDICATIONS: Prior to admission: 1. Atorvastatin. 2. Metoprolol. 3. Seroquel. 4. Losartan. 5. Nifedipine. 6. Metformin. 7. Presumptively still on the antibiotics. 8. Allopurinol. Present medications: 1. Protonix drip. 2. Zolpidem. 3. Insulin sliding scale. 4. Zofran p.r.n. 5. Normal saline at 50. REVIEW OF SYSTEMS: Negative for dysphagia, odynophagia, or abdominal pain. Negative for fever or chills. PHYSICAL EXAMINATION: VITAL SIGNS: Temperature is 98, respirations 18, pulse is 82, and blood pressure 119/62. GENERAL: He is frail and thin. He has temporal wasting. HEENT: His oropharynx without lesions. NECK: Supple without adenopathy. LUNGS: Clear. HEART: Regular rate and rhythm without clicks or murmurs. ABDOMEN: Soft and nontender. There is a drain in the midline abdomen. LABORATORY DATA: As per HPI. IMAGING STUDIES: None. RECOMMENDATIONS: 1. EGD for history of hematemesis. 2. He is going to need his abdomen re-CT'd to see what is going on with his abscess, it was last done on 02/14. He probably needs to be continued on the antibiotics, the Flagyl and Rocephin, and will need to probably be re-evaluated by Dr. Centeno. Job ID: [id number]
[2020-03-06] MEDS: metroNIDAZOLE 500 MG TAB PO SCH ×3 (09:56→19:43)
[2020-03-06] MEDS: Lactinex Tablet PO SCH (09:56)
[2020-03-06] MEDS: Allopurinol 100 MG TAB PO SCH (09:57)
[2020-03-06] MEDS: Pantoprazole 40 MG VIAL IVP SCH ×2 (09:57→19:43)
--- NOTE | 2020-03-06 11:56 | PDOC.HOSPP ---
- Subjective Encounter Date: 03/06/20 Encounter Time: 09:25 Subjective: no pain, feels better no sob - Objective Vital Signs & Weight: Vital Signs (12 hours) Temp Pulse Resp BP Pulse Ox 03/06/20 09:50 98.2 F 63 16 172/72 H 97 03/06/20 07:30 98.1 F 65 18 176/79 H 96 03/06/20 04:39 98.3 F 67 16 167/74 H 97 Weight Admit Weight 153 lb 6 oz Weight 153 lb 6 oz I&O: 03/05/20 03/06/20 03/07/20 06:59 06:59 06:59 Intake Total 860 1450 Balance 860 1450 Result Diagrams: 03/06/20 00:45 03/05/20 09:26 Additional Labs: Accuchecks 03/06/20 03/06/20 03/05/20 11:03 04:22 19:29 POC Glucose 105 86 166 H 03/05/20 13:10 POC Glucose 109 Hospitalist ROS - Medication Medications: Active Medications Generic Name Dose Route Start Last Admin Trade Name Freq PRN Reason Stop Dose Admin Acidophilus 1 tab 03/05/20 09:00 03/06/20 09:56 Floranex PO 1 tab DAILY SUSANNA Administration Allopurinol 100 mg 03/05/20 09:00 03/06/20 09:57 Zyloprim PO 100 mg DAILY SUSANNA Administration Atorvastatin Calcium 40 mg 03/05/20 21:00 03/05/20 19:59 Lipitor PO 40 mg HS SUSANNA Administration Sodium Chloride 1,000 mls @ 50 mls/hr 03/05/20 01:15 03/05/20 08:53 Normal Saline 0.9% IV 1,000 mls .Q20H SUSANNA Administration Levofloxacin 500 mg 03/06/20 06:00 03/06/20 05:38 Levaquin PO 500 mg 0600 SUSANNA Administration Metronidazole 500 mg 03/05/20 21:00 03/06/20 09:56 Flagyl PO 500 mg TID SUSANNA Administration Pantoprazole Sodium 40 mg 03/05/20 09:00 03/06/20 09:57 Protonix IVP 40 mg Q12HR SUSANNA Administration Quetiapine Fumarate 25 mg 03/05/20 21:00 03/05/20 19:59 Seroquel PO 25 mg HS SUSANNA Administration - Exam General Appearance: awake alert Eye: PERRL, anicteric sclera ENT: no oropharyngeal lesions, moist mucosa Neck: supple, no JVD Heart: RRR, no murmur Respiratory: no wheezes, no rales Gastrointestinal: soft, non-distended, normal bowel sounds, no guarding, no rigidity Extremities: no cyanosis, no edema Neurological: cranial nerve grossly intact, no focal deficits Hosp A/P (1) GI bleed Code(s): K92.2 - GASTROINTESTINAL HEMORRHAGE, UNSPECIFIED Status: Acute Qualifiers: GI bleed type/associated pathology: unspecified gastrointestinal hemorrhage type Qualified Code(s): K92.2 - Gastrointestinal hemorrhage, unspecified (2) Abdominal abscess Code(s): ACZ0221 - Status: Chronic (3) CAD (coronary artery disease) Code(s): I25.10 - ATHSCL HEART DISEASE OF [place] CORONARY ARTERY W/O ANG PCTRS Status: Chronic Qualifiers: Coronary Disease-Associated Artery/Lesion type: [place] artery [place] vs. transplanted heart: [place] heart Associated angina: without angina Qualified Code(s): I25.10 - Atherosclerotic heart disease of [place] coronary artery without angina pectoris (4) DM2 (diabetes mellitus, type 2) Status: Chronic Qualifiers: Diabetes mellitus assisted insulin use: without assisted use (5) Dyslipidemia Code(s): E78.5 - HYPERLIPIDEMIA, UNSPECIFIED Status: Chronic (6) Gout Code(s): M10.9 - GOUT, UNSPECIFIED Status: Chronic Qualifiers: Gout site: unspecified site (7) HTN (hypertension) Code(s): I10 - ESSENTIAL (PRIMARY) HYPERTENSION Status: Chronic Qualifiers: Hypertension type: essential hypertension Qualified Code(s): I10 - Essential (primary) hypertension - Plan s/p endoscopy, had duodenal ulcers s/p cauterization 03/05 got his abd drain removed today, CT abd showed resolved abscess. h/h is stable continue protonix, levaquin, flagyl likely dc plan in am to [facility], d/w CM hemostable
--- NOTE | 2020-03-06 12:53 | SPC ---
Fluoroscopic guided removal of peritoneal abscess drainage catheter TECHNIQUE: Existing catheter and surrounding skin were prepped in usual sterile fashion. Under fluoroscopic guid ance, the tube was cut with sterile scissors. The tube was removed without necessity for placement of guidewire to straighten out the pigtail loop. Patient tolerated procedure well. FINDINGS: Single fluoroscopic side image no longer demonstrates the drainage catheter in the pelvis.. IMPRESSION: Successful removal of abscess drainage catheter
--- NOTE | 2020-03-06 13:01 | PRG ---
DATE OF SERVICE: 03/06/2020 SUBJECTIVE: The patient feels fine without any complaint. No overt bleeding such as melena or coffee ground. He has no nausea or vomiting. Tolerating full liquids. OBJECTIVE: VITAL SIGNS: Temperature 97.8, blood pressure 163/76, and pulse 60. GENERAL: He is alert, sitting up, no distress. HEENT: Anicteric sclerae. CV: Normal S1 and S2. Regular rate and rhythm. CHEST: Chest exam shows breath sound. ABDOMEN: Soft and flat. No distention. No tympany. He has active bowel sounds. EXTREMITIES: No edema. LABORATORY DATA: Hemoglobin 9.0 and hematocrit 27.0. DIAGNOSTIC DATA: Abdominal and pelvic CT yesterday showed resolution of his pelvic abscess. The drain was pulled this morning. IMPRESSION: 1. Status post upper gastrointestinal bleed with EGD showing 2 duodenal bulb ulcers with oozing, status post cauterization with good hemostasis. No further evidence of bleeding since with stable blood count. 2. Resolution of pelvic abscess, likely diverticular in origin. RECOMMENDATION: 1. Diet can be advanced as tolerated. 2. We will transition to p.o. pantoprazole 40 mg daily once he gets on regular diet. 3. If stable, the patient can be discharged to home with plan on outpatient colonoscopy in [address] to [address] once he finished all of his outpatient oral antibiotic therapy. 4. We will follow. Job ID: [id number]
[2020-03-06] MEDS ORDERED: NIFEdipine XL 60 MG TAB PO SCH (18:45)
[2020-03-06] MEDS ORDERED: Losartan 25 MG TAB PO SCH (18:45)
[2020-03-06] MEDS: Atorvastatin Calcium 40 MG TAB PO SCH (19:43)
[2020-03-06] MEDS: Sodium Chloride 0.9% 1,000 ML IV SCH (19:45)
[2020-03-07] MEDS ORDERED: Acetaminophen 325 MG TAB PO SCH (06:45)
[2020-03-07] MEDS ORDERED: metFORMIN 500 MG TAB PO SCH (08:00)
[2020-03-07] MEDS: Allopurinol 100 MG TAB PO SCH (08:46)
[2020-03-07] MEDS: Lactinex Tablet PO SCH (08:51)
[2020-03-07] MEDS: metroNIDAZOLE 500 MG TAB PO SCH (08:51)
[2020-03-07] MEDS: Pantoprazole 40 MG VIAL IVP SCH (08:52)
[2020-03-07] MEDS ORDERED: NIFEdipine XL 90 MG TAB PO SCH (09:00)
[2020-03-07] MEDS ORDERED: Losartan 25 MG TAB PO SCH (09:00)
[2020-03-07 11:22] VITALS: TEMP 98.1
[2020-03-07 11:45] VITALS: BP 107/61
--- NOTE | 2020-03-07 11:46 | PRG ---
DATE OF SERVICE: 03/07/2020 SUBJECTIVE: Mr. 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 He has no abdominal pain or nausea or vomiting. He is tolerating his diet. OBJECTIVE: VITAL SIGNS: Temperature is 98.1, pulse 90, and blood pressure 90/58 to 130/64. ABDOMEN: Soft, nontender, and nondistended. Bowel sounds are present. LABORATORY DATA: His hemoglobin remained stable at 9.0. IMPRESSION: 1. Duodenal ulcers status post cautery. He had been taking nonsteroidal anti-inflammatory drugs prior to admission. His hemoglobin is stable today. 2. Pelvic abscess previously, which was likely diverticular in origin. He had a drain, which has since been removed. RECOMMENDATIONS: 1. Follow up in the office with Dr. Ortiz. Followup colonoscopy regarding the pelvic abscess will be considered at that time. 2. Continue proton pump inhibitor. Job ID: [id number]
--- NOTE | 2020-03-07 14:43 | DIS ---
DATE OF ADMISSION: 03/04/2020 DATE OF DISCHARGE: 03/07/2020 DISCHARGE DISPOSITION: To [facility]. PRIMARY DISCHARGE DIAGNOSES: 1. GI bleed secondary to duodenal ulcers x2. 2. History of intraabdominal abscess, likely diverticular which is resolved status post removal of drainage tube. 3. Coronary artery disease. 4. Diabetes mellitus type 2. 5. Dyslipidemia. 6. Gout. 7. Hypertension. 8. Likely underlying dementia. 9. Acute blood loss anemia. PROCEDURES DONE DURING HOSPITALIZATION: The patient has had upper endoscopy done on 03/05/2020, which showed duodenal ulcers x2, both at the apex of the bulb, status post cauterization, abdominal and pelvic CAT scan with contrast done on 03/05/2020 showed resolution of previously seen percutaneously drained right lower quadrant abscess. No residual fluid collection was evident. H and H of 9 and 27. Platelet count is 213. Discharge BUN and creatinine is 34 and 1.0. Albumin is 2.8. COVID-19 PCR was not detected on 03/04/2020. DISCHARGE MEDICATIONS: 1. Aspirin 81 mg p.o. daily. 2. Lipitor 40 mg p.o. nightly. 3. Allopurinol 100 mg p.o. daily. 4. Vitamin D3 2000 units p.o. daily. 5. Cozaar 50 mg p.o. daily. 6. Metformin 500 mg p.o. twice daily. 7. Procardia. 8. Nifedipine extended release 90 mg p.o. daily. 9. Seroquel 25 mg p.o. nightly. 10. Levaquin 500 mg p.o. daily for another 13 days for the complete treatment of the intraabdominal abscess. 11. Flagyl 500 mg p.o. 3 times daily for 13 days. 12. Toprol-XL 25 mg p.o. daily. 13. Protonix 40 mg p.o. daily. 14. MiraLAX 17 g twice daily. ALLERGIES: NO KNOWN DRUG ALLERGIES. INPATIENT CONSULTATION: 1. Dr. Ortiz for Gastroenterology. 2. Dr. Centeno for Infectious Disease. DISCHARGE PLAN: The patient will follow up with Dr. Ortiz in 2 to 3 weeks for outpatient colonoscopy and needs follow up with Dr. Eastman, his primary care physician in 1 week. BRIEF COURSE DURING HOSPITALIZATION: The patient initially got admitted on the with complaints of bleeding per rectum and having coffee-grounds emesis. His initial hemoglobin was 7 g. In view of this presentation, the patient has had serial H and H done and he was on Protonix drip initially. He has had GI consultation with Dr. Ortiz. The patient was found to have had two duodenal ulcers, both were oozing and was cauterized. Post this procedure, the patient has not had any further drop in his H and H. The patient was given 2 units of packed cell transfusion during his stay. His H and H have remained stable. In view of prior intraabdominal abscess and indwelling drainage tube, the patient has had a CT of the abdomen and pelvis with contrast done. This imaging study did not reveal any residual content/abscess. His drainage tube was removed. His PICC line was also removed. He has had consultation with Dr. Centeno. Jacobo has recommended continuation of Levaquin and Flagyl for another 13 days to complete a full course of treatment for his intraabdominal abscess. This intraabdominal abscess is suspected to be due to prior diverticulitis. He will need outpatient colonoscopy in 2 to 3 weeks once he completes a full course of antibiotics. He needs to follow up with Dr. Ortiz in the outpatient setting. Please note, I have seen and examined the patient on the day of discharge. A total of 35 minutes was spent on discharge plan. Job ID: [id number]
== END 2020-03-07 12:18 | DRG 378 ==
LOC: ERS 21:58 → T4-A 23:13
PROVIDERS: ADMIT Internal Medicine; ATTEND Internal Medicine
PROC: 0W3P8ZZ Control Bleeding in Gastrointestinal Tract, Via Natural or Artificial Opening Endoscopic (ICD-10-PCS; principal; 2020-03-05)
PROC: 30233N1 Transfusion of Nonautologous Red Blood Cells into Peripheral Vein, Percutaneous Approach (ICD-10-PCS; 2020-03-05)
DX: K26.4 Chronic or unspecified duodenal ulcer with hemorrhage (principal); D62 Acute posthemorrhagic anemia; Z20.828 Contact with and (suspected) exposure to other viral communicable diseases; I25.10 Atherosclerotic heart disease of native coronary artery without angina pectoris; E78.5 Hyperlipidemia, unspecified; M10.9 Gout, unspecified; E11.22 Type 2 diabetes mellitus with diabetic chronic kidney disease; I12.9 Hypertensive chronic kidney disease with stage 1 through stage 4 chronic kidney disease, or unspecified chronic kidney disease; I48.91 Unspecified atrial fibrillation; N18.3 Chronic kidney disease, stage 3 (moderate); F03.90 Unspecified dementia, unspecified severity, without behavioral disturbance, psychotic disturbance, mood disturbance, and anxiety; Z95.1 Presence of aortocoronary bypass graft; Z98.890 Other specified postprocedural states; Z95.3 Presence of xenogenic heart valve; Z79.4 Long term (current) use of insulin; Z87.19 Personal history of other diseases of the digestive system
CPT/HCPCS: 36415; 36416; 36430; 74177; 76000; 80053; 83605; 83690; 85014; 85018; 85025; 85610; 86850; 86900; 86901; 87635; C9113; J0696; J2704; J3010; J3490; P9016; Q9967; U0002; U0003

== ENCOUNTER 2020-03-13 13:01 | Inpatient (IN) | payer MEDICARE, OTHER ==
[2020-03-13 13:39] LABS: #Basophils 0.1 thou/uL (0.0-0.2); #Eosinphils 0.3 thou/uL (0.0-0.7); #Lymphocytes 1.8 thou/uL (1.20-3.40); #Monocytes 0.9 thou/uL (0.11-0.59); #Neutrophils 10.1 thou/uL (1.40-6.50); %Basophils 0.4 % (0.0-1.0); %Eosinophils 1.9 % (0.0-10.0); %Lymphocytes 13.5 % (21.0-51.0); %Monocytes 6.8 % (0.0-10.0); %Neutrophils 77.3 % (42.0-75.0); Hemoglobin 10.8 g/dL (14.0-18.0); Mean Corpuscular HGB CONC 31.8 g/dL (32.0-36.0); Mean Corpuscular Hemoglobin 29.8 pg (27.0-31.0); Mean Corpuscular Volume 93.7 fL (78.0-98.0); Mean Platelet Volume 8.2 fL (7.4-10.4); Platelet Count 280 thou/uL (130-400); RBC Distribution Width 15.1 % (11.5-14.5); Red Blood Cell (RBC) Count 3.63 mill/uL (4.70-6.10); White Blood Cell (WBC) Count 13.1 thou/uL (4.8-10.8)
[2020-03-13 14:07] LABS: ALT (SGPT) Less than 7 U/L (8-55); AST (SGOT) 11 U/L (5-34); Albumin 3.3 g/dL (3.4-4.8); Alkaline Phosphatase 69 U/L (40-110); Anion Gap 12 mmol/L (10-20); BUN (Urea Nitrogen) 13 mg/dL (8.4-25.7); Bilirubin, Total 0.6 mg/dL (0.2-1.2); CK (CPK) 29 U/L (30-200); Calc. Creatinine Clearance 0 mL/min (70-130); Calcium 8.4 mg/dL (7.8-10.44); Carbon Dioxide 26 mmol/L (23-31); Chloride 101 mmol/L (98-107); Estimated GFR-MDRD 63; Globulin 2.8 g/dL (2.4-3.5); Glucose 105 mg/dL (83-110); Lipase 14 U/L (8-78); Potassium 3.8 mmol/L (3.5-5.1); Protein, Total 6.1 g/dL (5.8-8.1); Sodium 135 mmol/L (136-145)
--- NOTE | 2020-03-13 14:22 | RAD ---
EXAM: Single view of the chest HISTORY: Syncope COMPARISON: 02/12/2020 FINDINGS: Single view of the chest shows a normal sized cardiomediastinal silhouette. Atheroscleroti c calcifications are seen in the aorta. There is stable elevation the right hemidiaphragm. There is no evidence of consolidation, mass, or pleural effusion. Degenerative changes are seen in the spine. Surgical clips are seen in the right axilla. IMPRESSION: No evidence of acute cardiopulmonary disease
--- NOTE | 2020-03-13 14:29 | CT ---
EXAM: CT brain without contrast HISTORY: Multiple syncopal episodes COMPARISON: 02/07/2020 TECHNIQUE: Multiple contiguous axial images were obtained and a CT of the brain without contrast. FINDINGS: There are scattered hypodensities in the subcortical and periventricular white matter consi stent with small vessel ischemic disease. There is no evidence of hydrocephalus, intracranial hemorrhage, or extra-axial fluid collection. The calvarium and overlying soft tissues are unremarkable. Mucosal thickening is seen within some of the anterior ethmoid air cells and frontal sinuses. The mastoid air cells are well aerated. IMPRESSION: No evidence of acute intracranial abnormality
[2020-03-13] MEDS ORDERED: Aspirin Chewable 81 MG TAB ONE (14:30)
[2020-03-13 14:32] LABS: CKMB 1.1 ng/mL (0-6.6)
[2020-03-13] MEDS ORDERED: Dextrose 50% Abboject 50 ML SYRINGE SLOW IVP PRN (16:54)
[2020-03-13] MEDS ORDERED: Dextrose 5% in Water 1,000 ML IV PRN (16:54)
[2020-03-13] MEDS ORDERED: Insulin Regular 300 UNITS/3 ML VIAL SC PRN (16:54)
--- NOTE | 2020-03-13 17:24 | HP ---
PCP: Dr. Dawson CHIEF COMPLAINT: "I was passed out." HISTORY OF PRESENT ILLNESS: The patient is a very pleasant 89-year-old gentleman with multiple comorbidities including CAD with history of CABG, aortic stenosis status post aortic valve replacement, diabetes, hypertension, peptic ulcer disease, gout, dyslipidemia, paroxysmal atrial fibrillation, and history of recurrent syncope, who presented to the ED with complaint of syncope and collapse. Apparently, the patient had this recurrent problems in the past. He was recently discharged from our hospital on 03/07/2020. He was admitted for GI bleed secondary to peptic ulcer disease. He was subsequently discharged to long term for further rehab. While there, it was reported that he had a couple episodes where he was passed out for about 5 to 10 seconds. The patient reports he had no recollection of the event. There was no postictal noted. He denies any urinary or bowel incontinence. He denies any chest pain. No focal weakness. Today, he had another episode, for that reason, he was brought into the ED for further evaluation. Initial workup in the ED [place] [address], he is afebrile. D- dimer slightly elevated. He is not hypoxic or tachycardic on arrival. His troponin is mildly elevated at 0.3 and BNP 170. Chest x-ray, no acute cardiopulmonary process. CT head was unremarkable for acute intracranial abnormality. Given his symptomatology, hospitalist was asked to admit the patient for further workup. It should be noted that the patient on multiple antihypertensive medications, and his blood pressure was noted slightly hypotensive on arrival. His EKG was non-discernable due to artifacts. PAST MEDICAL HISTORY: 1. CAD with history of CABG. 2. Aortic stenosis status post aortic valve replacement. 3. Diabetes. 4. Hypertension. 5. Dyslipidemia. 6. Gout. 7. Peptic ulcer disease. PAST SURGICAL HISTORY: 1. CABG. 2. Spinal surgery. 3. Aortic valve replacement. 4. Sinus surgery. SOCIAL HISTORY: The patient denies any history of alcohol or drug use. FAMILY HISTORY: The patient denies any family history of heart disease. REVIEW OF SYSTEMS: Complete review of systems has been assessed and discussed with the patient. Negative and positive pertinent symptoms noted in HPI. Otherwise, complete review negative. LABORATORY DATA: Troponin 0.[address] head was negative for acute intercranial abnormality. D-dimer 5.25. Lipase 14. CPK 29. Sodium is 135, potassium 3.8, chloride is 101, carbon dioxide 26, anion gap 12, BUN 13, creatinine is 1.1, calcium 8.4, glucose 105, and albumin 3.3. AST and ALT within normal limits. White count 13.1, hemoglobin 10.8, hematocrit 34, and platelet 280. Chest x-ray, no evidence of acute cardiopulmonary process. CT brain without contrast, no evidence of acute intracranial abnormalities. Physical Exam: General Appearance: NAD, AAO x3 HEENT: Normal cephalic/atraumatic, mucous membrane is moist. Neck: Supple, no lymphadenopathy, NO JVD Cardiovascular: RRR, S1 S2 noted, 2/6 murmur Respiratory: CTAB Abd: soft nontender ND, + perc scar Ext: no edema Neurologic: CN II-XII grossly intact, no focal weakness Psych: AAO x3, normal affect Skin: No rash ALLERGIES: PENICILLIN. HOME MEDICATIONS: 1. Aspirin 81 mg p.o. daily. 2. Lipitor 40 mg p.o. at bedtime. 3. Allopurinol 100 mg p.o. daily. 4. Vitamin D3 of 2000 units p.o. daily. 5. Cozaar 50 mg p.o. daily. 6. Metformin 500 mg p.o. twice daily. 7. Nifedipine extended release 90 mg p.o. daily. 8. Seroquel 25 mg at bedtime. 9. Toprol-XL 25 mg p.o. daily. 10. Protonix 40 mg p.o. daily. 11. MiraLAX 17 g p.o. twice daily. 12. Levaquin 500 mg p.o. daily. 13. Flagyl 500 mg t.i.d. ASSESSMENT AND PLAN: This is a pleasant 89-year-old gentleman with multiple comorbidities including coronary artery disease with history of coronary artery bypass graft, aortic stenosis status post aortic valve replacement, diabetes, and hypertension, who was recently discharged from our hospital for gastrointestinal bleed secondary to peptic ulcer disease. While at rehab, the patient had recurrent episodes of syncope and collapse. 1. Recurrent syncope and collapse - likely multifactorial, I suspect maybe related to medications. It appeared that the patient is on multiple blood pressure medications. His blood pressure slightly hypotensive on arrival. Arrhythmias cannot be ruled out at this point. His initial EKG is non-discernable due to artifacts. CT head was negative, I doubt TOOLS DEVELOPER related as there was no focal weakness on exam. His troponin is mildly elevated, but denies any chest pain. We will admit him to tele for observation. We will continue with cycle enzymes. We will check orthostatic blood pressure, and 2D echo to assess left ventricular function, and valvular disease. Physical Therapy eval. We will consult his housekeeper/custodian/laundry worker in a.m. for further recommendations. The patient had not seen his primary housekeeper/custodian/laundry worker, Dr. Pompa, for some time now. He may be benefit from a nuclear stress test if he had not one done recently. We will start him on gentle IV hydration and hold his blood pressure medications for now. Monitor blood pressure and slowly reinstitute his home medication. 2. Paroxysmal atrial fibrillation, rate controlled. He is currently is in normal sinus rhythm. He is not on anticoagulation due to history of gastrointestinal bleed from peptic ulcer disease. His EKG is non-discernable due to artifacts. We will repeat his EKG and continue tele monitor and management as above. 3. Recent gastrointestinal bleed secondary to peptic ulcer disease. We will continue his proton pump inhibitor. Monitor his CBC. 4. History of recent intra-abdominal abscess status post percutaneous drainage. We will complete his oral antibiotics. I believe that he had about a week worth of Levaquin and Flagyl. 5. Peptic ulcer disease. Continue proton pump inhibitor. 6. Coronary artery disease with history of coronary artery bypass graft. No anginal symptom at this point. His troponin is mildly elevated. We will cycle his troponins as mentioned above and follow echo. We will continue his beta-acacia , probably hold off on his nifedipine as well as Cozaar for the time being until his blood pressure is more stable. 7. Dyslipidemia. Continue statin. 8. Gout, stable. Continue allopurinol. 9. Normocytic anemia, likely secondary to recent gastrointestinal blood loss. His hemoglobin appears to be stable at 10.8. Monitor. Doubt it's the only cause of his syncopal episode. 10. Deep vein thrombosis prophylaxis. Start him on sequential compression devices. 11. Gastrointestinal prophylaxis. Continue his home proton pump inhibitor. 12. Code status. The patient is a full code per his request. Job ID: [id number] [facility]
[2020-03-13] MEDS: Sodium Chloride 0.9% 1,000 ML IV SCH (18:13)
[2020-03-14 04:57] LABS: #Eosinphils 0.2 thou/uL (0.0-0.7); #Lymphocytes 1.2 thou/uL (1.20-3.40); #Monocytes 0.7 thou/uL (0.11-0.59); #Neutrophils 6.9 thou/uL (1.40-6.50); %Basophils 0.3 % (0.0-1.0); %Eosinophils 2.1 % (0.0-10.0); %Lymphocytes 13.6 % (21.0-51.0); %Monocytes 7.9 % (0.0-10.0); %Neutrophils 76.2 % (42.0-75.0); Hemoglobin 9.5 g/dL (14.0-18.0); Mean Corpuscular HGB CONC 32.5 g/dL (32.0-36.0); Mean Corpuscular Hemoglobin 30.7 pg (27.0-31.0); Mean Corpuscular Volume 94.5 fL (78.0-98.0); Mean Platelet Volume 8.1 fL (7.4-10.4); Platelet Count 236 thou/uL (130-400); RBC Distribution Width 14.9 % (11.5-14.5); Red Blood Cell (RBC) Count 3.08 mill/uL (4.70-6.10); White Blood Cell (WBC) Count 9.1 thou/uL (4.8-10.8)
[2020-03-14 05:00] LABS: Hemoglobin A1c 5.8 % (4.0-6.0)
[2020-03-14 05:19] LABS: Anion Gap 12 mmol/L (10-20); BUN (Urea Nitrogen) 13 mg/dL (8.4-25.7); Calc. Creatinine Clearance 55 mL/min (70-130); Calcium 7.8 mg/dL (7.8-10.44); Carbon Dioxide 24 mmol/L (23-31); Chloride 104 mmol/L (98-107); Estimated GFR-MDRD 77; Glucose 103 mg/dL (83-110); Magnesium 1.4 mg/dL (1.6-2.6); Potassium 3.9 mmol/L (3.5-5.1); Sodium 136 mmol/L (136-145)
[2020-03-14 13:26] LABS: SARS-CoV-2 MS2 Positive; SARS-CoV-2 N Gene Negative; SARS-CoV-2 S Gene Negative; SARS-CoV-2 by NAA Not Detected (NotDetected); SARS-CoV-2 orf1ab Negative
[2020-03-14] MEDS: Sodium Chloride 0.9% 1,000 ML IV SCH (14:10)
[2020-03-14 14:51] LABS: Bilirubin Negative (Negative); Blood, Urine Negative (Negative); Clarity Clear (Clear); Glucose, Urine (Dipstick) Normal (Negative); Ketone, Urine Negative (Negative); Leukocyte Negative Leu/uL (Negative); Nitrite Negative (Negative); Protein, Urine (Dipstick) Negative (Neg-Trace); Specific Gravity, Urine 1.006 (1.002-1.036); Urobilinogen Normal mg/dL (Less than 2); pH, Urine 6.5 (5.0-9.0)
--- NOTE | 2020-03-14 15:19 | PDOC.HOSPP ---
- Subjective Subjective: Patient was seen examined at bedside. No acute events overnight. Telemetry reviewed. Patient had about 30 seconds runs of SVT, resolved spontaneously. His blood pressure improved with IV fluid hydration. Patient report that he is feeling better. No evidence of orthostasis. Echo reviewed, so preserved EF, otherwise unremarkable. Denies any chest pain. - Objective Vital Signs & Weight: Vital Signs (12 hours) Temp Pulse Pulse Pulse Pulse Pulse Resp 03/14/20 11:11 99.1 F 83 16 03/14/20 10:38 77 96 106 H 96 03/14/20 07:51 03/14/20 07:33 98.6 F 82 24 H 03/14/20 04:00 97.6 F 87 19 BP BP BP BP BP BP BP 03/14/20 11:11 135/68 03/14/20 10:38 142/63 H 128/65 118/59 L 168/78 H 03/14/20 07:51 03/14/20 07:33 135/64 03/14/20 04:00 129/60 Pulse Ox 03/14/20 11:11 96 03/14/20 10:38 03/14/20 07:51 96 03/14/20 07:33 96 03/14/20 04:00 92 L Weight Admit Weight 156 lb 8 oz Weight 156 lb 1.6 oz I&O: 03/13/20 03/14/20 03/15/20 06:59 06:59 06:59 Intake Total 810 Output Total 300 Balance 510 Result Diagrams: 03/14/20 04:19 03/14/20 04:19 Additional Labs: Accuchecks 03/14/20 03/14/20 03/13/20 11:03 06:24 20:47 POC Glucose 94 106 170 H Hospitalist ROS - Medication Medications: Active Medications Generic Name Dose Route Start Last Admin Trade Name Freq PRN Reason Stop Dose Admin Sodium Chloride 1,000 mls @ 50 mls/hr 03/13/20 17:00 03/14/20 14:10 Normal Saline 0.9% IV 1,000 mls .Q20H SUSANNA Administration - Exam General Appearance: NAD, awake alert Eye: PERRL, anicteric sclera ENT: normocephalic atraumatic, no oropharyngeal lesions Neck: supple, symmetric, no JVD Heart: RRR, no murmur, no gallops, no rubs, normal peripheral pulses Respiratory: CTAB, no wheezes, no rales Gastrointestinal: soft, non-tender, non-distended Extremities: no cyanosis, no clubbing, no edema, 1+ LE edema Skin: normal turgor Neurological: cranial nerve grossly intact, normal sensation to touch Musculoskeletal: normal tone, normal strength, no muscle wasting Psychiatric: normal affect, normal behavior, A&O x 3, oriented to time Hosp A/P - Plan ASSESSMENT and plan: #Recurrent syncope and collapse likely multifactorial, including poly-pharmacy, arrhythmia, hypotension #Paroxysmal atrial fib #SVT #History of recent GI bleed secondary to peptic ulcer disease #CAD with history of CABG #History of recent intra-abdominal abscess status post percutaneous drainage #Dyslipidemia #Gout #Normocytic anemia 03/14/2020 Uneventful overnight, patient is clinically improving. Patient had a short run of SVT, but spontaneously converted. He is currently on more normal sinus rhythms on telemetry. His blood pressure improved with IV fluid hydration. Will resume his beta-acacia, continue telemetry may monitor. I have reviewed his echo, showed preserved EF, 55%, otherwise unremarkable. His troponin remained flat. He denies any chest pain. He had not seen Dr. Pompa recently. I have placed a consult, to see whether or not he may need further ischemic work-up such as pharmacologic stress test is needed. Otherwise we will continue with current management, monitoring tech resume beta-acacia. Hold off other blood pressure medications. Monitor his blood pressure closely. PT eval. Anticipate discharge tomorrow if medically remained stable. Resume home dose oral antibiotics.
[2020-03-14] MEDS: metroNIDAZOLE 500 MG TAB PO SCH ×2 (15:52→20:48)
[2020-03-14] MEDS ORDERED: Magnesium Sulfate 4 GM in Sodium Chloride 0.9% 250 ML 250 ML IVPB SCH (17:30)
--- NOTE | 2020-03-14 20:38 | CON ---
DATE OF CONSULTATION: 03/14/2020 REASON FOR CONSULTATION: Recurrent syncopal episode. HISTORY OF PRESENT ILLNESS: Mr. Rogel is a very pleasant 89-year-old gentleman with long history of coronary artery disease with hypertension and syncopal episode, admitted with recurrent syncope. The patient also appears to have some element of dementia. Mr. Rogel has a very long cardiac history as outlined in the chart. He has a history of coronary artery bypass grafting and an aortic stenosis. He underwent evaluation for possible transcutaneous aortic valve replacement in June 2018. Cardiac catheterization was done, revealed that he had stenosis in the saphenous vein graft to the right coronary artery, underwent stent implantation 3.5 x 24 mm stent. It was dilated to 4 mm. Subsequently underwent transcutaneous aortic valve replacement successfully in [place]. The patient was admitted to the hospital recently with GI bleeding. Also had a syncopal episode and some paroxysmal atrial fibrillation. It was thought that he was not a candidate for anticoagulation due to history of GI bleeding and also episodes of falling. He was readmitted to the hospital on this occasion from the correction with recurrent episodes of unresponsiveness. The patient really cannot give a history as does he has developed dementia. He actually thinks he is still living in home, but the chart indicates he is living in a correction. The patient was on a lot of blood pressure medicine without any blood pressure today, as of today his blood pressure has been relatively low. CURRENT MEDICATIONS: Medications at home please see nurses notes. 1. It looks like he was taking Procardia XL, but the dose is not listed. 2. Carvedilol 25 mg twice a day. 3. Aspirin. 4. Atorvastatin. ALLERGIES: TO PENICILLIN. REVIEW OF SYSTEMS: Really not reliable as his memory is impaired. PHYSICAL EXAMINATION: GENERAL: This is a very thin, underweight looking gentleman. He has become very frail. 5 feet 9 inches and 156 pounds, but has lost a lot of muscle mass, looks very frail. He is alert and conversant. He knows who I am. He is very pleasant, but his memory is very poor. VITAL SIGNS: Blood pressures are variable, it is 168/78 and standing it was 129/60. Pulse in the 80s. LUNGS: Clear. CARDIAC: Normal S1 and normal S2. ABDOMEN: Soft and nontender. EXTREMITIES: Warm and dry. No clubbing or cyanosis. There is no edema. LABORATORY DATA: EKG shows sinus rhythm, the vast majority of the time. He does have some episodes of supraventricular rhythm, looks like it is probably a rapid atrial fibrillation for 30 seconds. ASSESSMENT: 1. Recurrent syncopal episodes, probably orthostatic hypotension, but there is always a some possibility this could be pauses after atrial fibrillation. 2. Previous transcutaneous aortic valve replacement. 3. Previous bypass surgery. 4. History of gastrointestinal bleeding. 5. Overall, he has become very frail. 6. Some element of dementia. PLAN: I think it is reasonable to place a LINQ device tomorrow. Discussed risks including bleeding, infection, and need for removal of the device. He understands and wishes to proceed. We will arrange for this tomorrow. He is so thin that there is even some chance of the device being associated with coming through the skin, very little fat or muscle tissue. Job ID: [id number]
[2020-03-15 04:58] LABS: #Eosinphils 0.2 thou/uL (0.0-0.7); #Lymphocytes 1.5 thou/uL (1.20-3.40); #Monocytes 0.7 thou/uL (0.11-0.59); #Neutrophils 6.7 thou/uL (1.40-6.50); %Basophils 0.3 % (0.0-1.0); %Eosinophils 2.7 % (0.0-10.0); %Lymphocytes 16.5 % (21.0-51.0); %Monocytes 7.5 % (0.0-10.0); Hemoglobin 9.6 g/dL (14.0-18.0); Mean Corpuscular Hemoglobin 31.1 pg (27.0-31.0); Mean Corpuscular Volume 94.2 fL (78.0-98.0); Mean Platelet Volume 7.9 fL (7.4-10.4); Platelet Count 248 thou/uL (130-400); RBC Distribution Width 14.9 % (11.5-14.5); Red Blood Cell (RBC) Count 3.09 mill/uL (4.70-6.10); White Blood Cell (WBC) Count 9.1 thou/uL (4.8-10.8)
[2020-03-15 05:24] LABS: Anion Gap 10 mmol/L (10-20); BUN (Urea Nitrogen) 11 mg/dL (8.4-25.7); Calc. Creatinine Clearance 65 mL/min (70-130); Calcium 7.8 mg/dL (7.8-10.44); Carbon Dioxide 26 mmol/L (23-31); Chloride 104 mmol/L (98-107); Estimated GFR-MDRD Greater than 90; Glucose 111 mg/dL (83-110); Potassium 4.1 mmol/L (3.5-5.1); Sodium 136 mmol/L (136-145)
[2020-03-15] MEDS ORDERED: Potassium Chloride 20 MEQ TAB PO SCH (08:00)
[2020-03-15] MEDS: metroNIDAZOLE 500 MG TAB PO SCH ×2 (08:38→14:52)
[2020-03-15] MEDS ORDERED: Lidocaine 1% w/Epinephrine 1:100K 20 ML VIAL ONE (12:38)
[2020-03-15] MEDS ORDERED: Aspirin 81 mg Enteric Coated Tablet PO SCH (13:15)
--- NOTE | 2020-03-15 13:34 | PRG ---
DATE OF SERVICE: 03/15/2020 SUBJECTIVE: Mr. Rogel is doing well. Blood pressure is variable, earlier this morning it was 200/90, but most recent 137/68. Pulse is 80. The patient underwent a LINQ procedure today for the recurrent syncopal episode. ASSESSMENT: 1. Recurrent syncope, probably orthostatic hypotension, but also has intermittent tachycardia. Poor candidate for anticoagulation with the history of GI bleeding and falling. 2. Labile blood pressure. 3. Coronary artery disease. 4. Previous transcutaneous aortic valve replacement. PLAN: 1. LINQ placed. 2. We will resume Procardia. He was on XL 90 mg previously, we will make it 30. 3. Resume losartan 50 mg a day. 4. Toprol-XL 25 mg a day. 5. He was on aspirin previously, we will resume the aspirin. 6. Okay to me to be transferred back to the nursing facility. I think his symptoms more likely are orthostatic hypotension related. We will allow blood pressure to run higher than the normal acceptable he does have syncopal episode, the LINQ can be interrogated to see if there is any dysrhythmia responsible for this. Job ID: [id number]
[2020-03-15 14:08] VITALS: BMI 22.9
[2020-03-15] MEDS: Sodium Chloride 0.9% 1,000 ML IV SCH (14:19)
--- NOTE | 2020-03-15 14:55 | DIS ---
DATE OF ADMISSION: 03/13/2020 DATE OF DISCHARGE: 03/15/2020 DISCHARGE DIAGNOSES: 1. Recurrent syncope and collapse, likely due to orthostatic hypotension. 2. Coronary artery disease with history of coronary artery bypass graft. 3. Aortic stenosis with history of previous transcutaneous aortic valve replacement. 4. Essential hypertension, blood pressure is labile. 5. Paroxysmal atrial fibrillation. 6. History of recent gastrointestinal bleed secondary to peptic ulcer disease. 7. History of recent intraabdominal abscess, status post percutaneous drainage, on oral antibiotics. 8. Dyslipidemia. 9. Gout. 10. Normocytic anemia. PROCEDURE: Loop recorder placement by Dr. Pompa. CONSULTATION: Cardiology, Dr. Pompa. LABORATORY DATA AND IMAGING STUDY: WBC 9.1, hemoglobin 9.6, hematocrit 29.1, and platelets 248. D-dimer 5.25. Sodium is 136, potassium is 4.1, chloride is 104, carbon dioxide 26, BUN 11, and creatinine 0.78. Hemoglobin A1c is 5.8. Magnesium 2.0. UA was negative. Serology COVID PCR was negative. CT scan, no evidence of acute intracranial abnormality. Chest x-ray, no evidence of acute cardiopulmonary process. HOSPITAL COURSE: The patient is a pleasant 89-year-old gentleman, who has significant past medical history of CAD with history of CABG, aortic stenosis, status post transcutaneous valvular replacement in [place], diabetes, hypertension, peptic ulcer disease, gout, dyslipidemia, paroxysmal atrial fibrillation, and history of recurrent syncope, presented to the ED with complaint of syncopal episode, it is apparently happened a couple of times when he was at the group home. He was discharged from our hospital on March 07, 2020. At that time, he was admitted for GI bleed secondary to peptic ulcer disease. While there, he had a couple of episodes, where he was passed out for about 5 to 10 seconds. He had no recollections of the event. This happened again when he was at home. There was no focal weakness. He denies any chest pain. Given his recurrent symptoms, Hospitalist was asked to admit the patient for further management and evaluation. Initial workup in the ED including CT head was negative for acute intracranial abnormalities. His EKG initially was nondiagnostic, repeated appeared to be sinus. He was subsequently admitted to [facility] for further workup. His serial enzymes were negative. Cardiology was consulted. It is looked like that his syncopal may be related to orthostatic hypotension. We have reduced his medications of his Procardia XL from 90 mg to 30 mg tablet. He will continue with his current dose of beta-blockers as well as Cozaar. The patient was seen by Dr. Pompa, he had a loop recorder placed. He tolerated the procedure well. He is feeling well and would like to be discharged home. We have maximum adjustment of his blood pressure medications as recommended by Dr. Pompa. He will be followed with his PCP for blood pressure check and followed with Cardiology as scheduled. DISPOSITION: The patient is stable to discharge home with home health. ACTIVITY: As tolerated. DIET: Cardiac diet. FOLLOWUP CARE: The patient is to follow with his PCP next week for blood pressure check and adjust accordingly. Follow with Cardiology for wound site check next week and follow with Dr. Pompa for ongoing management of his CAD. PHYSICAL EXAMINATION: VITAL SIGNS: Temperature is 97.8, respiratory rate 15, O2 saturations 97, blood pressure is 137/68, and he is saturating 97% on room air. GENERAL APPEARANCE: The patient is alert and oriented x3 with normal affect, not in acute distress. HEENT: Normocephalic and atraumatic. Mucous membranes moist. NECK: Supple. No lymphadenopathy. No JVD. CARDIOVASCULAR: Regular rate and rhythm. S1 and S2 noted. No murmur. PULMONOLOGY: Clear to auscultation bilaterally. ABDOMEN: Soft, nontender, and nondistended. Positive bowel sounds. MUSCULOSKELETAL: Normal strength, age appropriate. NEUROLOGIC: Cranial nerves 2 through 12 are grossly intact. No focal weakness. PSYCHIATRIC: The patient is alert and oriented x3 with normal affect. DISCHARGE MEDICATIONS: We have reduced his Procardia XL from 90 mg to 30 mg p.o. tablet. He will continue with his usual medications includin. Tylenol 325 mg p.o. p.r.n. for pain. 2. Allopurinol 100 mg p.o. daily. 3. Aspirin 81 mg p.o. daily. 4. Lipitor 40 mg p.o. nightly. 5. Vitamin D3 of 2000 units p.o. daily supplement. 6. Klonopin 1 mg b.i.d. 7. He will continue to complete a course of antibiotics, Levaquin 500 mg p.o. daily until March 24 as well as Flagyl 500 mg t.i.d. until March 21. 8. Toprol-XL 25 mg p.o. daily. 9. Cozaar 50 mg p.o. daily. 10. Metformin 500 mg b.i.d. 11. Protonix 40 mg p.o. daily. 12. MiraLAX 1 packet p.o. daily. It should be noted that the patient is not a candidate for anticoagulation due to his GIB. Thank you for allowing us to participate in this patient's care. Discharge Time Spent: 36 min Job ID: [id number] MTDD
[2020-03-15 15:42] VITALS: BP 166/77; TEMP 98.1
[2020-03-16] MEDS ORDERED: Aspirin 81 mg Enteric Coated Tablet PO SCH (09:00)
[2020-03-16] MEDS ORDERED: Losartan 25 MG TAB PO SCH (09:00)
[2020-03-16] MEDS ORDERED: NIFEdipine XL 30 MG TAB PO SCH (09:00)
== END 2020-03-15 16:50 | disposition home health service (06) | DRG 312 ==
LOC: ERS 13:01 → OBSVTOIN 15:52 → 2NO 15:52
PROVIDERS: ADMIT Family Medicine; ATTEND Family Medicine
DX: I95.1 Orthostatic hypotension (principal); I47.1 Supraventricular tachycardia; I25.10 Atherosclerotic heart disease of native coronary artery without angina pectoris; I10 Essential (primary) hypertension; E11.9 Type 2 diabetes mellitus without complications; E78.5 Hyperlipidemia, unspecified; I48.0 Paroxysmal atrial fibrillation; K27.9 Peptic ulcer, site unspecified, unspecified as acute or chronic, without hemorrhage or perforation; D50.0 Iron deficiency anemia secondary to blood loss (chronic); M10.9 Gout, unspecified; Z95.1 Presence of aortocoronary bypass graft; Z79.82 Long term (current) use of aspirin; Z88.0 Allergy status to penicillin
CPT/HCPCS: 33285; 36415; 36416; 70450; 71045; 80048; 80053; 81003; 82533; 82550; 82553; 83036; 83690; 83735; 83880; 84146; 84443; 84484; 85025; 85379; 87635; 93005; 93306; 94760; 96360; C1764; J3475; J7050; U0003

== ENCOUNTER 2020-08-26 17:49 | Inpatient (IN) | payer MEDICARE ==
[2020-08-26] MEDS ORDERED: Atropine Sulfate 1 mg/10 ml Syringe ONE (17:56)
[2020-08-26 18:16] LABS: #Monocytes 0.7 thou/uL (0.11-0.59); #Neutrophils 8.3 thou/uL (1.40-6.50); %Eosinophils 0.1 % (0.0-10.0); %Lymphocytes 10.4 % (21.0-51.0); %Monocytes 6.7 % (0.0-10.0); %Neutrophils 82.8 % (42.0-75.0); Mean Corpuscular HGB CONC 33.3 g/dL (32.0-36.0); Mean Corpuscular Volume 89.9 fL (78.0-98.0); Mean Platelet Volume 9.2 fL (7.4-10.4); Platelet Count 122 thou/uL (130-400); RBC Distribution Width 13.6 % (11.5-14.5); Red Blood Cell (RBC) Count 3.99 mill/uL (4.70-6.10)
[2020-08-26 18:25] LABS: INR-International Normal Ratio 1.4; PTT 32.1 sec (22.9-36.1)
[2020-08-26] MEDS ORDERED: Cefepime 2 GM VIAL ONE (18:28)
[2020-08-26 18:31] LABS: ALT (SGPT) 23 U/L (8-55); AST (SGOT) 88 U/L (5-34); Albumin 3.2 g/dL (3.4-4.8); Alkaline Phosphatase 86 U/L (40-110); Anion Gap 18 mmol/L (10-20); BUN (Urea Nitrogen) 47 mg/dL (8.4-25.7); Bilirubin, Total 1.7 mg/dL (0.2-1.2); Calc. Creatinine Clearance 0 mL/min (70-130); Calcium 8.2 mg/dL (7.8-10.44); Carbon Dioxide 18 mmol/L (23-31); Chloride 109 mmol/L (98-107); Globulin 2.6 g/dL (2.4-3.5); Glucose 123 mg/dL (83-110); Potassium 4.6 mmol/L (3.5-5.1); Protein, Total 5.8 g/dL (5.8-8.1); Sodium 140 mmol/L (136-145)
[2020-08-26 18:52] LABS: Bilirubin Moderate (Negative); Blood, Urine Trace (Negative); Glucose, Urine (Dipstick) Negative (Negative); Ketone, Urine Negative (Negative); Leukocyte Negative (Negative); Nitrite Negative (Negative); Protein, Urine (Dipstick) 100 mg/dL (Neg-Trace); Urobilinogen 0.2 mg/dL (Less than 2); pH, Urine 5.5 (5.0-9.0)
[2020-08-26 18:53] LABS: Actual Bicarbonate (HCO3a) 16.3 mEq/L (22-28); Analyzer IN Cardio ER; Base Excess (BEa) -11.7 mEq/L (-2.0 to +3.0); Calcium, Ionized (arterial) 1.16 mmol/L (1.12-1.30); Carboxyhemoglobin (COHb) 0.3 gm% (0.0-3.0); Hemoglobin (Hb) 11.9 g/dL (14.0-18.0); O2 Tension (PaO2), arterial 90.7 mmHg (> 60.0); Potassium - ABG Lab 3.93 mmol/L (3.70-5.30)
[2020-08-26 18:56] LABS: Puncture Site RRA; pH, Arterial 7.18 (7.35-7.45)
[2020-08-26 19:00] LABS: CKMB 57.9 ng/mL (0-6.6)
[2020-08-26 19:05] LABS: Amphetamine Not Detected (NotDetected); Barbiturates Screen Not Detected (NotDetected); Benzodiazepine Screen Not Detected (NotDetected); Cocaine Metabolite Screen Not Detected (NotDetected); Medtox Control Line Valid? VALID (VALID); Medtox Reader # READER 1; Methadone Not Detected (NotDetected); Methamphetamine Not Detected (NotDetected); Opiate Screen Not Detected (NotDetected); Oxycodone Screen Not Detected (NotDetected); Phencyclidine (PCP) Not Detected (NotDetected); THC/Cannabinoid Screen Not Detected (NotDetected); Tricyclic Screen Not Detected (NotDetected)
[2020-08-26 19:15] LABS: Clarity Clear (Clear)
[2020-08-26 19:16] LABS: Specific Gravity, Urine 1.019 (1.002-1.036)
[2020-08-26 19:18] LABS: RBC/HPF 0-3 HPF (0-3); Squamous Epithelial 0-3 HPF (0-3); WBC/HPF 0-3 HPF (0-3)
[2020-08-26 19:19] LABS: Bacteria/HPF Rare-Few HPF (None Seen)
--- NOTE | 2020-08-26 19:34 | CT ---
CT head noncontrast HISTORY: Altered mental status. COMPARISON: 03/13/2020. FINDINGS: There is no evidence of acute intracranial hemorrhage or infarct. Diffuse cortical atrophy and chronic ischemic small vessel disease are similar in appearance to the prior study. There is no mass effect or shift of midline structures. Mucosal thickening and postoperative changes of the ethmoid air cells and maxillary sinuses again dem onstrated. IMPRESSION : No acute abnormalities are demonstrated.
[2020-08-26] MEDS ORDERED: Vancomycin 1 GM/200 ML BAG ONE (19:39)
[2020-08-26 19:47] LABS: SARS-CoV-2 NAA Rapid Test Not Detected (NotDetected)
[2020-08-26 19:54] LABS: Acetaminophen Less than 6.0 mcg/mL (10.0-30.0); Alcohol Less than 10 mg/dL (Less than 10); Magnesium 1.8 mg/dL (1.6-2.6); Salicylate Less than 8.0 mg/dL (15.0-30.0)
--- NOTE | 2020-08-26 20:00 | RAD ---
AP CHEST: HISTORY: Mental status change. COMPARISON: 03/13/2020 FINDINGS: Elevated right hemidiaphragm is stable. Cardiomegaly with mild vascular congestion. No focal infiltra te or significant effusion. No significant interval change apparent. POS: AGW
--- NOTE | 2020-08-26 22:01 | PDOC.HHP ---
Hospitalist MAURICIO AMS History of Present Illness: This is an 89-year-old male patient with a history of hypertension, hyperlipidemia, diabetes mellitus and gout who was brought in by EMS on account of altered mental status with hypothermia. According to records patient was last known at baseline about 3 days ago however patient was found in his house by his family down and unresponsive for an unknown period of time EMS was activated and was brought in here for further management. Was unclear whether he had a syncopal event. On arrival BP was 140/66 cover pause for chief complaint respiratory 12, temperature 85.5 and oxygen saturation 100% on room air. Labs showed mild anemia of 12.0 and reduced platelets of 122. Chemistry showed creatinine of 1.42 from 0.78, bicarb 18 glucose 123. Total bilirubin was 1.7 AST 88. Troponin elevated at 0.14 and BNP was 519. Blood gases showed a pH of 7.[address] brain showed no acute intracranial process chest x-ray showed elevated right hemidiaphragm which is stable. However had cardiomegaly with vascular congestion. He received vancomycin and cefepime 1 L normal saline and atropine injection Hospitalist team consulted for admission Allergies/Adverse Reactions: Allergy/AdvReac Type Severity Reaction Status Date / Time Penicillins Allergy Verified 03/13/20 17:38 Home Medications: Medication Instructions Recorded Confirmed Type Aspirin Chewable [Aspirin Chewable 81 mg PO DAILY 06/14/18 03/14/20 History Tablet] metFORMIN [Glucophage] 500 mg PO BID-WM 06/14/18 03/14/20 History Allopurinol 100 mg PO DAILY 08/22/19 03/14/20 History Atorvastatin Calcium [Lipitor] 40 mg PO HS 08/22/19 03/14/20 History Acetaminophen [Tylenol] 2 tab PO PRN PRN 03/05/20 03/14/20 History clonazePAM [Klonopin] 1 mg PO BID 03/14/20 03/14/20 History Cholecalciferol [Vitamin D3] 2,000 unit PO DAILY 03/15/20 03/15/20 History Glucagon,Human Recombinant 1 mg IM ONE PRN 03/15/20 03/15/20 History [Glucagen] Levofloxacin [Levaquin] 500 mg PO DAILY 03/15/20 03/15/20 History Losartan [Cozaar] 50 mg PO DAILY 03/15/20 03/15/20 History Metoprolol Succinate [Toprol XL] 25 mg PO DAILY 03/15/20 03/15/20 History NIFEdipine [Procardia XL] 30 mg PO DAILY #30 tab 03/15/20 Rx Ondansetron HCl [Zofran] 4 mg PO Q6HR PRN 03/15/20 03/15/20 History Pantoprazole [Protonix] 40 mg PO DAILY 03/15/20 03/15/20 History Polyethylene Glycol 3350 [Miralax] 17 gm PO DAILY 03/15/20 03/15/20 History metroNIDAZOLE [Flagyl] 500 mg PO TID 03/15/20 03/15/20 History Past History: PMHx:Diabetes mellitus type 2, gout, hyperlipidemia, hypertension, coronary artery disease Past surgical history: CABG, bovine valve replacement. Family history: None of significance. Social history: Occasional drinker, no drug use. Hospitalist HPI ROS ROS unobtainable: due to mental status Hospitalist Exam General - other findings: Awake however confused. Eye: PERRL, anicteric sclera Neck: supple, symmetric, no JVD, no thyromegaly Heart: RRR, no murmur, no gallops, normal peripheral pulses Respiratory: CTAB, no wheezes, no rales, no ronchi Gastrointestinal: soft, non-tender, non-distended, normal bowel sounds Neurological: cranial nerve grossly intact, no weakness, no focal deficits Musculoskeletal: normal tone, normal strength Psychiatric: oriented to person Hospitalist Results Result Diagrams: 08/26/20 18:04 08/26/20 18:04 Lab results: Laboratory Last Values WBC 10.0 thou/uL (4.8-10.8) 08/26/20 18:04 RBC 3.99 mill/uL (4.70-6.10) L 08/26/20 18:04 Hgb 12.0 g/dL (14.0-18.0) L 08/26/20 18:04 Hct 35.9 % (42.0-52.0) L 08/26/20 18:04 MCV 89.9 fL (78.0-98.0) 08/26/20 18:04 MCH 30.0 pg (27.0-31.0) 08/26/20 18:04 MCHC 33.3 g/dL (32.0-36.0) 08/26/20 18:04 RDW 13.6 % (11.5-14.5) 08/26/20 18:04 Plt Count 122 thou/uL (130-400) L 08/26/20 18:04 MPV 9.2 fL (7.4-10.4) 08/26/20 18:04 Neutrophils % 82.8 % (42.0-75.0) H 08/26/20 18:04 Lymphocytes % 10.4 % (21.0-51.0) L 08/26/20 18:04 Monocytes % 6.7 % (0.0-10.0) 08/26/20 18:04 Eosinophils % 0.1 % (0.0-10.0) 08/26/20 18:04 Basophils % 0.0 % (0.0-1.0) 08/26/20 18:04 Neutrophils # 8.3 thou/uL (1.40-6.50) H 08/26/20 18:04 Lymphocytes # 1.0 thou/uL (1.20-3.40) L 08/26/20 18:04 Monocytes # 0.7 thou/uL (0.11-0.59) H 08/26/20 18:04 Eosinophils # 0.0 thou/uL (0.0-0.7) 08/26/20 18:04 Basophils # 0.0 thou/uL (0.0-0.2) 08/26/20 18:04 PT 17.0 sec (12.0-14.7) H 08/26/20 18:04 INR 1.4 08/26/20 18:04 APTT 32.1 sec (22.9-36.1) 08/26/20 18:04 Specimen Type ARTERIAL 08/26/20 18:45 Puncture Site RRA 08/26/20 18:45 Bicarbonate Actual 16.3 mEq/L (22-28) L 08/26/20 18:45 ABG pH 7.18 (7.35-7.45) L* 08/26/20 18:45 ABG pCO2 45.0 mmHg (35.0-45.0) 08/26/20 18:45 ABG pO2 90.7 mmHg (> 60.0) H 08/26/20 18:45 ABG O2 Sat (Measured) 93.7 % (94.0-98.0) L 08/26/20 18:45 ABG O2 Content 15.6 vol% (18.0-21.0) L 08/26/20 18:45 ABG Base Excess -11.7 mEq/L (-2.0 to +3.0) L 08/26/20 18:45 ABG Hematocrit 35.0 % (42.0-52.0) L 08/26/20 18:45 ABG Hemoglobin 11.9 g/dL (14.0-18.0) L 08/26/20 18:45 ABG Oxyhemoglobin 92.8 % (94.0-98.0) L 08/26/20 18:45 ABG Carboxyhemoglobin 0.3 gm% (0.0-3.0) 08/26/20 18:45 ABG Methemoglobin 0.70 gm% (0.04-1.52) 08/26/20 18:45 ABG Deoxyhemoglobin 6.2 % (0.0-2.9) H 08/26/20 18:45 Patel Test POSITIVE 08/26/20 18:45 A-a O2 Gradient 52.690 mmHg (0-20) H 08/26/20 18:45 Sodium 138 mmol/L (135-148) 08/26/20 18:45 Potassium 3.93 mmol/L (3.70-5.30) 08/26/20 18:45 Chloride 110 mmol/L (98-106) H 08/26/20 18:45 Ionized Calcium 1.16 mmol/L (1.12-1.30) 08/26/20 18:45 Mode of Support 2LNC 08/26/20 18:45 Inspired O2 28 % 08/26/20 18:45 Sodium 140 mmol/L (136-145) 08/26/20 18:04 Potassium 4.6 mmol/L (3.5-5.1) 08/26/20 18:04 Chloride 109 mmol/L (98-107) H 08/26/20 18:04 Carbon Dioxide 18 mmol/L (23-31) L 08/26/20 18:04 Anion Gap 18 mmol/L (10-20) 08/26/20 18:04 BUN 47 mg/dL (8.4-25.7) H 08/26/20 18:04 Creatinine 1.42 mg/dL (0.7-1.3) H 08/26/20 18:04 Estimated GFR (MDRD) 47 08/26/20 18:04 Glucose 123 mg/dL (83-110) H 08/26/20 18:04 Lactic Acid 1.1 mmol/L (0.5-2.2) 08/26/20 18:04 Calcium 8.2 mg/dL (7.8-10.44) 08/26/20 18:04 Magnesium 1.8 mg/dL (1.6-2.6) 08/26/20 18:04 Total Bilirubin 1.7 mg/dL (0.2-1.2) H 08/26/20 18:04 AST 88 U/L (5-34) H 08/26/20 18:04 ALT 23 U/L (8-55) 08/26/20 18:04 Alkaline Phosphatase 86 U/L (40-110) 08/26/20 18:04 CK-MB (CK-2) 57.9 ng/mL (0-6.6) H* 08/26/20 18:04 Troponin I 0.142 ng/mL (< 0.028) H 08/26/20 18:04 B-Natriuretic Peptide 519.2 pg/mL (0-100) H 08/26/20 18:04 Serum Total Protein 5.8 g/dL (5.8-8.1) 08/26/20 18:04 Albumin 3.2 g/dL (3.4-4.8) L 08/26/20 18:04 Globulin 2.6 g/dL (2.4-3.5) 08/26/20 18:04 Albumin/Globulin Ratio 1.2 g/dL (1.2-2.2) 08/26/20 18:04 Free T4 1.09 ng/dL (0.70-1.48) 08/26/20 18:04 TSH 3rd Generation 1.8750 uIU/mL (0.35-4.94) 08/26/20 18:04 Cortisol 35.40 ug/dL (See Ranges) 08/26/20 19:37 Urine Color Yellow (Yellow) 08/26/20 18:00 Urine Clarity Clear (Clear) 08/26/20 18:00 Urine pH 5.5 (5.0-9.0) 08/26/20 18:00 Ur Specific [place] 1.019 (1.002-1.036) 08/26/20 18:00 Urine Protein 100 mg/dL (Neg-Trace) A 08/26/20 18:00 Urine Glucose (UA) Negative mg/dL (Negative) 08/26/20 18:00 Urine Ketones Negative mg/dL (Negative) 08/26/20 18:00 Urine Blood Trace (Negative) 08/26/20 18:00 Urine Nitrite Negative (Negative) 08/26/20 18:00 Urine Bilirubin Moderate (Negative) A 08/26/20 18:00 Urine Urobilinogen 0.2 mg/dL (Less than 2) 08/26/20 18:00 Ur Leukocyte Esterase Negative (Negative) 08/26/20 18:00 Urine RBC 0-3 HPF (0-3) 08/26/20 18:00 Urine WBC 0-3 HPF (0-3) 08/26/20 18:00 Ur Squamous Epith Cells 0-3 HPF (0-3) 08/26/20 18:00 Urine Bacteria Rare-Few HPF (None Seen) 08/26/20 18:00 Hyaline Casts 0-3 LPF (0-3) 08/26/20 18:00 Salicylates Less than 8.0 mg/dL (15.0-30.0) L 08/26/20 18:04 Urine Opiates Screen Not Detected (NotDetected) 08/26/20 18:00 Ur Oxycodone Screen Not Detected (NotDetected) 08/26/20 18:00 Urine Methadone Screen Not Detected (NotDetected) 08/26/20 18:00 Ur Propoxyphene Screen Not Detected (NotDetected) 08/26/20 18:00 Acetaminophen Less than 6.0 mcg/mL (10.0-30.0) L 08/26/20 18:04 Ur Barbiturates Screen Not Detected (NotDetected) 08/26/20 18:00 Ur Tricyclics Screen Not Detected (NotDetected) 08/26/20 18:00 Ur Phencyclidine Scrn Not Detected (NotDetected) 08/26/20 18:00 Ur Amphetamines Screen Not Detected (NotDetected) 08/26/20 18:00 U Methamphetamines Scrn Not Detected (NotDetected) 08/26/20 18:00 U Benzodiazepines Scrn Not Detected (NotDetected) 08/26/20 18:00 U Cocaine Metab Screen Not Detected (NotDetected) 08/26/20 18:00 U Cannabinoids Screen Not Detected (NotDetected) 08/26/20 18:00 Drug Screen Comment () 08/26/20 18:00 Plasma Alcohol Less than 10 mg/dL (Less than 10) 08/26/20 18:04 Influenza A RNA INAAT Not Detected (NotDetected) 08/26/20 18:50 Influenza B RNA INAAT Not Detected (NotDetected) 08/26/20 18:50 SARS-CoV-2 Rap RNA(RT-PCR) Not Detected (NotDetected) 08/26/20 18:50 Hospitalist H&P A/P Plan: This is an 89-year-old male patient with a history of coronary artery disease post CABG, hypertension diabetes and gout who presents with altered mental status of unclear etiology. Acute encephalopathy Possibilities include sepsis, catastrophic vascular accidents/toxins. Patient was hypothermic as well improved with warming. No need for intubation at the moment We will monitor in IMCU Close follow-up. Hypothermia Likely secondary to being down for relatively long time Gradually warming. Continue Antonino hugger -Fall Unclear mechanism Monitoring telemetry Check orthostatics Check creatinine can, phosphorus Echo in a.m. NSTEMI Unclear etiologyunlikely ACS Trend troponin Echocardiogram reviewed needs Consider cardio evaluation. PENELOPE Initial creatinine elevated at 1.42, Possibly prerenal from dehydration and prolonged downtime. Patient received hydration We will check CK Avoid nephrotoxic agents Monitor closely. Heart failure exacerbation Patient has pulmonary congestion and elevated BNP at 519. We will diurese Echocardiogram in a.m. Consider cardiology evaluation. Diabetes mellitus Correctional insulin Monitor glucose. Gout Does not appear to be in acute exacerbation Monitor. VT prophylaxisLovenox CODE STATUSto be discussed
[2020-08-26 22:33] LABS: Troponin I 0.116 ng/mL (< 0.028)
[2020-08-26] MEDS ORDERED: Lorazepam 2 MG/ML VIAL ONE (23:06)
[2020-08-27] MEDS ORDERED: Dextrose 50% Abboject 50 ML SYRINGE SLOW IVP PRN (00:15)
[2020-08-27] MEDS ORDERED: Dextrose 5% in Water 1,000 ML IV PRN (00:15)
[2020-08-27 01:34] VITALS: BMI 23.1
[2020-08-27 01:54] LABS: Troponin I 0.128 ng/mL (< 0.028)
[2020-08-27] MEDS: Azithromycin 500 MG in Sodium Chloride 0.9% 250 ML 250 ML IVPB SCH (02:42)
[2020-08-27 04:08] LABS: #Monocytes 0.9 thou/uL (0.11-0.59); #Neutrophils 8.4 thou/uL (1.40-6.50); %Lymphocytes 9.4 % (21.0-51.0); %Neutrophils 81.6 % (42.0-75.0); Hemoglobin 11.1 g/dL (14.0-18.0); Mean Corpuscular HGB CONC 33.9 g/dL (32.0-36.0); Mean Corpuscular Hemoglobin 30.9 pg (27.0-31.0); Mean Platelet Volume 9.4 fL (7.4-10.4); Platelet Count 125 thou/uL (130-400); RBC Distribution Width 13.8 % (11.5-14.5); Red Blood Cell (RBC) Count 3.59 mill/uL (4.70-6.10); White Blood Cell (WBC) Count 10.3 thou/uL (4.8-10.8)
[2020-08-27 04:30] LABS: Anion Gap 21 mmol/L (10-20); BUN (Urea Nitrogen) 51 mg/dL (8.4-25.7); Calc. Creatinine Clearance 38 mL/min (70-130); Carbon Dioxide 14 mmol/L (23-31); Chloride 110 mmol/L (98-107); Glucose 107 mg/dL (83-110); Magnesium 1.7 mg/dL (1.6-2.6); Potassium 3.8 mmol/L (3.5-5.1); Sodium 141 mmol/L (136-145)
[2020-08-27 04:31] LABS: Phosphorus 5.8 mg/dL (2.3-4.7)
[2020-08-27] MEDS: cefTRIAXone\\ROCEPHIN 1 GM in Sodium Chloride 0.9% 100 ML IVPB SCH (05:00)
[2020-08-27] MEDS: Furosemide 40 MG/4 ML VIAL SLOW IVP SCH (07:52)
[2020-08-27] MEDS: Enoxaparin Sodium 40 MG/0.4 ML SYRINGE SC SCH (07:53)
--- NOTE | 2020-08-27 12:33 | PDOC.HOSPP ---
- Subjective Encounter Date: 08/27/20 Subjective: No acute events overnight. Patient remains confused and pulling at his lines sporadically. Patient does answer that he is in the hospital, but otherwise does not appear oriented. - Objective Vital Signs & Weight: Vital Signs (12 hours) Temp Pulse Resp BP Pulse Ox 08/27/20 12:00 98.3 F 65 18 147/65 H 99 08/27/20 10:00 63 20 139/62 97 08/27/20 07:57 99.1 F 66 20 127/59 L 99 08/27/20 06:00 68 12 115/68 08/27/20 04:11 98.1 F 66 16 115/61 100 08/27/20 02:01 67 12 111/58 L 100 08/27/20 01:31 98.4 F 75 14 104/50 L 100 Weight Weight 170 lb 3.15 oz I&O: 08/26/20 08/27/20 08/28/20 06:59 06:59 06:59 Intake Total 450 Balance 450 Result Diagrams: 08/27/20 03:43 08/27/20 03:43 Additional Labs: Accuchecks 08/27/20 07:47 POC Glucose 95 Hospitalist ROS - Review of Systems ROS unobtainable: due to mental status - Medication Medications: Active Medications Generic Name Dose Route Start Last Admin Trade Name Katarina PRN Reason Stop Dose Admin Enoxaparin Sodium 40 mg 08/27/20 09:00 08/27/20 07:53 Enoxaparin Sodium 40 Mg/0.4 Ml Syringe SC 40 mg 0900 SUSANNA Administration Furosemide 40 mg 08/27/20 09:00 08/27/20 07:52 Furosemide 40 Mg/4 Ml Vial SLOW IVP 08/28/20 23:55 40 mg DAILY SUSANNA Administration Azithromycin 500 mg/ Sodium 250 mls @ 250 mls/hr 08/27/20 00:30 08/27/20 02:42 Chloride IVPB 250 mls Q24HR SUSANNA Administration Ceftriaxone Sodium 1 gm/ 100 mls @ 200 mls/hr 08/27/20 05:00 08/27/20 05:00 Sodium Chloride IVPB 100 mls 0500 SUSANNA Administration Hospitalist Exam Vitals: Vital Signs (12 hours) Temp Pulse Resp BP Pulse Ox 08/27/20 12:00 98.3 F 65 18 147/65 H 99 08/27/20 10:00 63 20 139/62 97 08/27/20 07:57 99.1 F 66 20 127/59 L 99 08/27/20 06:00 68 12 115/68 08/27/20 04:11 98.1 F 66 16 115/61 100 08/27/20 02:01 67 12 111/58 L 100 08/27/20 01:31 98.4 F 75 14 104/50 L 100 Weight Weight 170 lb 3.15 oz General Appearance: ill appearing Eye: anicteric sclera ENT: normocephalic atraumatic Neck: no JVD Heart: RRR, no murmur, no gallops, no rubs Respiratory: CTAB, no wheezes, no rales Gastrointestinal: soft, non-tender, non-distended, no palpable masses Extremities: 1+ LE edema Skin: no rashes Musculoskeletal: generalized weakness Psychiatric: oriented to place, lethargic Hosp A/P - Plan This is an 89-year-old male patient with a history of coronary artery disease post CABG, hypertension diabetes and gout who presents with altered mental status of unclear etiology. Acute encephalopathy Possibilities include sepsis, catastrophic vascular accidents/toxins. Patient was hypothermic as well improved with warming. No need for intubation at this time. We will monitor in IMCU Close follow-up. Hypothermia Likely secondary to being down for relatively long time Gradually warming. Continue Antonino hugger -Fall Unclear mechanism Monitoring telemetry Empiric antibiotics Check orthostatics Monitor electrolytes Perform echocardiogram Rhabdomyolysis CK markedly elevated above 3000 Patient provided IV bolus in ER Provide gentle hydration with NS at 75 mL/h secondary to patient's additional diagnosis of CHF exacerbation Will be constant balance with fluid resuscitation and diuresis. NSTEMI Unclear etiologyunlikely ACS Trend troponin Echocardiogram ordered for review Consider cardio evaluation pending troponin reevaluation. PENELOPE Initial creatinine elevated at 1.42, Possibly prerenal from dehydration and prolonged downtime. Patient received hydration CK markedly elevated Avoid nephrotoxic agents Monitor closely. Heart failure exacerbation Patient has pulmonary congestion and elevated BNP at 519. We will diurese Echocardiogram in a.m. Consider cardiology evaluation. Diabetes mellitus Correctional insulin Monitor glucose. Gout Does not appear to be in acute exacerbation Monitor. VT prophylaxisLovenox GI prophylaxis: Pepcid CODE STATUS: Unclear, will discuss with family Disposition: Pending clinical improvement
[2020-08-27] MEDS: Sodium Chloride 0.9% 1,000 ML IV SCH (12:59)
[2020-08-27 13:35] LABS: Troponin I 0.266 ng/mL (< 0.028)
[2020-08-28] MEDS: Azithromycin 500 MG in Sodium Chloride 0.9% 250 ML 250 ML IVPB SCH (00:09)
[2020-08-28] MEDS ORDERED: cefTRIAXone\\ROCEPHIN 1 GM in Sodium Chloride 0.9% 100 ML IVPB SCH (00:30)
[2020-08-28] MEDS ORDERED: ALPRAZolam 0.5 MG TAB PO SCH (02:45)
[2020-08-28] MEDS: Sodium Chloride 0.9% 1,000 ML IV SCH ×4 (05:06→20:39)
[2020-08-28] MEDS: cefTRIAXone\\ROCEPHIN 1 GM in Sodium Chloride 0.9% 100 ML IVPB SCH (05:07)
[2020-08-28] MEDS: Furosemide 40 MG/4 ML VIAL SLOW IVP SCH (08:08)
[2020-08-28] MEDS: Enoxaparin Sodium 40 MG/0.4 ML SYRINGE SC SCH (08:08)
[2020-08-28 11:35] LABS: #Eosinphils 0.1 thou/uL (0.0-0.7); #Lymphocytes 1.1 thou/uL (1.20-3.40); #Monocytes 0.6 thou/uL (0.11-0.59); #Neutrophils 6.5 thou/uL (1.40-6.50); %Basophils 0.1 % (0.0-1.0); %Eosinophils 0.6 % (0.0-10.0); %Monocytes 7.2 % (0.0-10.0); %Neutrophils 79.1 % (42.0-75.0); Hemoglobin 11.3 g/dL (14.0-18.0); Mean Corpuscular HGB CONC 34.3 g/dL (32.0-36.0); Mean Corpuscular Hemoglobin 30.9 pg (27.0-31.0); Mean Corpuscular Volume 90.1 fL (78.0-98.0); Mean Platelet Volume 8.9 fL (7.4-10.4); Platelet Count 116 thou/uL (130-400); RBC Distribution Width 14.2 % (11.5-14.5); Red Blood Cell (RBC) Count 3.66 mill/uL (4.70-6.10); White Blood Cell (WBC) Count 8.2 thou/uL (4.8-10.8)
[2020-08-28 11:51] LABS: ALT (SGPT) 30 U/L (8-55); AST (SGOT) 85 U/L (5-34); Albumin 3.5 g/dL (3.4-4.8); Alkaline Phosphatase 77 U/L (40-110); Anion Gap 14 mmol/L (10-20); BUN (Urea Nitrogen) 38 mg/dL (8.4-25.7); Bilirubin, Total 0.9 mg/dL (0.2-1.2); CK (CPK) 1645 U/L (30-200); Calc. Creatinine Clearance 39 mL/min (70-130); Calcium 8.2 mg/dL (7.8-10.44); Carbon Dioxide 24 mmol/L (23-31); Chloride 110 mmol/L (98-107); Globulin 2.7 g/dL (2.4-3.5); Glucose 217 mg/dL (83-110); Potassium 3.1 mmol/L (3.5-5.1); Protein, Total 6.2 g/dL (5.8-8.1); Sodium 145 mmol/L (136-145)
[2020-08-28 11:56] LABS: Troponin I 0.191 ng/mL (< 0.028)
[2020-08-28] MEDS: HumaLOG 300 UNITS/3 ML VIAL SC PRN (12:29)
[2020-08-28] MEDS ORDERED: NIFEdipine XL 30 MG TAB PO SCH (12:30)
[2020-08-28] MEDS ORDERED: Metoprolol Tartrate 25 MG TAB PO SCH (14:15)
[2020-08-28] MEDS ORDERED: Potassium Chloride 20 MEQ TAB PO SCH (17:45)
--- NOTE | 2020-08-28 17:57 | PDOC.HOSPP ---
- Subjective Encounter Date: 08/28/20 Subjective: Patient was pleasant today. He denied any problems. - Objective Vital Signs & Weight: Vital Signs (12 hours) Temp Pulse Resp BP BP BP Pulse Ox 08/28/20 15:47 98 F 72 20 171/99 H 97 08/28/20 12:32 72 182/87 H 08/28/20 12:15 98.1 F 80 20 181/80 H 98 08/28/20 08:00 97.2 F L 70 16 155/100 H 100 08/28/20 06:54 69 157/105 H Weight Admit Weight 170 lb 3.152 oz Weight 170 lb 3.152 oz I&O: 08/27/20 08/28/20 08/29/20 06:59 06:59 06:59 Intake Total 450 2165 476 Output Total 7134 2410 Balance 610 -930 -0384 Result Diagrams: 08/28/20 11:22 08/28/20 11:22 Additional Labs: Accuchecks 08/28/20 08/28/20 08/28/20 16:40 10:57 06:05 POC Glucose 146 H 198 H 107 H 08/27/20 20:14 POC Glucose 92 Hospitalist ROS - Medication Medications: Active Medications Generic Name Dose Route Start Last Admin Trade Name Freq PRN Reason Stop Dose Admin Enoxaparin Sodium 40 mg 08/27/20 09:00 08/28/20 08:08 Enoxaparin Sodium 40 Mg/0.4 Ml Syringe SC 40 mg 0900 SUSANNA Administration Furosemide 40 mg 08/27/20 09:00 08/28/20 08:08 Furosemide 40 Mg/4 Ml Vial SLOW IVP 08/28/20 23:55 40 mg DAILY SUSANNA Administration Sodium Chloride 1,000 mls @ 75 mls/hr 08/27/20 12:30 08/28/20 12:27 Normal Saline 0.9% IV 1,000 mls .[id number] SUSANNA Administration Insulin Human Lispro 0 units 08/27/20 00:15 08/28/20 12:29 Humalog 300 Units/3 Ml Vial SC 2 unit .MILD SLIDING SCALE PRN Administration Mild Correctional Scale Sodium Chloride 10 ml 08/27/20 21:00 08/28/20 08:09 Flush - Normal Saline 10 Ml Syringe IVF 10 ml Q12HR SUSANNA Administration Sodium Chloride 10 ml 08/27/20 12:45 08/27/20 13:00 Flush - Normal Saline 10 Ml Syringe IVF 10 ml PRN PRN Administration Saline Flush Hospitalist Exam Vitals: Vital Signs (12 hours) Temp Pulse Resp BP BP BP Pulse Ox 08/28/20 15:47 98 F 72 20 171/99 H 97 08/28/20 12:32 72 182/87 H 08/28/20 12:15 98.1 F 80 20 181/80 H 98 08/28/20 08:00 97.2 F L 70 16 155/100 H 100 08/28/20 06:54 69 157/105 H Weight Admit Weight 170 lb 3.152 oz Weight 170 lb 3.152 oz General Appearance: NAD, awake alert General - other findings: Pleasantly confused. Picking at his bed sheets. Heart: RRR, no gallops, no rubs, II/IV Respiratory: CTAB, no wheezes, no rales, no ronchi Respiratory - other findings: Diminished right base Gastrointestinal: soft, non-tender, non-distended, normal bowel sounds, no pa lpable masses, no hepatomegaly, no splenomegaly, no bruit Extremities: no cyanosis, no clubbing, no edema Skin: normal turgor Neurological: no focal deficits Musculoskeletal: normal tone Psychiatric: not oriented Hosp A/P (1) Acute metabolic encephalopathy Code(s): G93.41 - METABOLIC ENCEPHALOPATHY Status: Acute (2) Rhabdomyolysis Code(s): M62.82 - RHABDOMYOLYSIS Status: Acute (3) Hypokalemia Code(s): E87.6 - HYPOKALEMIA Status: Acute (4) CAD (coronary artery disease) Code(s): I25.10 - ATHSCL HEART DISEASE OF [place] CORONARY ARTERY W/O ANG PCTRS Status: Chronic Qualifiers: Coronary Disease-Associated Artery/Lesion type: [place] artery [place] vs. 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 insulin use: without mcc use (6) Dyslipidemia Code(s): E78.5 - HYPERLIPIDEMIA, UNSPECIFIED Status: Chronic (7) Gout Code(s): M10.9 - GOUT, UNSPECIFIED Status: Chronic Qualifiers: Gout site: unspecified site (8) HTN (hypertension) Code(s): I10 - ESSENTIAL (PRIMARY) HYPERTENSION Status: Chronic Qualifiers: Hypertension type: essential hypertension Qualified Code(s): I10 - [place] (primary) hypertension (9) CKD (chronic kidney disease), stage III Code(s): N18.30 - CHRONIC KIDNEY DISEASE, STAGE 3 UNSPECIFIED Status: Acute (10) Elevated hemidiaphragm Code(s): J98.6 - DISORDERS OF DIAPHRAGM Status: Acute (11) Hypothermia Code(s): T68.XXXA - HYPOTHERMIA, INITIAL ENCOUNTER Status: Acute (12) History of peptic ulcer disease Code(s): Z87.11 - PERSONAL HISTORY OF PEPTIC ULCER DISEASE Status: Acute - Plan Acute metabolic encephalopathy: Patient was found down with hypothermia. Patient remains confused throughout this hospitalization. CT of the head shows chronic ischemic changes. Suspect the patient has some degree of underlying dementia. Will continue to monitor and take appropriate safety precautions. Unclear if the patient had any true syncopal episode. Will interrogate his [employer] recorder. Do not see any sign of sepsis at this point. He has normal temperature, no leukocytosis, negative chest x-ray, negative UA, negative blood cultures. We will DC antibiotics on 08/28/2020. Rhabdomyolysis: Patient has improving CPK. Initially was over 3000. Patient is at risk from rhabdomyolysis due to his advanced age and chronic kidney disease. Continue with moderate hydration. Hypothermia: Resolved. CKD stage III: Patient's GFR has been somewhat variable but he appears to be at his general baseline now. Discontinue diuretics. Continue gentle hydration. Diabetes mellitus: I have had a difficult time confirming the patient's home medications. It appears as though he was on Metformin back in March when he was discharged. We will resume his Metformin now. Continue Accu-Cheks, sliding scale. Hypertension: Blood pressure continues to run high. We will resume losartan, metoprolol, nifedipine. These appear to be his medications from his most recent discharge. Coronary artery disease: Continue aspirin and statin. DVT prophylaxis: Lovenox PUD prophylaxis: Pepcid.
[2020-08-28] MEDS ORDERED: hydrALAZINE 20 MG/ML VIAL SLOW IVP PRN (20:30)
[2020-08-28] MEDS: Atorvastatin Calcium 40 MG TAB PO SCH (20:40)
[2020-08-28] MEDS ORDERED: Famotidine 20 MG TAB PO SCH (21:00)
[2020-08-28] MEDS: clonazePAM 1 MG TAB PO SCH (22:44)
[2020-08-29] MEDS ORDERED: hydrALAZINE 20 MG/ML VIAL SLOW IVP SCH (00:30)
[2020-08-29] MEDS: Melatonin 3 MG TAB PO PRN (01:01)
[2020-08-29] MEDS: ALPRAZolam 0.5 MG TAB PO SCH (04:23)
[2020-08-29] MEDS: Sodium Chloride 0.9% 1,000 ML IV SCH (06:28)
[2020-08-29] MEDS: NIFEdipine XL 30 MG TAB PO SCH (08:09)
[2020-08-29] MEDS: Aspirin Chewable 81 MG TAB PO SCH (08:09)
[2020-08-29] MEDS: Enoxaparin Sodium 40 MG/0.4 ML SYRINGE SC SCH (08:10)
[2020-08-29] MEDS: Losartan 25 MG TAB PO SCH (08:10)
[2020-08-29] MEDS: clonazePAM 1 MG TAB PO SCH ×2 (08:10→23:54)
[2020-08-29] MEDS: metFORMIN 500 MG TAB PO SCH ×2 (08:10→16:55)
[2020-08-29] MEDS: Cholecalciferol 1,000 UNITS (25 MCG) TAB PO SCH (08:10)
[2020-08-29] MEDS: Allopurinol 100 MG TAB PO SCH (08:10)
[2020-08-29 09:12] LABS: Anion Gap 12 mmol/L (10-20); BUN (Urea Nitrogen) 26 mg/dL (8.4-25.7); Calc. Creatinine Clearance 61 mL/min (70-130); Calcium 8.6 mg/dL (7.8-10.44); Carbon Dioxide 26 mmol/L (23-31); Chloride 113 mmol/L (98-107); Glucose 152 mg/dL (83-110); Potassium 3.3 mmol/L (3.5-5.1); Sodium 148 mmol/L (136-145)
[2020-08-29] MEDS: D5 1/2 NS w/40 mEq KCL 1,000 ML IV SCH (12:30)
[2020-08-29] MEDS: HumaLOG 300 UNITS/3 ML VIAL SC PRN ×2 (12:41→17:47)
--- NOTE | 2020-08-29 19:47 | PDOC.HOSPP ---
- Subjective Encounter Date: 08/29/20 Subjective: Patient is a little bit somnolent today. Easily awakened. No complaints. - Objective Vital Signs & Weight: Vital Signs (12 hours) Temp Pulse Resp BP BP BP BP 08/29/20 18:00 80 18 08/29/20 16:00 98.1 F 76 15 08/29/20 14:00 71 18 08/29/20 11:59 98 F 77 15 08/29/20 11:17 103/62 97/60 107/63 08/29/20 10:00 78 18 08/29/20 08:09 72 142/71 H 08/29/20 08:00 97.7 F 72 18 BP BP Pulse Ox 08/29/20 18:00 103/62 08/29/20 16:00 101/69 99 08/29/20 14:00 97/54 L 08/29/20 11:59 107/63 98 08/29/20 11:17 08/29/20 10:00 116/76 95 08/29/20 08:09 08/29/20 08:00 142/71 H 96 Weight Admit Weight 170 lb 3.152 oz Weight 170 lb 3.152 oz I&O: 08/28/20 08/29/20 08/30/20 06:59 06:59 06:59 Intake Total 2167 926 Output Total 6634 2809 Balance -685 -1883 Result Diagrams: 08/28/20 11:22 08/29/20 08:35 Additional Labs: Accuchecks 08/29/20 08/29/20 08/29/20 16:39 11:20 06:07 POC Glucose 156 H 150 H 147 H 08/28/20 08/28/20 21:16 20:49 POC Glucose 176 H 164 H Hospitalist ROS - Medication Medications: Active Medications Generic Name Dose Route Start Last Admin Trade Name Freq PRN Reason Stop Dose Admin Allopurinol 100 mg 08/29/20 09:00 08/29/20 08:10 Allopurinol 100 Mg Tab PO 100 mg DAILY SUSANNA Administration Alprazolam 0.25 mg 08/28/20 21:00 08/29/20 04:23 Alprazolam 0.5 Mg Tab PO Not Given HS SUSANNA Aspirin 81 mg 08/29/20 09:00 08/29/20 08:09 Aspirin Chewable 81 Mg Tab PO 81 mg DAILY SUSANNA Administration Atorvastatin Calcium 40 mg 08/28/20 21:00 08/28/20 20:40 Atorvastatin Calcium 40 Mg Tab PO 40 mg HS SUSANNA Administration Cholecalciferol 2,000 units 08/29/20 09:00 08/29/20 08:10 Cholecalciferol 1,000 Units (25 Mcg) Tab PO 2,000 units DAILY SUSANNA Administration Clonazepam 1 mg 08/28/20 21:00 08/29/20 08:10 Clonazepam 1 Mg Tab PO 1 mg BID SUSANNA Administration Enoxaparin Sodium 40 mg 08/27/20 09:00 08/29/20 08:10 Enoxaparin Sodium 40 Mg/0.4 Ml Syringe SC 40 mg 0900 SUSANNA Administration Hydralazine HCl 5 mg 08/28/20 20:30 08/28/20 20:50 Hydralazine 20 Mg/Ml Vial SLOW IVP 5 mg Q4H PRN Administration SBP Greater Than 180 Potassium Chloride/Dextrose/Sod Cl 1,000 mls @ 75 mls/hr 08/29/20 10:45 08/29/20 12:30 D5 1/2 Ns W/40 Meq Kcl IV 1,000 mls .[id number] SUSANNA Administration Insulin Human Lispro 0 units 08/27/20 00:15 08/29/20 17:47 Humalog 300 Units/3 Ml Vial SC 2 unit .MILD SLIDING SCALE PRN Administration Mild Correctional Scale Losartan Potassium 50 mg 08/29/20 09:00 08/29/20 08:10 Losartan 25 Mg Tab PO 50 mg DAILY SUSANNA Administration Melatonin 3 mg 08/28/20 00:04 08/29/20 01:01 Melatonin 3 Mg Tab PO 3 mg HS PRN Administration Insomnia Metformin HCl 500 mg 08/29/20 08:00 08/29/20 16:55 Metformin 500 Mg Tab PO 500 mg BID-WM SUSANNA Administration Metoprolol Succinate 25 mg 08/29/20 09:00 08/29/20 08:10 Metoprolol Succinate Xl 25 Mg Tab PO 25 mg DAILY SUSANNA Administration Nifedipine 30 mg 08/29/20 09:00 08/29/20 08:09 Nifedipine Xl 30 Mg Tab PO 30 mg DAILY SUSANNA Administration Sodium Chloride 10 ml 08/27/20 21:00 08/29/20 08:13 Flush - Normal Saline 10 Ml Syringe IVF 10 ml Q12HR SUSANNA Administration Sodium Chloride 10 ml 08/27/20 12:45 08/27/20 13:00 Flush - Normal Saline 10 Ml Syringe IVF 10 ml PRN PRN Administration Saline Flush Hospitalist Exam Vitals: Vital Signs (12 hours) Temp Pulse Resp BP BP BP BP 08/29/20 18:00 80 18 08/29/20 16:00 98.1 F 76 15 08/29/20 14:00 71 18 08/29/20 11:59 98 F 77 15 08/29/20 11:17 103/62 97/60 107/63 08/29/20 10:00 78 18 08/29/20 08:09 72 142/71 H 08/29/20 08:00 97.7 F 72 18 BP BP Pulse Ox 08/29/20 18:00 103/62 08/29/20 16:00 101/69 99 08/29/20 14:00 97/54 L 08/29/20 11:59 107/63 98 08/29/20 11:17 08/29/20 10:00 116/76 95 08/29/20 08:09 08/29/20 08:00 142/71 H 96 Weight Admit Weight 170 lb 3.152 oz Weight 170 lb 3.152 oz General Appearance: NAD, awake alert Heart: RRR, no murmur, no gallops, no rubs, normal peripheral pulses Respiratory: CTAB, no wheezes, no rales, no ronchi, normal chest expansion, no tachypnea, normal percussion Gastrointestinal: soft, non-tender, non-distended, normal bowel sounds, no palpable masses, no hepatomegaly, no splenomegaly, no bruit Extremities: no cyanosis, no clubbing, no edema Neurological: no focal deficits Musculoskeletal: generalized weakness Psychiatric: somnolent Hosp A/P (1) Acute metabolic encephalopathy Code(s): G93.41 - METABOLIC ENCEPHALOPATHY Status: Acute (2) Rhabdomyolysis Code(s): M62.82 - RHABDOMYOLYSIS Status: Acute (3) Hypokalemia Code(s): E87.6 - HYPOKALEMIA Status: Acute (4) CAD (coronary artery disease) Code(s): I25.10 - ATHSCL HEART DISEASE OF [place] CORONARY ARTERY W/O ANG PCTRS Status: Chronic Qualifiers: Coronary Disease-Associated Artery/Lesion type: [place] artery [place] vs. 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 insulin use: without usp use (6) Dyslipidemia Code(s): E78.5 - HYPERLIPIDEMIA, UNSPECIFIED Status: Chronic (7) Gout Code(s): M10.9 - GOUT, UNSPECIFIED Status: Chronic Qualifiers: Gout site: unspecified site (8) HTN (hypertension) Code(s): I10 - ESSENTIAL (PRIMARY) HYPERTENSION Status: Chronic Qualifiers: Hypertension type: essential hypertension Qualified Code(s): I10 - Essential (primary) hypertension (9) CKD (chronic kidney disease), stage III Code(s): N18.30 - CHRONIC KIDNEY DISEASE, STAGE 3 UNSPECIFIED Status: Acute (10) Elevated hemidiaphragm Code(s): J98.6 - DISORDERS OF DIAPHRAGM Status: Acute (11) Hypothermia Code(s): T68.XXXA - HYPOTHERMIA, INITIAL ENCOUNTER Status: Acute (12) History of peptic ulcer disease Code(s): Z87.11 - PERSONAL HISTORY OF PEPTIC ULCER DISEASE Status: Acute - Plan Acute metabolic encephalopathy: Patient was found down with hypothermia. Patient remains confused throughout this hospitalization. CT of the head shows chronic ischemic changes. Suspect the patient has some degree of underlying dementia. Will continue to monitor and take appropriate safety precautions. Unclear if the patient had any true syncopal episode. [employer] recorder was interrogated with no significant findings Do not see any sign of sepsis at this point. He has normal temperature, no leukocytosis, negative chest x-ray, negative UA, negative blood cultures. We will DC antibiotics on 08/28/2020. Rhabdomyolysis: Patient has improving CPK. Initially was over 3000. Significantly improved on recheck Patient is at risk from rhabdomyolysis due to his advanced age and chronic kidn ey disease. Continue with moderate hydration. Hypothermia: Resolved. CKD stage III: Patient's GFR has been somewhat variable but he appears to be at his general baseline now. Discontinue diuretics. Continue gentle hydration. Diabetes mellitus: I have had a difficult time confirming the patient's home medications. It appears as though he was on Metformin back in March when he was discharged. We will resume his Metformin now. Continue Accu-Cheks, sliding scale. Hypertension: Blood pressure continues to run high. We will resume losartan, metoprolol, nifedipine. These appear to be his medications from his most recent discharge. Coronary artery disease: Continue aspirin and statin. DVT prophylaxis: Lovenox PUD prophylaxis: Pepcid. Disposition: Attempted to call the people listed in the record system is his MPOA. No answers. Patient will need placement.
[2020-08-29] MEDS: Atorvastatin Calcium 40 MG TAB PO SCH (20:38)
[2020-08-29] MEDS: Famotidine 20 MG TAB PO SCH (20:38)
[2020-08-30] MEDS: Melatonin 3 MG TAB PO PRN (02:46)
[2020-08-30] MEDS: D5 1/2 NS w/40 mEq KCL 1,000 ML IV SCH ×2 (02:46→16:58)
[2020-08-30] MEDS: ALPRAZolam 0.5 MG TAB PO SCH (04:46)
[2020-08-30] MEDS: Cholecalciferol 1,000 UNITS (25 MCG) TAB PO SCH (08:17)
[2020-08-30] MEDS: Enoxaparin Sodium 40 MG/0.4 ML SYRINGE SC SCH (08:17)
[2020-08-30] MEDS: NIFEdipine XL 30 MG TAB PO SCH (08:18)
[2020-08-30] MEDS: clonazePAM 1 MG TAB PO SCH ×2 (08:18→20:37)
[2020-08-30] MEDS: Allopurinol 100 MG TAB PO SCH (08:18)
[2020-08-30] MEDS: Losartan 25 MG TAB PO SCH (08:18)
[2020-08-30] MEDS: Aspirin Chewable 81 MG TAB PO SCH (08:18)
[2020-08-30] MEDS: Senokot 8.6 MG TAB PO PRN (08:18)
[2020-08-30] MEDS: metFORMIN 500 MG TAB PO SCH ×2 (08:20→16:58)
[2020-08-30 09:39] LABS: #Basophils 0.1 thou/uL (0.0-0.2); #Eosinphils 0.2 thou/uL (0.0-0.7); #Lymphocytes 1.6 thou/uL (1.20-3.40); #Monocytes 0.9 thou/uL (0.11-0.59); #Neutrophils 6.4 thou/uL (1.40-6.50); %Basophils 0.7 % (0.0-1.0); %Eosinophils 2.3 % (0.0-10.0); %Lymphocytes 17.3 % (21.0-51.0); %Monocytes 9.8 % (0.0-10.0); %Neutrophils 69.9 % (42.0-75.0); Hemoglobin 11.8 g/dL (14.0-18.0); Mean Corpuscular HGB CONC 32.7 g/dL (32.0-36.0); Mean Corpuscular Hemoglobin 29.7 pg (27.0-31.0); Mean Corpuscular Volume 90.9 fL (78.0-98.0); Platelet Count 140 thou/uL (130-400); RBC Distribution Width 14.6 % (11.5-14.5); Red Blood Cell (RBC) Count 3.96 mill/uL (4.70-6.10); White Blood Cell (WBC) Count 9.2 thou/uL (4.8-10.8)
[2020-08-30 09:53] LABS: Anion Gap 9 mmol/L (10-20); BUN (Urea Nitrogen) 27 mg/dL (8.4-25.7); Calc. Creatinine Clearance 53 mL/min (70-130); Calcium 8.5 mg/dL (7.8-10.44); Carbon Dioxide 28 mmol/L (23-31); Chloride 114 mmol/L (98-107); Glucose 179 mg/dL (83-110); Potassium 3.8 mmol/L (3.5-5.1); Sodium 147 mmol/L (136-145)
[2020-08-30] MEDS: HumaLOG 300 UNITS/3 ML VIAL SC PRN (12:35)
--- NOTE | 2020-08-30 16:04 | PDOC.HOSPP ---
- Subjective Encounter Date: 08/30/20 Subjective: Patient was very sleepy this morning. He has a sitter in the room today. She indicates the patient did not sleep much overnight. He ate breakfast this morning and then has been sleeping since. - Objective Vital Signs & Weight: Vital Signs (12 hours) Temp Pulse Resp BP BP BP Pulse Ox 08/30/20 14:00 97.6 F 76 17 133/77 95 08/30/20 11:33 97.5 F L 77 20 109/92 H 95 08/30/20 08:18 76 150/79 H 08/30/20 08:00 95 08/30/20 07:44 97.4 F L 75 20 150/79 H 97 08/30/20 06:00 97.6 F 80 18 144/70 H 96 Weight Admit Weight 170 lb 3.152 oz Weight 170 lb 3.152 oz I&O: 08/29/20 08/30/20 08/31/20 06:59 06:59 06:59 Intake Total 926 60 Output Total 4700 Balance -3774 60 Result Diagrams: 08/30/20 09:26 08/30/20 09:26 Additional Labs: Accuchecks 08/30/20 08/30/20 08/29/20 10:40 05:47 20:28 POC Glucose 187 H 144 H 183 H 08/29/20 16:39 POC Glucose 156 H Hospitalist ROS - Medication Medications: Active Medications Generic Name Dose Route Start Last Admin Trade Name Freq PRN Reason Stop Dose Admin Allopurinol 100 mg 08/29/20 09:00 08/30/20 08:18 Allopurinol 100 Mg Tab PO 100 mg DAILY SUSANNA Administration Alprazolam 0.25 mg 08/28/20 21:00 08/30/20 04:46 Alprazolam 0.5 Mg Tab PO Not Given HS SUSANNA Aspirin 81 mg 08/29/20 09:00 08/30/20 08:18 Aspirin Chewable 81 Mg Tab PO 81 mg DAILY SUSANNA Administration Atorvastatin Calcium 40 mg 08/28/20 21:00 08/29/20 20:38 Atorvastatin Calcium 40 Mg Tab PO 40 mg HS SUSANNA Administration Cholecalciferol 2,000 units 08/29/20 09:00 08/30/20 08:17 Cholecalciferol 1,000 Units (25 Mcg) Tab PO 2,000 units DAILY SUSANNA Administration Clonazepam 1 mg 08/28/20 21:00 08/30/20 08:18 Clonazepam 1 Mg Tab PO 1 mg BID SUSANNA Administration Enoxaparin Sodium 40 mg 08/27/20 09:00 08/30/20 08:17 Enoxaparin Sodium 40 Mg/0.4 Ml Syringe SC 40 mg 0900 SUSANNA Administration Famotidine 20 mg 08/29/20 21:00 08/29/20 20:38 Famotidine 20 Mg Tab PO 20 mg QPM SUSANNA Administration Hydralazine HCl 5 mg 08/28/20 20:30 08/28/20 20:50 Hydralazine 20 Mg/Ml Vial SLOW IVP 5 mg Q4H PRN Administration SBP Greater Than 180 Potassium Chloride/Dextrose/Sod Cl 1,000 mls @ 75 mls/hr 08/29/20 10:45 08/30/20 02:46 D5 1/2 Ns W/40 Meq Kcl IV 1,000 mls .[id number] SUSANNA Administration Insulin Human Lispro 0 units 08/27/20 00:15 08/30/20 12:35 Humalog 300 Units/3 Ml Vial SC 2 unit .MILD SLIDING SCALE PRN Administration Mild Correctional Scale Losartan Potassium 50 mg 08/29/20 09:00 08/30/20 08:18 Losartan 25 Mg Tab PO 50 mg DAILY SUSANNA Administration Melatonin 3 mg 08/28/20 00:04 08/30/20 02:46 Melatonin 3 Mg Tab PO 3 mg HS PRN Administration Insomnia Metformin HCl 500 mg 08/29/20 08:00 08/30/20 08:20 Metformin 500 Mg Tab PO 500 mg BID-WM SUSANNA Administration Metoprolol Succinate 25 mg 08/29/20 09:00 08/30/20 08:18 Metoprolol Succinate Xl 25 Mg Tab PO 25 mg DAILY SUSANNA Administration Nifedipine 30 mg 08/29/20 09:00 08/30/20 08:18 Nifedipine Xl 30 Mg Tab PO 30 mg DAILY SUSANNA Administration Senna 1 tab 08/29/20 10:43 08/30/20 08:18 Senokot 8.6 Mg Tab PO 1 tab HSPRN PRN Administration Constipation Sodium Chloride 10 ml 08/27/20 21:00 08/30/20 08:19 Flush - Normal Saline 10 Ml Syringe IVF 10 ml Q12HR SUSANNA Administration Sodium Chloride 10 ml 08/27/20 12:45 08/27/20 13:00 Flush - Normal Saline 10 Ml Syringe IVF 10 ml PRN PRN Administration Saline Flush Hospitalist Exam Vitals: Vital Signs (12 hours) Temp Pulse Resp BP BP BP Pulse Ox 08/30/20 14:00 97.6 F 76 17 133/77 95 08/30/20 11:33 97.5 F L 77 20 109/92 H 95 08/30/20 08:18 76 150/79 H 08/30/20 08:00 95 08/30/20 07:44 97.4 F L 75 20 150/79 H 97 08/30/20 06:00 97.6 F 80 18 144/70 H 96 Weight Admit Weight 170 lb 3.152 oz Weight 170 lb 3.152 oz General Appearance: NAD General - other findings: Somnolent Heart: RRR, no murmur, no gallops, no rubs, normal peripheral pulses Respiratory: CTAB, no wheezes, no rales, no ronchi, normal chest expansion, no tachypnea, normal percussion Gastrointestinal: soft, non-tender, non-distended, normal bowel sounds, no palpable masses, no hepatomegaly, no splenomegaly, no bruit Extremities: no cyanosis, no clubbing, no edema Skin: normal turgor Neurological: no focal deficits Musculoskeletal: generalized weakness Psychiatric: somnolent Hosp A/P (1) Acute metabolic encephalopathy Code(s): G93.41 - METABOLIC ENCEPHALOPATHY Status: Acute (2) Rhabdomyolysis Code(s): M62.82 - RHABDOMYOLYSIS Status: Acute (3) Hypokalemia Code(s): E87.6 - HYPOKALEMIA Status: Acute (4) CAD (coronary artery disease) Code(s): I25.10 - ATHSCL HEART DISEASE OF [place] CORONARY ARTERY W/O ANG PCTRS Status: Chronic Qualifiers: Coronary Disease-Associated Artery/Lesion type: [place] artery [place] vs. 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 use (6) Dyslipidemia Code(s): E78.5 - HYPERLIPIDEMIA, UNSPECIFIED Status: Chronic (7) Gout Code(s): M10.9 - GOUT, UNSPECIFIED Status: Chronic Qualifiers: Gout site: unspecified site (8) HTN (hypertension) Code(s): I10 - ESSENTIAL (PRIMARY) HYPERTENSION Status: Chronic Qualifiers: Hypertension type: essential hypertension Qualified Code(s): I10 - Essential (primary) hypertension (9) CKD (chronic kidney disease), stage III Code(s): N18.30 - CHRONIC KIDNEY DISEASE, STAGE 3 UNSPECIFIED Status: Acute (10) Elevated hemidiaphragm Code(s): J98.6 - DISORDERS OF DIAPHRAGM Status: Acute (11) Hypothermia Code(s): T68.XXXA - HYPOTHERMIA, INITIAL ENCOUNTER Status: Acute (12) History of peptic ulcer disease Code(s): Z87.11 - PERSONAL HISTORY OF PEPTIC ULCER DISEASE Status: Acute - Plan Acute metabolic encephalopathy: Patient was found down with hypothermia. Patient remains confused throughout this hospitalization. CT of the head shows chronic ischemic changes. Suspect the patient has some degree of underlying dementia. Will continue to monitor and take appropriate safety precautions. Unclear if the patient had any true syncopal episode. Linq recorder was interrogated with no significant findings Do not see any sign of sepsis at this point. He has normal temperature, no leukocytosis, negative chest x-ray, negative UA, negative blood cultures. We will DC antibiotics on 08/28/2020. Between 1920 it appears to be more chronic. We will add some Seroquel nightly in order to help the patient sleep better at night. Times the patient has tried to get out of bed on his own. Rhabdomyolysis: Patient has improving CPK. Initially was over 3000. Significantly improved on recheck Patient is at risk from rhabdomyolysis due to his advanced age and chronic kidney disease. Continue with moderate hydration. Hypothermia: Resolved. CKD stage III: Patient's GFR has been somewhat variable but he appears to be at his general baseline now. Discontinue diuretics. Continue gentle hydration. Diabetes mellitus: I have had a difficult time confirming the patient's home medications. It appears as though he was on Metformin back in March when he was discharged. We will resume his Metformin now. Continue Accu-Cheks, sliding scale. Hypertension: Blood pressure continues to run high. We will resume losartan, metoprolol, nifedipine. These appear to be his medications from his most recent discharge. Coronary artery disease: Continue aspirin and statin. Hypernatremia: Fluids changed to D5 half-normal saline. DVT prophylaxis: Lovenox PUD prophylaxis: Pepcid. Disposition: Attempted to call the people listed in the record system is his MPOA on 08/29/2020. No answers. Patient will need placement. Attempted again on 08/30/2020.
[2020-08-30] MEDS: Famotidine 20 MG TAB PO SCH (20:37)
[2020-08-30] MEDS: Atorvastatin Calcium 40 MG TAB PO SCH (20:38)
[2020-08-31] MEDS: ALPRAZolam 0.5 MG TAB PO SCH ×2 (01:59→23:18)
[2020-08-31] MEDS: D5 1/2 NS w/40 mEq KCL 1,000 ML IV SCH ×2 (05:57→17:45)
[2020-08-31] MEDS: Aspirin Chewable 81 MG TAB PO SCH (08:16)
[2020-08-31] MEDS: Enoxaparin Sodium 40 MG/0.4 ML SYRINGE SC SCH (08:16)
[2020-08-31] MEDS: NIFEdipine XL 30 MG TAB PO SCH (08:16)
[2020-08-31] MEDS: Cholecalciferol 1,000 UNITS (25 MCG) TAB PO SCH (08:17)
[2020-08-31] MEDS: Losartan 25 MG TAB PO SCH (08:17)
[2020-08-31] MEDS: clonazePAM 1 MG TAB PO SCH ×2 (08:17→20:59)
[2020-08-31] MEDS: Allopurinol 100 MG TAB PO SCH (08:18)
[2020-08-31] MEDS: metFORMIN 500 MG TAB PO SCH ×2 (08:18→17:45)
[2020-08-31 09:51] LABS: Anion Gap 9 mmol/L (10-20); BUN (Urea Nitrogen) 25 mg/dL (8.4-25.7); Calc. Creatinine Clearance 63 mL/min (70-130); Calcium 8.4 mg/dL (7.8-10.44); Carbon Dioxide 28 mmol/L (23-31); Chloride 114 mmol/L (98-107); Glucose 147 mg/dL (83-110); Potassium 4.3 mmol/L (3.5-5.1); Sodium 147 mmol/L (136-145)
--- NOTE | 2020-08-31 17:01 | PDOC.HOSPP ---
- Subjective Encounter Date: 08/31/20 Subjective: Patient denies any needs. When I asked how he is feeling he replied "with my hands". - Objective Vital Signs & Weight: Vital Signs (12 hours) Temp Pulse Resp BP BP BP Pulse Ox 08/31/20 15:32 97.5 F L 86 20 156/79 H 97 08/31/20 14:00 98.3 F 78 18 132/60 95 08/31/20 12:00 20 138/75 08/31/20 10:00 74 17 107/64 94 L 08/31/20 08:16 70 151/76 H 08/31/20 07:59 95 08/31/20 07:36 97.3 F L 79 20 151/76 H 97 08/31/20 05:58 97.9 F 68 16 133/68 95 Weight Admit Weight 170 lb 3.152 oz Weight 170 lb 3.152 oz I&O: 08/30/20 08/31/20 09/01/20 06:59 06:59 06:59 Intake Total 60 1260 Balance 60 1260 Result Diagrams: 08/30/20 09:26 08/31/20 09:01 Additional Labs: Accuchecks 08/31/20 08/30/20 08/30/20 10:43 20:21 16:46 POC Glucose 145 H 157 H 140 H Hospitalist ROS - Medication Medications: Active Medications Generic Name Dose Route Start Last Admin Trade Name Freq PRN Reason Stop Dose Admin Allopurinol 100 mg 08/29/20 09:00 08/31/20 08:18 Allopurinol 100 Mg Tab PO 100 mg DAILY SUSANNA Administration Alprazolam 0.25 mg 08/28/20 21:00 08/31/20 01:59 Alprazolam 0.5 Mg Tab PO Not Given HS SUSANNA Aspirin 81 mg 08/29/20 09:00 08/31/20 08:16 Aspirin Chewable 81 Mg Tab PO 81 mg DAILY SUSANNA Administration Atorvastatin Calcium 40 mg 08/28/20 21:00 08/30/20 20:38 Atorvastatin Calcium 40 Mg Tab PO 40 mg HS SUSANNA Administration Cholecalciferol 2,000 units 08/29/20 09:00 08/31/20 08:17 Cholecalciferol 1,000 Units (25 Mcg) Tab PO 2,000 units DAILY SUSANNA Administration Clonazepam 1 mg 08/28/20 21:00 02/20/21 08:17 Clonazepam 1 Mg Tab PO 1 mg BID SUSANNA Administration Enoxaparin Sodium 40 mg 08/27/20 09:00 08/31/20 08:16 Enoxaparin Sodium 40 Mg/0.4 Ml Syringe SC 40 mg 0900 SUSANNA Administration Famotidine 20 mg 08/29/20 21:00 08/30/20 20:37 Famotidine 20 Mg Tab PO 20 mg QPM SUSANNA Administration Hydralazine HCl 5 mg 08/28/20 20:30 08/28/20 20:50 Hydralazine 20 Mg/Ml Vial SLOW IVP 5 mg Q4H PRN Administration SBP Greater Than 180 Potassium Chloride/Dextrose/Sod Cl 1,000 mls @ 75 mls/hr 08/29/20 10:45 08/31/20 05:57 D5 1/2 Ns W/40 Meq Kcl IV 1,000 mls .[id number] SUSANNA Administration Insulin Human Lispro 0 units 08/27/20 00:15 08/30/20 12:35 Humalog 300 Units/3 Ml Vial SC 2 unit .MILD SLIDING SCALE PRN Administration Mild Correctional Scale Losartan Potassium 50 mg 08/29/20 09:00 08/31/20 08:17 Losartan 25 Mg Tab PO 50 mg DAILY SUSANNA Administration Melatonin 3 mg 08/28/20 00:04 08/30/20 02:46 Melatonin 3 Mg Tab PO 3 mg HS PRN Administration Insomnia Metformin HCl 500 mg 08/29/20 08:00 08/31/20 08:18 Metformin 500 Mg Tab PO 500 mg BID-WM SUSANNA Administration Metoprolol Succinate 25 mg 08/29/20 09:00 08/31/20 08:17 Metoprolol Succinate Xl 25 Mg Tab PO 25 mg DAILY SUSANNA Administration Nifedipine 30 mg 08/29/20 09:00 08/31/20 08:16 Nifedipine Xl 30 Mg Tab PO 30 mg DAILY SUSANNA Administration Quetiapine Fumarate 25 mg 08/30/20 21:00 08/30/20 20:37 Quetiapine Fumarate 25 Mg Tab PO 25 mg HS SUSANNA Administration Senna 1 tab 08/29/20 10:43 08/30/20 08:18 Senokot 8.6 Mg Tab PO 1 tab HSPRN PRN Administration Constipation Sodium Chloride 10 ml 08/27/20 21:00 08/30/20 20:38 Flush - Normal Saline 10 Ml Syringe IVF 10 ml Q12HR SUSANNA Administration Sodium Chloride 10 ml 08/27/20 12:45 08/27/20 13:00 Flush - Normal Saline 10 Ml Syringe IVF 10 ml PRN PRN Administration Saline Flush Hospitalist Exam Vitals: Vital Signs (12 hours) Temp Pulse Resp BP BP BP Pulse Ox 08/31/20 15:32 97.5 F L 86 20 156/79 H 97 08/31/20 14:00 98.3 F 78 18 132/60 95 08/31/20 12:00 20 138/75 08/31/20 10:00 74 17 107/64 94 L 08/31/20 08:16 70 151/76 H 08/31/20 07:59 95 08/31/20 07:36 97.3 F L 79 20 151/76 H 97 08/31/20 05:58 97.9 F 68 16 133/68 95 Weight Admit Weight 170 lb 3.152 oz Weight 170 lb 3.152 oz General Appearance: NAD General - other findings: Somnolent but easily awakened. Heart: RRR, no murmur, no gallops, no rubs, normal peripheral pulses Respiratory: CTAB, no wheezes, no rales, no ronchi, normal chest expansion, no tachypnea, normal percussion Gastrointestinal: soft, non-tender, non-distended, normal bowel sounds, no palpable masses, no hepatomegaly, no splenomegaly, no bruit Extremities: no cyanosis, no clubbing, no edema Skin: normal turgor Neurological: no focal deficits Musculoskeletal: generalized weakness (Fairly significant) Psychiatric: not oriented Hosp A/P (1) Acute metabolic encephalopathy Code(s): G93.41 - METABOLIC ENCEPHALOPATHY Status: Acute (2) Rhabdomyolysis Code(s): M62.82 - RHABDOMYOLYSIS Status: Acute (3) Hypokalemia Code(s): E87.6 - HYPOKALEMIA Status: Acute (4) CAD (coronary artery disease) Code(s): I25.10 - ATHSCL HEART DISEASE OF [place] CORONARY ARTERY W/O ANG PCTRS Status: Chronic Qualifiers: Coronary Disease-Associated Artery/Lesion type: [place] artery [place] vs. transplanted heart: [place] heart Associated angina: without angina Qualified Code(s): I25.10 - Atherosclerotic heart disease of [place] coronary artery without angina pectoris (5) DM2 (diabetes mellitus, type 2) Status: Chronic Qualifiers: Diabetes mellitus intermediate insulin use: without intermediate use (6) Dyslipidemia Code(s): E78.5 - HYPERLIPIDEMIA, UNSPECIFIED Status: Chronic (7) Gout Code(s): M10.9 - GOUT, UNSPECIFIED Status: Chronic Qualifiers: Gout site: unspecified site (8) HTN (hypertension) Code(s): I10 - ESSENTIAL (PRIMARY) HYPERTENSION Status: Chronic Qualifiers: Hypertension type: essential hypertension Qualified Code(s): I10 - Essential (primary) hypertension (9) CKD (chronic kidney disease), stage III Code(s): N18.30 - CHRONIC KIDNEY DISEASE, STAGE 3 UNSPECIFIED Status: Acute (10) Elevated hemidiaphragm Code(s): J98.6 - DISORDERS OF DIAPHRAGM Status: Acute (11) Hypothermia Code(s): T68.XXXA - HYPOTHERMIA, INITIAL ENCOUNTER Status: Acute (12) History of peptic ulcer disease Code(s): Z87.11 - PERSONAL HISTORY OF PEPTIC ULCER DISEASE Status: Acute - Plan Acute metabolic encephalopathy: Patient was found down with hypothermia. Patient remains confused throughout this hospitalization. CT of the head shows chronic ischemic changes. Suspect the patient has some degree of underlying dementia. Will continue to monitor and take appropriate safety precautions. Unclear if the patient had any true syncopal episode. Linq recorder was interrogated with no significant findings Do not see any sign of sepsis at this point. He has normal temperature, no leukocytosis, negative chest x-ray, negative UA, negative blood cultures. We will DC antibiotics on 08/28/2020. By 08/30/20 it appears to be more chronic. Added Seroquel 25 mg p.o. nightly on 08/30/2020 Rhabdomyolysis: Patient has improving CPK. Initially was over 3000. Significantly improved on recheck Continue with moderate hydration. Hypothermia: Resolved. CKD stage III: Patient initially required some hydration and his diuretics were held. His GFR improved from 47-82. [place] at his baseline is highly variable but he is typically in stage III chronic kidney disease Diabetes mellitus: I have had a difficult time confirming the patient's home medications. It appears as though he was on Metformin back in March when he was discharged. Continued his Metformin Continued Accu-Cheks, sliding scale. Blood sugars appeared to be well controlled with that regimen. Hypertension: Blood pressure continues to run high. Resumed losartan, metoprolol, nifedipine. These appear to be his medications from his most recent discharge. With that his blood pressure was well controlled. Coronary artery disease: Continue aspirin and statin. Hypernatremia: Fluids changed to D5 half-normal saline. Sodium level stabilized slightly improved. DVT prophylaxis: Lovenox PUD prophylaxis: Pepcid. Disposition: Attempted to call the people listed in the record system is his MPOA on 08/12. No answers. Patient will need placement. Attempted again on 08/30/2020. Again on 08/31/2020.
[2020-08-31] MEDS: HumaLOG 300 UNITS/3 ML VIAL SC PRN (17:44)
[2020-08-31] MEDS: Famotidine 20 MG TAB PO SCH (20:58)
[2020-08-31] MEDS: Atorvastatin Calcium 40 MG TAB PO SCH (20:58)
[2020-08-31] MEDS ORDERED: Acetaminophen 650 MG Suppository PR PRN (22:58)
[2020-08-31] MEDS ORDERED: Acetaminophen 325 MG TAB PO PRN (22:58)
[2020-09-01 04:59] LABS: #Basophils 0.1 thou/uL (0.0-0.2); #Eosinphils 0.2 thou/uL (0.0-0.7); #Lymphocytes 2.1 thou/uL (1.20-3.40); #Monocytes 1.4 thou/uL (0.11-0.59); #Neutrophils 8.5 thou/uL (1.40-6.50); %Basophils 0.6 % (0.0-1.0); %Eosinophils 1.9 % (0.0-10.0); %Lymphocytes 16.9 % (21.0-51.0); %Monocytes 11.2 % (0.0-10.0); %Neutrophils 69.4 % (42.0-75.0); Hemoglobin 12.1 g/dL (14.0-18.0); Mean Corpuscular HGB CONC 31.7 g/dL (32.0-36.0); Mean Corpuscular Hemoglobin 29.2 pg (27.0-31.0); Mean Corpuscular Volume 92.1 fL (78.0-98.0); Mean Platelet Volume 8.9 fL (7.4-10.4); Platelet Count 167 thou/uL (130-400); RBC Distribution Width 14.8 % (11.5-14.5); Red Blood Cell (RBC) Count 4.16 mill/uL (4.70-6.10); White Blood Cell (WBC) Count 12.2 thou/uL (4.8-10.8)
[2020-09-01 05:26] LABS: Anion Gap 12 mmol/L (10-20); BUN (Urea Nitrogen) 25 mg/dL (8.4-25.7); Calc. Creatinine Clearance 63 mL/min (70-130); Calcium 8.7 mg/dL (7.8-10.44); Carbon Dioxide 24 mmol/L (23-31); Chloride 112 mmol/L (98-107); Glucose 141 mg/dL (83-110); Potassium 4.5 mmol/L (3.5-5.1); Sodium 143 mmol/L (136-145)
[2020-09-01] MEDS: D5 1/2 NS w/40 mEq KCL 1,000 ML IV SCH ×2 (05:56→17:40)
[2020-09-01] MEDS: Enoxaparin Sodium 40 MG/0.4 ML SYRINGE SC SCH (08:08)
[2020-09-01] MEDS: Aspirin Chewable 81 MG TAB PO SCH (08:17)
[2020-09-01] MEDS: Cholecalciferol 1,000 UNITS (25 MCG) TAB PO SCH (08:17)
[2020-09-01] MEDS: Losartan 25 MG TAB PO SCH (08:17)
[2020-09-01] MEDS: Allopurinol 100 MG TAB PO SCH (08:18)
[2020-09-01] MEDS: metFORMIN 500 MG TAB PO SCH ×2 (08:18→17:39)
[2020-09-01] MEDS: clonazePAM 1 MG TAB PO SCH ×2 (08:18→20:54)
--- NOTE | 2020-09-01 09:37 | RAD ---
PORTABLE CHEST: HISTORY: Fever and leukocytosis. COMPARISON: 08/26/2020 exam. FINDINGS: Heart size is upper limits of normal. Atherosclerotic change is seen in the aorta. Elevation is not ed to the right hemidiaphragm. A loop recorder device is present. Surgical clips are seen over the right lateral chest and right axillary region. IMPRESSION: Stable exam. POS: OFF
[2020-09-01 11:03] LABS: Bacteria/HPF None Seen HPF (None Seen); Bilirubin Negative (Negative); Blood, Urine Negative (Negative); Clarity Clear (Clear); Glucose, Urine (Dipstick) Normal (Negative); Ketone, Urine Negative (Negative); Leukocyte Negative Leu/uL (Negative); Nitrite Negative (Negative); Protein, Urine (Dipstick) 50 mg/dL (Neg-Trace); RBC/HPF 0-3 HPF (0-3); Specific Gravity, Urine 1.014 (1.002-1.036); Squamous Epithelial 0-3 HPF (0-3); Urobilinogen Normal mg/dL (Less than 2); WBC/HPF None Seen HPF (0-3); pH, Urine 6.5 (5.0-9.0)
[2020-09-01 11:08] LABS: Urine Culture Reflex No No
[2020-09-01] MEDS: NIFEdipine XL 60 MG TAB PO SCH (11:56)
--- NOTE | 2020-09-01 17:32 | PDOC.HOSPP ---
- Subjective Encounter Date: 09/01/20 Subjective: It was fairly somnolent at the time of my exam today. He is not in restraints. No issues noted by nursing. - Objective Vital Signs & Weight: Vital Signs (12 hours) Temp Pulse Resp BP BP Pulse Ox 09/01/20 16:05 98.3 F 80 18 109/65 95 09/01/20 12:00 82 148/80 H 09/01/20 11:56 77 09/01/20 11:47 77 18 134/72 09/01/20 11:05 98.4 F 79 26 H 147/76 H 97 09/01/20 08:00 99.1 F 86 23 H 166/89 H 96 09/01/20 05:54 98.7 F 82 18 153/85 H 95 Weight Admit Weight 170 lb 3.152 oz Weight 170 lb 3.152 oz I&O: 08/31/20 09/01/20 09/02/20 06:59 06:59 06:59 Intake Total 1260 60 Balance 1260 60 Result Diagrams: 09/01/20 04:33 09/01/20 04:33 Additional Labs: Accuchecks 09/01/20 09/01/20 09/01/20 17:17 11:07 05:47 POC Glucose 169 H 141 H 138 H 08/31/20 21:09 POC Glucose 171 H Hospitalist ROS - Medication Medications: Active Medications Generic Name Dose Route Start Last Admin Trade Name Freq PRN Reason Stop Dose Admin Allopurinol 100 mg 08/29/20 09:00 09/01/20 08:18 Allopurinol 100 Mg Tab PO 100 mg DAILY SUSANNA Administration Alprazolam 0.25 mg 08/28/20 21:00 08/31/20 23:18 Alprazolam 0.5 Mg Tab PO Not Given HS SUSANNA Aspirin 81 mg 08/29/20 09:00 09/01/20 08:17 Aspirin Chewable 81 Mg Tab PO 81 mg DAILY SUSANNA Administration Atorvastatin Calcium 40 mg 08/28/20 21:00 08/31/20 20:58 Atorvastatin Calcium 40 Mg Tab PO 40 mg HS SUSANNA Administration Cholecalciferol 2,000 units 08/29/20 09:00 09/01/20 08:17 Cholecalciferol 1,000 Units (25 Mcg) Tab PO 2,000 units DAILY SUSANNA Administration Clonazepam 1 mg 08/28/20 21:00 09/01/20 08:18 Clonazepam 1 Mg Tab PO 1 mg BID SUSANNA Administration Enoxaparin Sodium 40 mg 08/27/20 09:00 09/01/20 08:08 Enoxaparin Sodium 40 Mg/0.4 Ml Syringe SC 40 mg 0900 SUSANNA Administration Famotidine 20 mg 08/29/20 21:00 08/31/20 20:58 Famotidine 20 Mg Tab PO 20 mg QPM SUSANNA Administration Hydralazine HCl 5 mg 08/28/20 20:30 08/28/20 20:50 Hydralazine 20 Mg/Ml Vial SLOW IVP 5 mg Q4H PRN Administration SBP Greater Than 180 Potassium Chloride/Dextrose/Sod Cl 1,000 mls @ 75 mls/hr 08/29/20 10:45 09/01/20 05:56 D5 1/2 Ns W/40 Meq Kcl IV Not Given .[id number] [facility] Insulin Human Lispro 0 units 08/27/20 00:15 08/31/20 17:44 Humalog 300 Units/3 Ml Vial SC 2 unit .MILD SLIDING SCALE PRN Administration Mild Correctional Scale Losartan Potassium 50 mg 08/29/20 09:00 09/01/20 08:17 Losartan 25 Mg Tab PO 50 mg DAILY SUSANNA Administration Melatonin 3 mg 08/28/20 00:04 08/30/20 02:46 Melatonin 3 Mg Tab PO 3 mg HS PRN Administration Insomnia Metformin HCl 500 mg 08/29/20 08:00 09/01/20 08:18 Metformin 500 Mg Tab PO 500 mg BID-WM SUSANNA Administration Metoprolol Succinate 25 mg 08/29/20 09:00 09/01/20 08:17 Metoprolol Succinate Xl 25 Mg Tab PO 25 mg DAILY SUSANNA Administration Nifedipine 60 mg 09/01/20 09:00 09/01/20 11:56 Nifedipine Xl 60 Mg Tab PO 60 mg DAILY SUSANNA Administration Senna 1 tab 08/29/20 10:43 08/30/20 08:18 Senokot 8.6 Mg Tab PO 1 tab HSPRN PRN Administration Constipation Sodium Chloride 10 ml 08/27/20 21:00 09/01/20 08:08 Flush - Normal Saline 10 Ml Syringe IVF 10 ml Q12HR SUSANNA Administration Sodium Chloride 10 ml 08/27/20 12:45 08/27/20 13:00 Flush - Normal Saline 10 Ml Syringe IVF 10 ml PRN PRN Administration Saline Flush Hospitalist Exam Vitals: Vital Signs (12 hours) Temp Pulse Resp BP BP Pulse Ox 09/01/20 16:05 98.3 F 80 18 109/65 95 09/01/20 12:00 82 148/80 H 09/01/20 11:56 77 09/01/20 11:47 77 18 134/72 09/01/20 11:05 98.4 F 79 26 H 147/76 H 97 09/01/20 08:00 99.1 F 86 23 H 166/89 H 96 09/01/20 05:54 98.7 F 82 18 153/85 H 95 Weight Admit Weight 170 lb 3.152 oz Weight 170 lb 3.152 oz General Appearance: NAD, awake alert Heart: RRR, no murmur, no gallops, no rubs Respiratory: CTAB, no wheezes, no rales, no ronchi Respiratory - other findings: Diminished right base Extremities: no cyanosis, no clubbing, no edema Skin: normal turgor Musculoskeletal: generalized weakness Psychiatric: somnolent Hosp A/P (1) Acute metabolic encephalopathy Code(s): G93.41 - METABOLIC ENCEPHALOPATHY Status: Acute (2) Rhabdomyolysis Code(s): M62.82 - RHABDOMYOLYSIS Status: Acute (3) Hypokalemia Code(s): E87.6 - HYPOKALEMIA Status: Acute (4) CAD (coronary artery disease) Code(s): I25.10 - ATHSCL HEART DISEASE OF [place] CORONARY ARTERY W/O ANG PCTRS Status: Chronic Qualifiers: Coronary Disease-Associated Artery/Lesion type: [place] artery [place] vs. transplanted heart: [place] heart Associated angina: without angina Qualified Code(s): I25.10 - Atherosclerotic heart disease of [place] coronary artery without angina pectoris (5) DM2 (diabetes mellitus, type 2) Status: Chronic Qualifiers: Diabetes mellitus skilled nursing insulin use: without skilled nursing use (6) Dyslipidemia Code(s): E78.5 - HYPERLIPIDEMIA, UNSPECIFIED Status: Chronic (7) Gout Code(s): M10.9 - GOUT, UNSPECIFIED Status: Chronic Qualifiers: Gout site: unspecified site (8) HTN (hypertension) Code(s): I10 - ESSENTIAL (PRIMARY) HYPERTENSION Status: Chronic Qualifiers: Hypertension type: essential hypertension Qualified Code(s): I10 - Essent ial (primary) hypertension (9) CKD (chronic kidney disease), stage III Code(s): N18.30 - CHRONIC KIDNEY DISEASE, STAGE 3 UNSPECIFIED Status: Acute (10) Elevated hemidiaphragm Code(s): J98.6 - DISORDERS OF DIAPHRAGM Status: Acute (11) Hypothermia Code(s): T68.XXXA - HYPOTHERMIA, INITIAL ENCOUNTER Status: Acute (12) History of peptic ulcer disease Code(s): Z87.11 - PERSONAL HISTORY OF PEPTIC ULCER DISEASE Status: Acute - Plan Acute metabolic encephalopathy: Patient was found down with hypothermia. Patient remains confused throughout this hospitalization. CT of the head shows chronic ischemic changes. Suspect the patient has some degree of underlying dementia. Will continue to monitor and take appropriate safety precautions. Unclear if the patient had any true syncopal episode. Linq recorder was interrogated with no significant findings Do not see any sign of sepsis at this point. He has normal temperature, no leukocytosis, negative chest x-ray, negative UA, negative blood cultures. We will DC antibiotics on 08/28/2020. By 08/30/20 it appears to be more chronic. Added Seroquel 25 mg p.o. nightly on 08/30/2020 Increased to 50 mg on 09/01/2020. Rhabdomyolysis: Patient has improving CPK. Initially was over 3000. Significantly improved on recheck Continue with moderate hydration. Hypothermia: Resolved. CKD stage III: Patient initially required some hydration and his diuretics were held. His GFR improved from 47-82. [place] at his baseline is highly variable but he is typically in stage III chronic kidney disease Diabetes mellitus: I have had a difficult time confirming the patient's home medications. It appears as though he was on Metformin back in March when he was discharged. Continued his Metformin Continued Accu-Cheks, sliding scale. Blood sugars appeared to be well controlled with that regimen. Hypertension: Blood pressure continues to run high. Resumed losartan, metoprolol, nifedipine. These appear to be his medications from his most recent discharge. With that his blood pressure was well controlled. Coronary artery disease: Continue aspirin and statin. Hypernatremia: Fluids changed to D5 half-normal saline. Sodium level stabilized slightly improved. DVT prophylaxis: Lovenox PUD prophylaxis: Pepcid. Disposition: Attempted to call the people listed in the record system is his MPOA on 08/29/2020. No answers. Patient will need placement. Attempted again on 08/30/2020. Again on 08/31/2020. I was able to speak to Mr. Hanks on 09/01/2020 at 1730. He indicated that his is the patient's sister and he is his [id number]. Apparently they have already communicated with case management here and the plan is to move the patient to a intermediate facility there and [place]. They are happy to do what ever is necessary in order to help facilitate that.
[2020-09-01] MEDS: HumaLOG 300 UNITS/3 ML VIAL SC PRN (17:39)
[2020-09-01] MEDS: ALPRAZolam 0.5 MG TAB PO SCH (20:53)
[2020-09-01] MEDS: Atorvastatin Calcium 40 MG TAB PO SCH (20:54)
[2020-09-01] MEDS: Famotidine 20 MG TAB PO SCH (20:54)
[2020-09-01] MEDS: Dextrose 5 %-0.45 % NaCl 1,000 ML IV SCH (22:26)
[2020-09-02] MEDS: Enoxaparin Sodium 40 MG/0.4 ML SYRINGE SC SCH (08:33)
[2020-09-02] MEDS: Aspirin Chewable 81 MG TAB PO SCH (08:34)
[2020-09-02] MEDS: Losartan 25 MG TAB PO SCH (08:34)
[2020-09-02] MEDS: Senokot 8.6 MG TAB PO PRN (08:34)
[2020-09-02] MEDS: NIFEdipine XL 60 MG TAB PO SCH (08:34)
[2020-09-02] MEDS: Cholecalciferol 1,000 UNITS (25 MCG) TAB PO SCH (08:34)
[2020-09-02] MEDS: clonazePAM 1 MG TAB PO SCH ×2 (08:35→20:31)
[2020-09-02] MEDS: metFORMIN 500 MG TAB PO SCH ×2 (08:35→16:16)
[2020-09-02] MEDS: Allopurinol 100 MG TAB PO SCH (08:35)
[2020-09-02] MEDS: HumaLOG 300 UNITS/3 ML VIAL SC PRN ×2 (11:32→17:37)
[2020-09-02] MEDS: Dextrose 5 %-0.45 % NaCl 1,000 ML IV SCH (16:17)
--- NOTE | 2020-09-02 19:20 | PDOC.HOSPP ---
- Subjective Encounter Date: 09/02/20 Subjective: Patient sleeps most of the time. He does awaken and will converse. Confused. - Objective Vital Signs & Weight: Vital Signs (12 hours) Temp Pulse Resp BP BP BP Pulse Ox 09/02/20 16:00 98.3 F 84 16 118/57 L 95 09/02/20 12:00 97.7 F 77 18 109/69 94 L 09/02/20 08:34 85 150/79 H 09/02/20 08:00 97.8 F 85 18 150/79 H 95 Weight Admit Weight 170 lb 3.152 oz Weight 162 lb 0.636 oz I&O: 09/01/20 09/02/20 09/03/20 06:59 06:59 06:59 Intake Total 60 905 240 Balance 60 905 240 Result Diagrams: 09/01/20 04:33 09/01/20 04:33 Additional Labs: Accuchecks 09/02/20 09/02/20 09/02/20 16:57 10:39 06:35 POC Glucose 180 H 185 H 140 H 09/01/20 21:39 POC Glucose 109 H Hospitalist ROS - Medication Medications: Active Medications Generic Name Dose Route Start Last Admin Trade Name Freq PRN Reason Stop Dose Admin Allopurinol 100 mg 08/29/20 09:00 09/02/20 08:35 Allopurinol 100 Mg Tab PO 100 mg DAILY SUSANNA Administration Alprazolam 0.25 mg 08/28/20 21:00 09/01/20 20:53 Alprazolam 0.5 Mg Tab PO Not Given HS SUSANNA Aspirin 81 mg 08/29/20 09:00 09/02/20 08:34 Aspirin Chewable 81 Mg Tab PO 81 mg DAILY SUSANNA Administration Atorvastatin Calcium 40 mg 08/28/20 21:00 09/01/20 20:54 Atorvastatin Calcium 40 Mg Tab PO 40 mg HS SUSANNA Administration Cholecalciferol 2,000 units 08/29/20 09:00 09/02/20 08:34 Cholecalciferol 1,000 Units (25 Mcg) Tab PO 2,000 units DAILY SUSANNA Administration Clonazepam 1 mg 08/28/20 21:00 09/02/20 08:35 Clonazepam 1 Mg Tab PO 1 mg BID SUSANNA Administration Enoxaparin Sodium 40 mg 08/27/20 09:00 09/02/20 08:33 Enoxaparin Sodium 40 Mg/0.4 Ml Syringe SC 40 mg 0900 SUSANNA Administration Famotidine 20 mg 08/29/20 21:00 09/01/20 20:54 Famotidine 20 Mg Tab PO 20 mg QPM SUSANNA Administration Hydralazine HCl 5 mg 08/28/20 20:30 08/28/20 20:50 Hydralazine 20 Mg/Ml Vial SLOW IVP 5 mg Q4H PRN Administration SBP Greater Than 180 Insulin Human Lispro 0 units 08/27/20 00:15 09/02/20 17:37 Humalog 300 Units/3 Ml Vial SC 2 unit .MILD SLIDING SCALE PRN Administration Mild Correctional Scale Losartan Potassium 50 mg 08/29/20 09:00 09/02/20 08:34 Losartan 25 Mg Tab PO 50 mg DAILY SUSANNA Administration Melatonin 3 mg 08/28/20 00:04 08/30/20 02:46 Melatonin 3 Mg Tab PO 3 mg HS PRN Administration Insomnia Metformin HCl 500 mg 08/29/20 08:00 09/02/20 16:16 Metformin 500 Mg Tab PO 500 mg BID-WM SUSANNA Administration Metoprolol Succinate 25 mg 08/29/20 09:00 09/02/20 08:34 Metoprolol Succinate Xl 25 Mg Tab PO 25 mg DAILY SUSANNA Administration Nifedipine 60 mg 09/01/20 09:00 09/02/20 08:34 Nifedipine Xl 60 Mg Tab PO 60 mg DAILY SUSANNA Administration Senna 1 tab 08/29/20 10:43 09/02/20 08:34 Senokot 8.6 Mg Tab PO 1 tab HSPRN PRN Administration Constipation Sodium Chloride 10 ml 08/27/20 21:00 09/02/20 08:35 Flush - Normal Saline 10 Ml Syringe IVF 10 ml Q12HR SUSANNA Administration Sodium Chloride 10 ml 08/27/20 12:45 08/27/20 13:00 Flush - Normal Saline 10 Ml Syringe IVF 10 ml PRN PRN Administration Saline Flush Hospitalist Exam Vitals: Vital Signs (12 hours) Temp Pulse Resp BP BP BP Pulse Ox 09/02/20 16:00 98.3 F 84 16 118/57 L 95 09/02/20 12:00 97.7 F 77 18 109/69 94 L 09/02/20 08:34 85 150/79 H 09/02/20 08:00 97.8 F 85 18 150/79 H 95 Weight Admit Weight 170 lb 3.152 oz Weight 162 lb 0.636 oz General - other findings: Somnolent, but easily awakens. Heart: RRR, no gallops, no rubs, normal peripheral pulses, II/IV Respiratory: CTAB, no wheezes, no rales, no ronchi, normal chest expansion, no tachypnea, normal percussion Gastrointestinal: soft, non-tender, non-distended, normal bowel sounds, no palpable masses, no hepatomegaly, no splenomegaly, no bruit Extremities: no cyanosis, no clubbing, no edema Skin: normal turgor Neurological: no focal deficits Musculoskeletal: generalized weakness Psychiatric: not oriented Hosp A/P (1) Acute metabolic encephalopathy Code(s): G93.41 - METABOLIC ENCEPHALOPATHY Status: Acute (2) Rhabdomyolysis Code(s): M62.82 - RHABDOMYOLYSIS Status: Acute (3) Hypokalemia Code(s): E87.6 - HYPOKALEMIA Status: Acute (4) CAD (coronary artery disease) Code(s): I25.10 - ATHSCL HEART DISEASE OF [place] CORONARY ARTERY W/O ANG PCTRS Status: Chronic Qualifiers: Coronary Disease-Associated Artery/Lesion type: [place] artery [place] vs. transplanted heart: [place] heart Associated angina: without angina Qualified Code(s): I25.10 - Atherosclerotic heart disease of [place] coronary artery without angina pectoris (5) DM2 (diabetes mellitus, type 2) Status: Chronic Qualifiers: Diabetes mellitus chcf insulin use: without patient appointment coordinator use (6) Dyslipidemia Code(s): E78.5 - HYPERLIPIDEMIA, UNSPECIFIED Status: Chronic (7) Gout Code(s): M10.9 - GOUT, UNSPECIFIED Status: Chronic Qualifiers: Gout site: unspecified site (8) HTN (hypertension) Code(s): I10 - ESSENTIAL (PRIMARY) HYPERTENSION Status: Chronic Qualifiers: Hypertension type: essential hypertension Qualified Code(s): I10 - Essential (primary) hypertension (9) CKD (chronic kidney disease), stage III Code(s): N18.30 - CHRONIC KIDNEY DISEASE, STAGE 3 UNSPECIFIED Status: Acute (10) Elevated hemidiaphragm Code(s): J98.6 - DISORDERS OF DIAPHRAGM Status: Acute (11) Hypothermia Code(s): T68.XXXA - HYPOTHERMIA, INITIAL ENCOUNTER Status: Acute (12) History of peptic ulcer disease Code(s): Z87.11 - PERSONAL HISTORY OF PEPTIC ULCER DISEASE Status: Acute - Plan Acute metabolic encephalopathy: Patient was found down with hypothermia. Patient remains confused throughout this hospitalization. CT of the head shows chronic ischemic changes. Suspect the patient has some degree of underlying dementia. Will continue to monitor and take appropriate safety precautions. Unclear if the patient had any true syncopal episode. Linq recorder was interrogated with no significant findings Do not see any sign of sepsis at this point. He has normal temperature, no leukocytosis, negative chest x-ray, negative UA, negative blood cultures. We will DC antibiotics on 08/28/2020. By 08/30/20 it appears to be more chronic. Added Seroquel 25 mg p.o. nightly on 08/30/2020 Increased to 50 mg on 09/01/2020. Rhabdomyolysis: Patient has improving CPK. Initially was over 3000. Significantly improved on recheck Continue with moderate hydration. Hydration ultimately discontinued. Hypothermia: Resolved. CKD stage III: Patient initially required some hydration and his diuretics were held. His GFR improved from 47-82. [place] at his baseline is highly variable but he is typically in stage III chr onic kidney disease Diabetes mellitus: I have had a difficult time confirming the patient's home medications. It appears as though he was on Metformin back in March when he was discharged. Continued his Metformin Continued Accu-Cheks, sliding scale. Blood sugars appeared to be well controlled with that regimen. Hypertension: Blood pressure continues to run high. Resumed losartan, metoprolol, nifedipine. These appear to be his medications from his most recent discharge. With that his blood pressure was well controlled. Coronary artery disease: Continue aspirin and statin. Hypernatremia: Fluids changed to D5 half-normal saline. Sodium level stabilized slightly improved. DVT prophylaxis: Lovenox PUD prophylaxis: Pepcid. Disposition: Attempted to call the people listed in the record system is his MPOA on 08/29/2020. No answers. Patient will need placement. Attempted again on . Again on 08/31/2020. I was able to speak to Mr. Hanks on 09/01/2020 at 1730. He indicated that his is the patient's sister and he is his [id number]. Apparently they have already communicated with case management here and the plan is to move the patient to a fdc facility there and [place]. They are happy to do what ever is necessary in order to help facilitate that. PCT facilitated conversation with the patient's family and MPOA's. Patient transitioned to DNAR.
[2020-09-02] MEDS: Famotidine 20 MG TAB PO SCH (20:31)
[2020-09-02] MEDS: Atorvastatin Calcium 40 MG TAB PO SCH (20:31)
[2020-09-03] MEDS: ALPRAZolam 0.5 MG TAB PO SCH (01:31)
[2020-09-03 05:19] LABS: #Eosinphils 0.4 thou/uL (0.0-0.7); #Lymphocytes 2.3 thou/uL (1.20-3.40); #Neutrophils 6.6 thou/uL (1.40-6.50); %Basophils 0.4 % (0.0-1.0); %Lymphocytes 22.1 % (21.0-51.0); %Monocytes 9.3 % (0.0-10.0); %Neutrophils 64.3 % (42.0-75.0); Hemoglobin 10.9 g/dL (14.0-18.0); Mean Corpuscular HGB CONC 32.5 g/dL (32.0-36.0); Mean Corpuscular Hemoglobin 29.9 pg (27.0-31.0); Mean Corpuscular Volume 92.1 fL (78.0-98.0); Mean Platelet Volume 8.2 fL (7.4-10.4); Platelet Count 178 thou/uL (130-400); RBC Distribution Width 14.8 % (11.5-14.5); Red Blood Cell (RBC) Count 3.64 mill/uL (4.70-6.10); White Blood Cell (WBC) Count 10.2 thou/uL (4.8-10.8)
[2020-09-03 05:19] LABS: BUN (Urea Nitrogen) 29 mg/dL (8.4-25.7); Calc. Creatinine Clearance 55 mL/min (70-130); Glucose 113 mg/dL (83-110)
[2020-09-03 05:31] LABS: Anion Gap 15 mmol/L (10-20); Carbon Dioxide 20 mmol/L (23-31); Chloride 113 mmol/L (98-107); Potassium 4.5 mmol/L (3.5-5.1); Sodium 143 mmol/L (136-145)
[2020-09-03] MEDS: Enoxaparin Sodium 40 MG/0.4 ML SYRINGE SC SCH (08:08)
[2020-09-03] MEDS: Aspirin Chewable 81 MG TAB PO SCH (08:09)
[2020-09-03] MEDS: metFORMIN 500 MG TAB PO SCH ×2 (08:09→17:57)
[2020-09-03] MEDS: Cholecalciferol 1,000 UNITS (25 MCG) TAB PO SCH (08:09)
[2020-09-03] MEDS: Losartan 25 MG TAB PO SCH (08:09)
[2020-09-03] MEDS: clonazePAM 1 MG TAB PO SCH (08:10)
[2020-09-03] MEDS: Allopurinol 100 MG TAB PO SCH (08:10)
[2020-09-03] MEDS: NIFEdipine XL 60 MG TAB PO SCH (08:10)
[2020-09-03] MEDS: HumaLOG 300 UNITS/3 ML VIAL SC PRN (12:16)
--- NOTE | 2020-09-03 17:42 | PDOC.HOSPP ---
- Subjective Encounter Date: 09/03/20 - Objective Vital Signs & Weight: Vital Signs (12 hours) Temp Pulse Pulse Pulse Resp BP BP 09/03/20 15:53 97.4 F L 78 18 09/03/20 11:48 97.7 F 79 18 09/03/20 09:07 86 84 113/57 L 101/60 09/03/20 08:10 83 09/03/20 07:52 98.5 F 83 18 BP Pulse Ox 09/03/20 15:53 129/69 96 09/03/20 11:48 126/66 95 09/03/20 09:07 09/03/20 08:10 09/03/20 07:52 144/82 H 96 Weight Admit Weight 170 lb 3.152 oz Weight 162 lb I&O: 09/02/20 09/03/20 09/04/20 06:59 06:59 06:59 Intake Total 905 400 180 Balance 905 400 180 Result Diagrams: 09/03/20 05:00 09/03/20 04:42 Additional Labs: Accuchecks 09/03/20 09/03/20 09/03/20 16:38 10:40 05:19 POC Glucose 99 173 H 112 H 09/02/20 20:30 POC Glucose 130 H Hospitalist ROS - Medication Medications: Active Medications Generic Name Dose Route Start Last Admin Trade Name Katarina PRN Reason Stop Dose Admin Allopurinol 100 mg 08/29/20 09:00 09/03/20 08:10 Allopurinol 100 Mg Tab PO 100 mg DAILY SUSANNA Administration Alprazolam 0.25 mg 08/28/20 21:00 09/03/20 01:31 Alprazolam 0.5 Mg Tab PO Not Given HS SUSANNA Aspirin 81 mg 08/29/20 09:00 09/03/20 08:09 Aspirin Chewable 81 Mg Tab PO 81 mg DAILY SUSANNA Administration Atorvastatin Calcium 40 mg 08/28/20 21:00 09/02/20 20:31 Atorvastatin Calcium 40 Mg Tab PO 40 mg HS SUSANNA Administration Cholecalciferol 2,000 units 08/29/20 09:00 09/03/20 08:09 Cholecalciferol 1,000 Units (25 Mcg) Tab PO 2,000 units DAILY SUSANNA Administration Clonazepam 1 mg 08/28/20 21:00 09/03/20 08:10 Clonazepam 1 Mg Tab PO 1 mg BID SUSANNA Administration Enoxaparin Sodium 40 mg 08/27/20 09:00 09/03/20 08:08 Enoxaparin Sodium 40 Mg/0.4 Ml Syringe SC 40 mg 0900 SUSANNA Administration Famotidine 20 mg 08/29/20 21:00 09/02/20 20:31 Famotidine 20 Mg Tab PO 20 mg QPM SUSANNA Administration Hydralazine HCl 5 mg 08/28/20 20:30 08/28/20 20:50 Hydralazine 20 Mg/Ml Vial SLOW IVP 5 mg Q4H PRN Administration SBP Greater Than 180 Insulin Human Lispro 0 units 08/27/20 00:15 09/03/20 12:16 Humalog 300 Units/3 Ml Vial SC 2 unit .MILD SLIDING SCALE PRN Administration Mild Correctional Scale Losartan Potassium 50 mg 08/29/20 09:00 09/03/20 08:09 Losartan 25 Mg Tab PO 50 mg DAILY SUSANNA Administration Melatonin 3 mg 08/28/20 00:04 08/30/20 02:46 Melatonin 3 Mg Tab PO 3 mg HS PRN Administration Insomnia Metformin HCl 500 mg 08/29/20 08:00 09/03/20 08:09 Metformin 500 Mg Tab PO 500 mg BID-WM SUSANNA Administration Metoprolol Succinate 25 mg 08/29/20 09:00 09/03/20 08:10 Metoprolol Succinate Xl 25 Mg Tab PO 25 mg DAILY SUSANNA Administration Nifedipine 60 mg 09/01/20 09:00 09/03/20 08:10 Nifedipine Xl 60 Mg Tab PO 60 mg DAILY SUSANNA Administration Quetiapine Fumarate 25 mg 09/02/20 19:17 09/02/20 20:32 Quetiapine Fumarate 25 Mg Tab PO 25 mg HS SUSANNA Administration Senna 1 tab 08/29/20 10:43 09/02/20 08:34 Senokot 8.6 Mg Tab PO 1 tab HSPRN PRN Administration Constipation Sodium Chloride 10 ml 08/27/20 21:00 09/03/20 08:10 Flush - Normal Saline 10 Ml Syringe IVF 10 ml Q12HR SUSANNA Administration Sodium Chloride 10 ml 08/27/20 12:45 08/27/20 13:00 Flush - Normal Saline 10 Ml Syringe IVF 10 ml PRN PRN Administration Saline Flush Hospitalist Exam Vitals: Vital Signs (12 hours) Temp Pulse Pulse Pulse Resp BP BP 09/03/20 15:53 97.4 F L 78 18 09/03/20 11:48 97.7 F 79 18 09/03/20 09:07 86 84 113/57 L 101/60 09/03/20 08:10 83 09/03/20 07:52 98.5 F 83 18 BP Pulse Ox 09/03/20 15:53 129/69 96 09/03/20 11:48 126/66 95 09/03/20 09:07 09/03/20 08:10 09/03/20 07:52 144/82 H 96 Weight Admit Weight 170 lb 3.152 oz Weight 162 lb General Appearance: NAD Heart: RRR, no murmur, no gallops, no rubs Respiratory: CTAB, no wheezes, no rales, no ronchi Gastrointestinal: soft, non-tender, non-distended, normal bowel sounds Extremities: no cyanosis, no clubbing Extremities - other findings: Left upper extremity edema. Largely dependent. Neurological: no focal deficits Musculoskeletal: generalized weakness Psychiatric: somnolent Hosp A/P (1) Acute metabolic encephalopathy Code(s): G93.41 - METABOLIC ENCEPHALOPATHY Status: Acute (2) Rhabdomyolysis Code(s): M62.82 - RHABDOMYOLYSIS Status: Acute (3) Hypokalemia Code(s): E87.6 - HYPOKALEMIA Status: Acute (4) CAD (coronary artery disease) Code(s): I25.10 - ATHSCL HEART DISEASE OF [place] CORONARY ARTERY W/O ANG PCTRS Status: Chronic Qualifiers: Coronary Disease-Associated Artery/Lesion type: [place] artery [place] vs. transplanted heart: [place] heart Associated angina: without angina Qualified Code(s): I25.10 - Atherosclerotic heart disease of [place] coronary artery without angina pectoris (5) DM2 (diabetes mellitus, type 2) Status: Chronic Qualifiers: Diabetes mellitus fdc insulin use: without fdc use (6) Dyslipidemia Code(s): E78.5 - HYPERLIPIDEMIA, UNSPECIFIED Status: Chronic (7) Gout Code(s): M10.9 - GOUT, UNSPECIFIED Status: Chronic Qualifiers: Gout site: unspecified site (8) HTN (hypertension) Code(s): I10 - ESSENTIAL (PRIMARY) HYPERTENSION Status: Chronic Qualifiers: Hypertension type: essential hypertension Qualified Code(s): I10 - Essential (primary) hypertension (9) CKD (chronic kidney disease), stage III Code(s): N18.30 - CHRONIC KIDNEY DISEASE, STAGE 3 UNSPECIFIED Status: Acute (10) Elevated hemidiaphragm Code(s): J98.6 - DISORDERS OF DIAPHRAGM Status: Acute (11) Hypothermia Code(s): T68.XXXA - HYPOTHERMIA, INITIAL ENCOUNTER Status: Acute (12) History of peptic ulcer disease Code(s): Z87.11 - PERSONAL HISTORY OF PEPTIC ULCER DISEASE Status: Acute - Plan Acute metabolic encephalopathy: Patient was found down with hypothermia. Patient remains confused throughout this hospitalization. CT of the head shows chronic ischemic changes. Suspect the patient has some degree of underlying dementia. Will continue to monitor and take appropriate safety precautions. Unclear if the patient had any true syncopal episode. Linq recorder was interrogated with no significant findings No evidence for sepsis He had normal temperature, no leukocytosis, negative chest x-ray, negative UA, negative blood cultures. Antibiotics were discontinued on 08/28/2020. By 08/30/20 it appears to be more chronic in nature. Added Seroquel 25 mg p.o. nightly on 08/30/2020 Increased to 50 mg on 09/01/2020. Patient subsequently remained fairly somnolent throughout the day. With that his Seroquel dose was reduced back down to 25 mg nightly. On 09/03/2020 the patient's benzodiazepines were decreased. Xanax was discontinued and clonazepam twice daily was decreased from 1 mg to 0.5 mg twice daily. Patient appears to be able to swallow adequately but concerning that he is not awake enough to adequately take fluids. He initially required acquired some additional medication as he was trying to get out of the bed independently and was put himself at risk. That appears to be resolved and therefore the plan is to minimize sedation. Rhabdomyolysis: Patient has improving CPK. Initially was over 3000. Significantly improved on recheck Continue with moderate hydration. Hydration ultimately discontinued. No evidence of renal injury. Hypothermia: Resolved. CKD stage III: Patient initially required some hydration and his diuretics were held. His GFR improved from 47-82. [place] at his baseline is highly variable but he is typically in stage III chronic kidney disease Diabetes mellitus: I have had a difficult time confirming the patient's home medications. It appears as though he was on Metformin back in March when he was discharged. Continued his Metformin Continued Accu-Cheks, sliding scale. Blood sugars appeared to be well controlled with that regimen. Hypertension: Blood pressure continues to run high. Resumed losartan, metoprolol, nifedipine. These appear to be his medications from his most recent discharge. With that his blood pressure was initially well controlled. Subsequently began to run a bit high and his nifedipine dose was increased from 30 mg to 60 mg. Coronary artery disease: Continue aspirin and statin. Hypernatremia: Fluids changed to D5 half-normal saline. Sodium level stabilized slightly improved. DVT prophylaxis: Lovenox History of peptic ulcer disease/PUD prophylaxis: Pantoprazole Disposition: Attempted to call the people listed in the record system is his MPOA on 08/29/2020. No answers. Patient will need placement. Attempted again on 08/30/2020. Again on 08/31/2020. I was able to speak to Mr. Hanks on 09/01/2020 at 1730. He indicated that his is the patient's sister and he is his [id number]. Apparently they have already communicated with case management here and the plan is to move the patient to a longterm facility there and [place]. They are happy to do what ever is necessary in order to help facilitate that. PCT facilitated conversation with the patient's family and MPOA's. Patient transitioned to DNAR. Palliative care met with patient's family on 09/03/2020 and completed the out of facility DNR. Plan is to get the patient placed in a skilled facility.
[2020-09-03] MEDS: Atorvastatin Calcium 40 MG TAB PO SCH (20:22)
--- NOTE | 2020-09-03 23:06 | ULT ---
DOPPLER VENOUS ULTRASOUND LEFT UPPER EXTREMITY INDICATION: Left upper extremity pain, redness and edema TECHNIQUE: Grayscale, color Doppler spectral Doppler images were obtained of the left internal jugula r vein, left subclavian vein, left axillary vein, left brachial vein, left cephalic, left basilic vein, the left ulnar vein and the left radial vein. FINDINGS: There is a nearly occlusive thrombus within the left cephalic vein in the mid left arm. The remaining venous segments of the left upper extremity including the left internal jugular vein, left subclavian vein, left axillary vein, left radial vein, left basilic vein, left ulnar vein and le ft radial vein are patent. IMPRESSION: Nearly occlusive thrombus of the left cephalic vein in the mid left arm
[2020-09-04] MEDS: clonazePAM 0.5 MG TAB PO SCH ×2 (02:10→09:41)
--- NOTE | 2020-09-04 08:02 | RAD ---
PORTABLE CHEST 1 VIEW: Date: 09/04/2020 Time: 0746 hours HISTORY: Low grade fever. COMPARISON: 09/01/2020. FINDINGS: The heart size is normal. The aorta is tortuous. There is continued elevation of the right hemidiaphr agm. A loop recorder device is again seen in the left hemithorax. No lobar consolidation, pneumothora russ, or pleural effusions are seen. Surgical clips in the right lateral chest and right axillary kylie on are again noted. IMPRESSION: No acute process. POS: OFF
[2020-09-04 08:05] LABS: #Eosinphils 0.2 thou/uL (0.0-0.7); #Lymphocytes 1.6 thou/uL (1.20-3.40); #Monocytes 0.9 thou/uL (0.11-0.59); #Neutrophils 6.6 thou/uL (1.40-6.50); %Basophils 0.1 % (0.0-1.0); %Lymphocytes 17.6 % (21.0-51.0); %Monocytes 9.3 % (0.0-10.0); Hemoglobin 11.8 g/dL (14.0-18.0); Mean Corpuscular HGB CONC 31.9 g/dL (32.0-36.0); Mean Corpuscular Hemoglobin 29.5 pg (27.0-31.0); Mean Corpuscular Volume 92.4 fL (78.0-98.0); Mean Platelet Volume 7.8 fL (7.4-10.4); Platelet Count 210 thou/uL (130-400); RBC Distribution Width 14.4 % (11.5-14.5); White Blood Cell (WBC) Count 9.3 thou/uL (4.8-10.8)
[2020-09-04] MEDS: NIFEdipine XL 60 MG TAB PO SCH (09:40)
[2020-09-04] MEDS: Allopurinol 100 MG TAB PO SCH (09:40)
[2020-09-04] MEDS: metFORMIN 500 MG TAB PO SCH ×2 (09:40→16:32)
[2020-09-04] MEDS: Losartan 25 MG TAB PO SCH (09:40)
[2020-09-04] MEDS: Cholecalciferol 1,000 UNITS (25 MCG) TAB PO SCH (09:40)
[2020-09-04] MEDS: Enoxaparin Sodium 40 MG/0.4 ML SYRINGE SC SCH (09:41)
[2020-09-04] MEDS: Aspirin Chewable 81 MG TAB PO SCH (09:41)
[2020-09-04] MEDS: HumaLOG 300 UNITS/3 ML VIAL SC PRN (12:31)
--- NOTE | 2020-09-04 14:40 | PDOC.HOSPP ---
- Objective Vital Signs & Weight: Vital Signs (12 hours) Temp Pulse Resp BP Pulse Ox 09/04/20 11:41 98.3 F 72 20 99/54 L 93 L 09/04/20 09:40 89 09/04/20 07:54 98.2 F 89 23 H 156/81 H 97 09/04/20 04:00 100.2 F H 106 H 24 H 143/76 H 94 L Weight Admit Weight 170 lb 3.152 oz Weight 167 lb 12.348 oz I&O: 09/03/20 09/04/20 09/05/20 06:59 06:59 06:59 Intake Total 400 240 120 Balance 400 240 120 Result Diagrams: 09/04/20 07:52 09/03/20 04:42 Additional Labs: Accuchecks 09/04/20 09/04/20 09/03/20 11:45 05:49 20:55 POC Glucose 154 H 108 H 124 H 09/03/20 16:38 POC Glucose 99 Hospitalist ROS - Medication Medications: Active Medications Generic Name Dose Route Start Last Admin Trade Name Freq PRN Reason Stop Dose Admin Allopurinol 100 mg 08/29/20 09:00 09/04/20 09:40 Allopurinol 100 Mg Tab PO 100 mg DAILY SUSANNA Administration Aspirin 81 mg 08/29/20 09:00 09/04/20 09:41 Aspirin Chewable 81 Mg Tab PO 81 mg DAILY SUSANNA Administration Atorvastatin Calcium 40 mg 08/28/20 21:00 09/03/20 20:22 Atorvastatin Calcium 40 Mg Tab PO 40 mg HS SUSANNA Administration Cholecalciferol 2,000 units 08/29/20 09:00 09/04/20 09:40 Cholecalciferol 1,000 Units (25 Mcg) Tab PO 2,000 units DAILY SUSANNA Administration Enoxaparin Sodium 40 mg 08/27/20 09:00 09/04/20 09:41 Enoxaparin Sodium 40 Mg/0.4 Ml Syringe SC 40 mg 0900 SUSANNA Administration Hydralazine HCl 5 mg 08/28/20 20:30 08/28/20 20:50 Hydralazine 20 Mg/Ml Vial SLOW IVP 5 mg Q4H PRN Administration SBP Greater Than 180 Insulin Human Lispro 0 units 08/27/20 00:15 09/04/20 12:31 Humalog 300 Units/3 Ml Vial SC 2 unit .MILD SLIDING SCALE PRN Administration Mild Correctional Scale Losartan Potassium 50 mg 08/29/20 09:00 09/04/20 09:40 Losartan 25 Mg Tab PO 50 mg DAILY SUSANNA Administration Melatonin 3 mg 08/28/20 00:04 08/30/20 02:46 Melatonin 3 Mg Tab PO 3 mg HS PRN Administration Insomnia Metformin HCl 500 mg 08/29/20 08:00 09/04/20 09:40 Metformin 500 Mg Tab PO 500 mg BID-WM SUSANNA Administration Metoprolol Succinate 25 mg 08/29/20 09:00 09/04/20 09:40 Metoprolol Succinate Xl 25 Mg Tab PO 25 mg DAILY SUSANNA Administration Nifedipine 60 mg 09/01/20 09:00 09/04/20 09:40 Nifedipine Xl 60 Mg Tab PO 60 mg DAILY SUSANNA Administration Pantoprazole Sodium 40 mg 09/04/20 09:00 09/04/20 09:40 Pantoprazole 40 Mg Tab PO 40 mg DAILY SUSANNA Administration Quetiapine Fumarate 25 mg 09/02/20 19:17 09/04/20 00:44 Quetiapine Fumarate 25 Mg Tab PO 25 mg HS SUSANNA Administration Senna 1 tab 08/29/20 10:43 09/02/20 08:34 Senokot 8.6 Mg Tab PO 1 tab HSPRN PRN Administration Constipation Sodium Chloride 10 ml 08/27/20 21:00 09/04/20 09:41 Flush - Normal Saline 10 Ml Syringe IVF 10 ml Q12HR SUSANNA Administration Sodium Chloride 10 ml 08/27/20 12:45 08/27/20 13:00 Flush - Normal Saline 10 Ml Syringe IVF 10 ml PRN PRN Administration Saline Flush Hospitalist Exam Vitals: Vital Signs (12 hours) Temp Pulse Resp BP Pulse Ox 09/04/20 11:41 98.3 F 72 20 99/54 L 93 L 09/04/20 09:40 89 09/04/20 07:54 98.2 F 89 23 H 156/81 H 97 09/04/20 04:00 100.2 F H 106 H 24 H 143/76 H 94 L Weight Admit Weight 170 lb 3.152 oz Weight 167 lb 12.348 oz General Appearance: NAD, awake alert General - other findings: Somnolent, but does awaken. Quickly back to sleep. Heart: RRR, no murmur, no gallops, no rubs, normal peripheral pulses Respiratory: CTAB, no wheezes, no rales, no ronchi, normal chest expansion, no tachypnea, normal percussion Gastrointestinal: soft, non-tender, non-distended, normal bowel sounds, no palpable masses, no hepatomegaly, no splenomegaly, no bruit Extremities - other findings: Left upper extremity edema Neurological: no new deficit Musculoskeletal: generalized weakness Psychiatric: somnolent, lethargic Hosp A/P (1) Acute metabolic encephalopathy Code(s): G93.41 - METABOLIC ENCEPHALOPATHY Status: Acute (2) Rhabdomyolysis Code(s): M62.82 - RHABDOMYOLYSIS Status: Acute (3) Hypokalemia Code(s): E87.6 - HYPOKALEMIA Status: Acute (4) CAD (coronary artery disease) Code(s): I25.10 - ATHSCL HEART DISEASE OF [place] CORONARY ARTERY W/O ANG PCTRS Status: Chronic Qualifiers: Coronary Disease-Associated Artery/Lesion type: [place] artery [place] vs. transplanted heart: [place] heart Associated angina: without angina Qualified Code(s): I25.10 - Atherosclerotic heart disease of [place] coronary artery without angina pectoris (5) DM2 (diabetes mellitus, type 2) Status: Chronic Qualifiers: Diabetes mellitus senior living insulin use: without senior living use (6) Dyslipidemia Code(s): E78.5 - HYPERLIPIDEMIA, UNSPECIFIED Status: Chronic (7) Gout Code(s): M10.9 - GOUT, UNSPECIFIED Status: Chronic Qualifiers: Gout site: unspecified site (8) HTN (hypertension) Code(s): I10 - ESSENTIAL (PRIMARY) HYPERTENSION Status: Chronic Qualifiers: Hypertension type: essential hypertension Qualified Code(s): I10 - Essential (primary) hypertension (9) CKD (chronic kidney disease), stage III Code(s): N18.30 - CHRONIC KIDNEY DISEASE, STAGE 3 UNSPECIFIED Status: Acute (10) Elevated hemidiaphragm Code(s): J98.6 - DISORDERS OF DIAPHRAGM Status: Acute (11) Hypothermia Code(s): T68.XXXA - HYPOTHERMIA, INITIAL ENCOUNTER Status: Acute (12) History of peptic ulcer disease Code(s): Z87.11 - PERSONAL HISTORY OF PEPTIC ULCER DISEASE Status: Acute - Plan Acute metabolic encephalopathy: Patient was found down with hypothermia. Patient remains confused throughout this hospitalization. CT of the head shows chronic ischemic changes. Suspect the patient has some degree of underlying dementia. Will continue to monitor and take appropriate safety precautions. Unclear if the patient had any true syncopal episode. Linq recorder was interrogated with no significant findings No evidence for sepsis He had normal temperature, no leukocytosis, negative chest x-ray, negative UA, negative blood cultures. Antibiotics were discontinued on 08/28/2020. By 08/30/20 it appears to be more chronic in nature. Added Seroquel 25 mg p.o. nightly on 08/30/2020 Increased to 50 mg on 09/01/2020. Patient subsequently remained fairly somnolent throughout the day. With that his Seroquel dose was reduced back down to 25 mg nightly. On 09/03/2020 the patient's benzodiazepines were decreased. Xanax was discontinued and clonazepam twice daily was decreased from 1 mg to 0.5 mg twice daily. Patient appears to be able to swallow adequately but concerning that he is not awake enough to adequately take fluids. He initially required acquired some additional medication as he was trying to get out of the bed independently and was put himself at risk. That appears to be resolved and therefore the plan is to minimize sedation. 09/04/2020 the patient remains apparently somewhat sedated. Discontinued the clonazepam entirely. If he remains somnolent, would likely DC the Seroquel. Rhabdomyolysis: Patient has improving CPK. Initially was over 3000. Significantly improved on recheck Continue with moderate hydration. Hydration ultimately discontinued. No evidence of renal injury. Hypothermia: Resolved. CKD stage III: Patient initially required some hydration and his diuretics were held. His GFR improved from 47-82. [place] at his baseline is highly variable but he is typically in stage III chronic kidney disease Diabetes mellitus: I have had a difficult time confirming the patient's home medications. It appears as though he was on Metformin back in March when he was discharged. Continued his Metformin Continued Accu-Cheks, sliding scale. Blood sugars appeared to be well controlled with that regimen. Hypertension: Blood pressure continues to run high. Resumed losartan, metoprolol, nifedipine. These appear to be his medications from his most recent discharge. With that his blood pressure was initially well controlled. Subsequently began to run a bit high and his nifedipine dose was increased from 30 mg to 60 mg. Coronary artery disease: Continue aspirin and statin. Hypernatremia: Fluids changed to D5 half-normal saline. Sodium level stabilized slightly improved. DVT prophylaxis: Lovenox History of peptic ulcer disease/PUD prophylaxis: Pantoprazole Disposition: Ultimately, we made contact with the patient's family. They are amenable to moving the patient to a facility. I spoke with his niece, Valery. I relayed that the patient is still very encephalopathic on top of his baseline dementia. He has not improved much with the reduction of sedation. I do not believe he will regain cognitive function to the degree that he will ever be able to have decision making capacity. The family to be prepared to do what they need to do in order to help him manage his affairs. I am concerned that he will not be able to swallow adequately and may continue to have some mild aspiration. The family is firm he would not want a PEG. He is given diet with risk now. It wou ld be reasonable to consider a more palliative approach should he develop recurrent aspiration, which he may be doing now. She felt his might be a reasonable approach.
[2020-09-04] MEDS ORDERED: Bisacodyl 10 MG SUPP PR PRN (16:04)
[2020-09-04] MEDS: Atorvastatin Calcium 40 MG TAB PO SCH (20:59)
[2020-09-05] MEDS: Enoxaparin Sodium 40 MG/0.4 ML SYRINGE SC SCH (10:02)
[2020-09-05] MEDS: Losartan 25 MG TAB PO SCH (10:04)
[2020-09-05] MEDS: NIFEdipine XL 60 MG TAB PO SCH (10:04)
[2020-09-05] MEDS: metFORMIN 500 MG TAB PO SCH (10:08)
[2020-09-05] MEDS: Allopurinol 100 MG TAB PO SCH (10:08)
[2020-09-05] MEDS: Cholecalciferol 1,000 UNITS (25 MCG) TAB PO SCH (10:10)
[2020-09-05] MEDS: Aspirin Chewable 81 MG TAB PO SCH (10:10)
[2020-09-05 11:59] VITALS: TEMP 98.2
[2020-09-05 19:10] VITALS: BP 100/61
--- NOTE | 2020-09-06 14:12 | PQF ---
CLINICAL DOCUMENTATION CLARIFICATION FORM: Dear : Min Hill MD Date / Time: 09/06/2020 Please exercise your independent, professional judgment in responding to the clarification form. Clinical indicators are provided on the bottom of this form for your review Please check appropriate box(es): HEART FAILURE: A. TYPE: [ ] Systolic / HFrEF [ ] Diastolic / HFpEF [ ] Combined Systolic / Diastolic [ x ] Other diagnosis No CHF_(Please specify if any) [ ] Unable to determine Physician Signature: Date/Time: For continuity of documentation, please document condition throughout progress notes and discharge summary. Thank You. To be completed by CDI/Coding staff for physician review: Present Clinical Indicators - Signs / Symptoms / Labs Results and Location in Medical Record [x] Ejection Fraction = 55 - 60 % Echo on 08/28 [ ] Dyspnea, Hypoxia [x] Peripheral edema - LE edema Hospitalist progress notes on 08/27 [x] Elevated BNP 519.2 Laboratory on 08/26 [x] Heart failure exacerbation H&P on 08/26 [ ] Orthopnea / SOB / dyspnea [ ] Pleural effusion / pulmonary edema [x] CXR results cardiomegaly with mild vascular congestion Chest x ray on 08/26 [ ] Arrhythmia--tachycardia Present Risk Factors Results and Location in Medical Record [ [x] History of CAD/ischemic heart disease H&P on 08/26 [x] CKD Hypertension H&P on 08/26 [ ] History of [place] Present Treatments Results and Location in Medical Record [ ] Administration of SAIMA / ARB / BB [ ] Cardiac monitoring / telemetry/ECHO [x] Lasix 40 mg IV Medication on 08/27,08/28 [x] Losartan 50 mg po Medication from 08/29 to 09/05 [ ] AICD [ ] Cardiology Consult CDS/Senior Bookkeeper Signature: AAS Phone #: Date/Time: 09/06/2020 This is a permanent part of the Medical Record [facility]
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
== END 2020-09-05 18:30 | DRG 557 ==
LOC: ERS 17:49 → ERHOLD 20:11 → 2SE 08-27 00:31
PROVIDERS: ADMIT Student in an Organized Health Care Education/Training Program; ATTEND Internal Medicine
DX: M62.82 Rhabdomyolysis (principal); G93.41 Metabolic encephalopathy; N17.9 Acute kidney failure, unspecified; E87.0 Hyperosmolality and hypernatremia; T68.XXXA Hypothermia, initial encounter; E87.6 Hypokalemia; J98.6 Disorders of diaphragm; Z66 Do not resuscitate; M10.9 Gout, unspecified; R77.8 Other specified abnormalities of plasma proteins; E78.5 Hyperlipidemia, unspecified; Z20.822 Contact with and (suspected) exposure to COVID-19; I25.10 Atherosclerotic heart disease of native coronary artery without angina pectoris; D64.9 Anemia, unspecified; N18.30 Chronic kidney disease, stage 3 unspecified; E11.22 Type 2 diabetes mellitus with diabetic chronic kidney disease; E86.0 Dehydration; Z95.2 Presence of prosthetic heart valve; Z95.1 Presence of aortocoronary bypass graft; Z88.0 Allergy status to penicillin; Z79.899 Other long term (current) drug therapy; Z79.84 Long term (current) use of oral hypoglycemic drugs; Z79.82 Long term (current) use of aspirin; Z79.2 Long term (current) use of antibiotics; Z95.4 Presence of other heart-valve replacement; Z87.11 Personal history of peptic ulcer disease; I12.9 Hypertensive chronic kidney disease with stage 1 through stage 4 chronic kidney disease, or unspecified chronic kidney disease
CPT/HCPCS: 0240U; 36415; 36416; 36600; 51702; 70450; 71045; 80048; 80053; 80306; 80307; 81001; 81003; 81015; 82533; 82550; 82553; 82805; 83605; 83735; 83880; 84100; 84439; 84443; 84484; 85025; 85610; 85730; 87040; 87086; 93005; 93306; 96365; 96366; 96375; 99292; J0360; J0456; J0461; J0692; J0696; J1650; J1815; J1940; J2060; J3370; J3480; J3490; J7050